=== PATIENT | male | born 1965 | race Caucasian/White ===

== ENCOUNTER 2022-11-05 10:58 | Outpatient (OUT) | payer OTHER, SELFPAY | END 2022-11-05 10:59 | disposition home or self-care (01) | LOC: WC 10:58 | PROVIDERS: PCP Podiatrist Foot & Ankle Surgery; Visit Provider Podiatrist Foot & Ankle Surgery | DX: L89.623 Pressure ulcer of left heel, stage 3 (principal); R60.0 Localized edema; G90.09 Other idiopathic peripheral autonomic neuropathy | CPT/HCPCS: A6213; G0463 ==

== ENCOUNTER 2022-12-03 10:51 | Outpatient (OUT) | payer SELFPAY | END 2022-12-03 10:52 | disposition home or self-care (01) | LOC: WC 10:52 | PROVIDERS: PCP Podiatrist Foot & Ankle Surgery; Visit Provider Podiatrist Foot & Ankle Surgery | DX: L89.623 Pressure ulcer of left heel, stage 3 (principal) | CPT/HCPCS: G0463 ==

== ENCOUNTER 2023-05-28 11:45 | Outpatient (OUT) | payer OTHER, SELFPAY ==
[2023-05-28 12:30] LABS: Basophils Percent Auto 0.5 % (0.2-2.0); Eosinophils Absolute Auto 0.2 10^3/uL (0.0-0.7); Eosinophils Percent Auto 1.9 % (0.9-7.0); Hematocrit 42.1 % (42.0-54.0); Hemoglobin 13.7 g/dL (14.0-18.0); Immature Granulocytes Abs Auto 0.04 10^3/uL (0.00-0.03); Immature Granulocytes Pct Auto 0.5 % (0.0-0.5); Lymphocytes Absolute Auto 1.7 10^3/uL (1.2-3.8); Lymphocytes Percent Auto 19.8 % (20.5-60.0); Mean Corpuscular HGB Conc 32.5 g/dL (29.9-35.2); Mean Corpuscular Hemoglobin 28.7 pg (25.9-34.0); Mean Corpuscular Volume 88.1 fL (80.0-94.0); Mean Platelet Volume 9.2 fL (9.5-13.5); Monocytes Absolute Auto 0.7 10^3/uL (0.3-0.8); Neutrophils Absolute Auto 5.9 10^3/uL (1.4-6.5); Neutrophils Percent Auto 69.3 % (43.0-75.0); Platelet Count 253 10^3/uL (150-450); Red Blood Count 4.78 10^6/uL (4.70-6.10); Red Cell Distribution Width 14.1 % (11.0-15.0); White Blood Count 8.5 10^3/uL (4.0-11.0)
[2023-05-28 12:40] LABS: Estimated Average Glucose 117 mg/dL; Glycohemoglobin A1C 5.7 % (4.5-6.2)
[2023-05-28 13:06] LABS: Alanine Aminotransferase 32 U/L (16-63); Albumin Globulin Ratio 0.9; Albumin Level 3.3 g/dL (3.4-5.0); Alkaline Phosphatase 101 U/L (46-116); Anion Gap 16.7; Aspartate Amino Transferase 17 U/L (15-37); BUN Creatinine Ratio 22.1; Bilirubin Direct 0.1 mg/dL (0.0-0.2); Bilirubin Total 0.5 mg/dL (0.2-1.0); Calcium 8.7 mg/dL (8.5-10.1); Carbon Dioxide 25.9 mmol/L (21.0-32.0); Chloride 115 mmol/L (98-107); Chol HDL Ratio 3.6; Cholesterol 146 mg/dL (<=200); Estimated GFR (African America >60 (>=60); Estimated GFR (Non-African Ame >60 (>=60); Globulin 3.7 g/dL; Glucose 93 mg/dL (74-106); HDL Cholesterol 41 mg/dL (40-60); LDL Cholesterol Calculated 77.4 mg/dL; Potassium 4.6 mmol/L (3.5-5.1); Sodium 153 mmol/L (136-145); TSH W/ REFLEX FT4 2.064 uIU/mL (0.358-3.740); Triglycerides 138 mg/dL (<=150); VLDL CHOLESTEROL 27.6 mg/dL
== END 2023-05-28 11:46 | disposition home or self-care (01) ==
DX: E78.00 Pure hypercholesterolemia, unspecified (principal); I10 Essential (primary) hypertension; Z12.5 Encounter for screening for malignant neoplasm of prostate; I87.2 Venous insufficiency (chronic) (peripheral)
CPT/HCPCS: 36415; 80048; 80061; 80076; 83036; 84153; 84443; 85025

== ENCOUNTER 2023-10-15 14:32 | Outpatient (OUT) | payer OTHER, MEDICARE, SELFPAY | END 2023-10-15 14:33 | disposition home or self-care (01) | LOC: LAB 14:40 | DX: M85.80 Other specified disorders of bone density and structure, unspecified site (principal) | CPT/HCPCS: 36415; 82306 ==

== ENCOUNTER 2023-12-08 16:55 | Outpatient (OUT) | payer OTHER, MEDICARE, SELFPAY ==
--- NOTE | 2023-12-08 17:08 | US_ITS ---
[place] [id number] Patient Name: WENDIE SMITH MRN: [id number] date: 1965 Sex: M Assigned Patient Location: US Current Patient Location: Accession/Order Number: [id number] Exam Date: 12/08/2023 17:36 Report Date: 12/09/2023 07:08 At the request of: NON-STAFF PHYSICIAN Procedure: US venous doppler LE BI EXAM: US venous doppler LE BI HISTORY: Venous insufficiency (chronic) (peropheral) I87.2 COMPARISON: None. TECHNIQUE: Grayscale, color and Doppler FINDINGS: Region: Bilateral legs Thrombus: None Flow: Normal Augmentation: Normal Compressibility: Normal Other: Moderate bilateral subcutaneous edema US/US venous doppler LE BI IMPRESSION: No deep or superficial vein thrombus in the legs Electronically authenticated by: AYANA IRBY Date: 12/09/2023 07:08
--- OUTSIDE RECORDS SUMMARY | 2023-12-08 17:09 | XMS_ITS | CCD ---
Author Organization [facility] Care Team Providers Care Liquid Compounder Name Role Phone MD Rebecca Workman Primary Care Provide r MD Rebecca Workman Attending Provider KRANTHI MCPHERSON Primary Care Physician [phone] MD Rebecca Workman Primary Care Provide r MD Rebecca Workman Attending Provider MD Rebecca Workman Primary Care Provide r MD Rebecca Workman Attending Provider IDA [facility] Emergency Provider SARAH ALANIS Attending Unavailable SARAH ALANIS Attending Unavailable BERTHA TEJADA Admitting Unavailable BERTHA TEJADA Attending Unavailable REQUEST, NONE LISTED Primary Care Unavaila BERTHA Baldwin Admitting Unavailable BERTHA TEJADA Attending Unavailable REQUEST, NONE LISTED Primary Care Unavaila BERTHA Baldwin Admitting Unavailable BERTHA TEJADA Attending Unavailable REQUEST, NONE LISTED Primary Care Unavaila ble MARTINA, DR PIPO Recio Consulting Unavailable BERTHA TEJADA Consulting Unavailable BERTHA TEJADA Admitting Unavailable BERTHA TEJADA Attending Unavailable REQUEST, NONE LISTED Primary Care Unavaila BERTHA Baldwin Attending Unavailable REQUEST, NONE LISTED Primary Care Unavaila BERTHA Baldwin Admitting Unavailable BERTHA TEJADA Admitting Unavailable BERTHA TEJADA Attending Unavailable REQUEST, NONE LISTED Primary Care Unavaila BERTHA Baldwin Admitting Unavailable BERTHA TEJADA Attending Unavailable REQUEST, NONE LISTED Primary Care Unavaila ble HIGHLANDER, BERTHA Elias Admitting Unavailable HIGHLANDER, BERTHA Elias Attending Unavailable REQUEST, NONE LISTED Primary Care Unavaila ble MISC, DR BERNARD Attending Unavailable MISC, DR BERNARD Admitting Unavailable REQUEST, NONE LISTED Primary Care Unavaila ble REQUEST, NONE LISTED Primary Care Unavaila ble MISC, DR BERNARD Attending Unavailable MISC, DR BERNARD Consulting Unavailable MISC, DR BERNARD Admitting Unavailable MAGNO, YVONNE Attending Unavailable MAGNO, YVONNE Admitting Unavailable GRECHHAL ., MARY ELLEN REYNAGA Consulting Unavailabl e REQUEST, NONE LISTED Primary Care Unavaila ble Hause-Wardega, Rebecca Primary Care Unavail able Leyda, Thom Attending Unavailable Leyda, Thom Admitting Unavailable HAUSE-WARDEGA, REBECCA K Referring Unava ilable MUTNAL, AMAR B Attending Unavailable MUTNAL, AMAR B Attending Unavailable HAUSE-WARDEGA, REBECCA K Attending Unava ilable MUTNAL, AMAR B Referring Unavailable MUTNAL, AMAR B Attending Unavailable MUTNAL, AMAR B Attending Unavailable MUTNAL, AMAR Admitting Unavailable MUTNAL, AMAR Attending Unavailable WARDEGA, REBECCA Primary Care Unavailable JOSE YIP Consulting Unavailable MUTNAL, AMAR Referring Unavailable WARDEGA, REBECCA Primary Care Unavailable MUTNAL, AMAR Attending Unavailable MUTNAL, AMAR Referring Unavailable WARDEGA, REBECCA Primary Care Unavailable SCULLIN, MOHAMUD Admitting Unavailable SCULLIN, MOHAMUD Attending Unavailable WARDEGA, REBECCA Primary Care Unavailable AVIVA MCGINNIS Consulting Unavailable BURRELLDINESH Consulting Unavailable MUTNAL, AMAR Consulting Unavailable Allergies Allergy Classification Reported Allergen(s) Allergy Type Date of Onset Reaction(s) Facility Unclassified (1 source) ALLERGIES NOT ON FILE; Translations: [ALLERGIES NOT ON FILE] Propensity to adverse reactions (disorder) [facility] Repository (1 source) No Known Medication Allergies; Translations: [No Known Medication Allergies] Propensity to adverse reactions (disorder) [facility] Medications Current Medications Medication Drug Class(es) Dates Sig (Normalized) Sig (Original) acetaminophen 325 mg / HYDROcodone bitartrate 5 mg oral tablet (4 sources) Opioid Agonist Start: 11-19-2018 take 1 tablet by mouth every six hours Hydrocodone-Acetamin ophen Active 1 - 2 TAB PO Q6H November 18, 2018 11:00pm atorvastatin 40 mg oral tablet (1 source) HMG-CoA Reductase Inhibitor Start: 04-02-2022 atorvastatin 40 mg Tab Refills(s) 0 Start Date: 04/02/22 Status: Ordered cyclobenzaprine hydrochloride 10 mg oral tablet (4 sources) Muscle Relaxant Start: 11-19-2018 take 10 mg by mouth three times daily Cyclobenzaprine Active 10 MG PO Three times daily November 18, 2018 11:00pm doxycycline hyclate 100 mg oral tablet (2 sources) Tetracycline-clas s Drug Start: 05-18-2022 take 100 mg by mouth twice daily Doxycycline Hyclate Active 100 MG PO Twice daily May 18, 2022 12:00am Start upon completion of outpatient IV therapy lisinopril 20 mg oral tablet (1 source) Angiotensin Converting Enzyme Inhibitor Start: 04-02-2022 lisinopril 20 mg Tab Refills(s) 0 Start Date: 04/02/22 Status: Ordered 24 hr metoprolol succinate 50 mg extended release oral tablet (1 source) beta-Adrenergic Radha Start: 04-02-2022 take 1 mg by mouth once daily metoprolol 50 mg ER Tab mg tab(s), Oral, Daily, Refills(s) 0 Start Date: 04/02/22 Status: Ordered Multi Vitamins oral tablet (1 source) Start: 04-14-2019 take 1 tablet by mouth once daily Multi Vitamins oral tablet 1 tab(s), Oral, Daily, Refill(s) 0 Start Date: 04/14/19 Status: Ordered oxybutynin chloride 5 mg oral tablet (1 source) Cholinergic Muscarinic Antagonist Start: 04-02-2022 take 1 tablet by mouth at bedtime oxybutynin 5 mg Tab = 1 tab(s), Oral, Bedtime, # 30 tab(s), Refills(s) 11, called to pharmacy (Rx), 177, cm, 04/02/22 10:20:00 EST, Height/Length Dosing, 113, kg, 04/02/22 10:20:00 EST, Weight Dosing Start Date: 04/02/22 Status: Ordered predniSONE 5 mg oral tablet (8 sources) Start: 11-19-2018 take 60 mg by mouth once daily at mealtime, then take 40 mg by mouth once daily, then take 20 mg by mouth once daily, then take 10 mg by mouth once daily Prednisone Active 0 MG PO As Directed 39 November 18, 2018 11:00pm 60mg daily x 3 days, 40 mg daily x 3 days, 20mg daily x 3 days, 10mg daily x 3 days administer with food or milk Start: 11-19-2018 take 40 mg by mouth once daily Prednisone Active 40 MG PO Daily November 18, 2018 11:00pm Problems Problem Classification Problem Date Documented Da te Episodic/Chronic Administrative/social admission (2 sources) Other reduced mobility; Translations: [Other reduced mobility] Onset: 11-26-2023 Episodic Calculus of urinary tract (1 source) Kidney stone 2019 Episodic Chronic ulcer of skin (14 sources) Pressure ulcer of left heel, stage 3; Translations: [Non-pressure chronic ulcer of left heel and midfoot with fat layer exposed] Onset: 07-26-2022 Chronic Diabetes mellitus with complications (4 sources) Type 2 diabetes mellitus with foot ulcer; Translations: [TYPE 2 DM W/FOOT ULCER] Onset: 08-23-2022 Chronic Disorders of lipid metabolism (2 sources) Pure hypercholesterolemi a, unspecified; Translations: [Pure hypercholesterolemi a, unspecified] Onset: 11-04-2023 Chronic Essential hypertension (2 sources) Essential (primary) hypertension; Translations: [Essential (primary) hypertension] Onset: 11-04-2023 Chronic Genitourinary symptoms and ill-defined conditions (7 sources) Increased frequency of urination; Translations: [Frequency of micturition] Onset: 04-02-2022 Episodic Hyperplasia of prostate (1 source) Benign prostatic hypertrophy with outflow obstruction 04-02-2022 Chronic Osteoarthritis (4 sources) Unilateral primary osteoarthritis, unspecified hip; Translations: [Unilateral primary osteoarthritis, right hip] Onset: 11-04-2023 Chronic Other aftercare (2 sources) Aftercare following joint replacement surgery; Translations: [Aftercare following joint replacement surgery] Onset: 11-25-2023 Chronic Other bone disease and musculoskeletal deformities (2 sources) Other specified disorders of bone density and structure, unspecified site; Translations: [Other specified disorders of bone density and structure, unspecified site] Onset: 11-18-2023 Episodic Other connective tissue disease (2 sources) Presence of right artificial hip joint; Translations: [Presence of right artificial hip joint] Onset: 11-25-2023 Chronic Other connective tissue disease (4 sources) Pain in left foot; Translations: [PAIN IN LEFT FOOT] Onset: 07-23-2022 Episodic Other diseases of bladder and urethra (1 source) Neurogenic bladder 03-15-2019 Chronic Other diseases of veins and lymphatics (4 sources) Lymphedema, not elsewhere classified; Translations: [LYMPHEDEMA NOT ELSEWHERE CLASSIFIED] Onset: 07-08-2022 Chronic Other gastrointestinal disorders (2 sources) Incontinence of feces; Translations: [Full incontinence of feces] Onset: 04-02-2022 Episodic Other male genital disorders (2 sources) Male erectile dysfunction, unspecified; Translations: [Erectile dysfunction] Onset: 04-02-2022 Chronic Other screening for suspected conditions (not mental disorders or infectious disease) (3 sources) Encounter for screening for malignant neoplasm of prostate; Translations: [Screening for malignant neoplasm done] Onset: 04-02-2022 Episodic Residual codes; unclassified (2 sources) Other specified health status; Translations: [Other specified health status] Onset: 11-26-2023 Episodic Residual codes; unclassified (2 sources) Localized edema; Translations: [Localized edema] Onset: 11-18-2023 Episodic Skin and subcutaneous tissue infections (2 sources) Cellulitis; Translations: [Cellulitis, unspecified] 05-18-2022 Episodic Spondylosis; intervertebral disc disorders; other back problems (4 sources) Chronic low back pain; Translations: [Chronic bilateral low back pain] 11-19-2018 Episodic Unclassified (1 source) Patient encounter status 04-02-2022 Unclassified (1 source) Cellulitis of left lower limb; Translations: [Cellulitis of left lower limb] Onset: 05-20-2022 Results Test Name Value Interpretation Reference Range Facility Urinalysis, reflex to cultur olivier 11-27-2023 Bilirubin Ql (U) Negative Normal Negative [facility] Comment on above: Performed By: #### U AR #### [facility] [address] [place] [address] Clarity (U) Clear Normal Clear [facility] Comment on above: Performed By: #### U AR #### [facility] [address] [facility] [address] Color (U) Yellow Normal Straw/Mobile [facility] Comment on above: Performed By: #### U AR #### [facility] [address] [place] [address] Glucose Ql (U) Negative Normal Negative [facility] Comment on above: Performed By: #### U AR #### [facility] [address] [place] [address] Hemoglobin Ql (U) Negative Normal Negative [facility] Comment on above: Performed By: #### U AR #### [facility] [address] [place] [address] Ketones Ql (U) Negative Normal Negative [facility] Comment on above: Performed By: #### U AR #### [facility] [address] [place] [address] Leukocyte esterase Test strip Ql (U) Negative Normal Negative [facility] Comment on above: Performed By: #### U AR #### [facility] [address] [place] [address] Nitrite Ql (U) Negative Normal Negative [facility] Comment on above: Performed By: #### U AR #### [facility] [address] [place] [address] pH (U) 5.5 [pH] Normal 5.0-9.0 [facility] Comment on above: Performed By: #### U AR #### [facility] [address] [place] [address] Protein Ql (U) Negative Normal Negative [facility] Comment on above: Performed By: #### U AR #### [facility] [address] [place] [address] Specific gravity (U) [Rel density] 1.014 Normal 1.005-1.03 [facility] Comment on above: Performed By: #### U AR #### [facility] [address] [place] [address] Urine Reflexed to Culture Not Indicated Normal [facility] Comment on above: Performed By: #### U AR #### [facility] [address] [place] [address] Urobilinogen Qn (U) 1.0 {Denisa'U}/dL Normal < 2.0 [facility] Comment on above: Performed By: #### U AR #### [facility] [address] [place] [address] Basic Metabolic Panel Reflex Mgon 11-26-2023 Anion gap [Moles/Vol] 11 mmol/L Normal 9-15 [facility] Comment on above: Performed By: #### B MPX #### [facility] [address] [place] [address] Calcium [Mass/Vol] 7.9 mg/dL Low 8.5-9.9 [facility] Comment on above: Performed By: #### B MPX #### [facility] [address] [place] [address] Chloride [Moles/Vol] 98 mmol/L Normal 95-107 [facility] Comment on above: Performed By: #### B MPX #### [facility] [address] [place] [address] CO2 [Moles/Vol] 23 mmol/L Normal 20-31 [facility] Comment on above: Performed By: #### B MPX #### [facility] [address] [place] [address] Creatinine [Mass/Vol] 1.16 mg/dL Normal 0.70-1.20 [facility] Comment on above: Performed By: #### B MPX #### [facility] [address] [place] [address] GFR 71.7 Normal >60 [facility] Comment on above: Result Comment: Sonny atric calculator link https://www.kidney.org/professionals/kdoqi/gfr_calculatorped Effective Feb 11, 2022 These results are not intended for use in patients <18 years of age. eGFR results are calculated without a race factor using the 2020 CKD-EPI equation. Careful clinical correlation is recommended, particularly when comparing to results calculated using previous equations. The CKD-EPI equation is less accurate in patients with extremes of muscle mass, extra-renal metabolism of creatinine, excessive creatinine ingestion, or following therapy that affects renal tubular secretion. Performed By: #### B MPX #### [facility] [address] [place] [address] Glucose [Mass/Vol] 128 mg/dL Critically high 70-99 [facility] Comment on above: Performed By: #### B MPX #### [facility] [address] [place] [address] Magnesium [Moles/Vol] 4.7 mmol/L Normal 3.4-4.9 [facility] Comment on above: Performed By: #### B MPX #### [facility] [address] [place] [address] Sodium [Moles/Vol] 132 mmol/L Low 135-144 [facility] Comment on above: Performed By: #### B MPX #### [facility] [address] [place] [address] Urea nitrogen [Mass/Vol] 28 mg/dL Critically high 8-23 [facility] Comment on above: Performed By: #### B MPX #### [facility] [address] [place] [address] CBC With Platelet No Differe ntialon 11-26-2023 Erythrocyte distribution width (RBC) [Ratio] 15.1 % Critically high 11.5-14.5 [facility] Comment on above: Performed By: #### C BCND #### [facility] [address] [place] [address] Hematocrit (Bld) [Volume fraction] 30.8 % Low 42.0-52.0 [facility] Comment on above: Performed By: #### C BCND #### [facility] [address] [place] [address] Hemoglobin (Bld) [Mass/Vol] 10.2 g/dL Low 14.0-18.0 [facility] Comment on above: Performed By: #### C BCND #### [facility] [address] [place] [address] MCH (RBC) [Entitic mass] 29.1 pg Normal 27.0-31.3 [facility] Comment on above: Performed By: #### C BCND #### [facility] [address] [place] [address] MCHC 33.1 % Normal 33.0-37.0 [facility] Comment on above: Performed By: #### C BCND #### [facility] [address] [place] [address] MCV (RBC) [Entitic vol] 88.0 fL Normal 79.0-92.2 [facility] Comment on above: Performed By: #### C BCND #### [facility] [address] [place] [address] Platelets (Bld) [#/Vol] 253 10*3/uL Normal 130-400 [facility] Comment on above: Performed By: #### C BCND #### [facility] [address] [place] [address] RBC (Bld) [#/Vol] 3.50 10*6/uL Low 4.70-6.10 [facility] Comment on above: Performed By: #### C BCND #### [facility] [address] [place] [address] WBC (Bld) [#/Vol] 14.9 10*3/uL Critically high 4.8-10.8 [facility] Comment on above: Performed By: #### C BCND #### [facility] [address] [place] [address] FLUORO FOR SURGICAL PROCEDUR ESon 11-25-2023 FLUORO FOR SURGICAL PROCEDURES EXAMINATION: SPOT FLUOROSCOPIC IMAGES 11/25/2023 6:54 am TECHNIQUE: Fluoroscopy was provided by the radiology department for procedure. Radiologist was not present during examination. FLUOROSCOPY DOSE AND TYPE: Radiation Exposure Index: Kerma mGy, 27.3 COMPARISON: None HISTORY: ORDERING SYSTEM PROVIDED HISTORY: pain TECHNOLOGIST PROVIDED HISTORY: Reason for exam:->pain What reading provider will be dictating this exam?->CRC Intraprocedural imaging. FINDINGS: Spot intraoperative images are obtained demonstrating . IMPRESSION: Intraprocedural fluoroscopic spot images of the right hip. See separate procedure report for more information. Interpreted by: Kranthi Muñoz MD Signed by: Kranthi Muñoz MD 11/25/23 Final result Normal [facility] XR PELVIS (1-2 VIEWS)on 11-09 XR PELVIS (1-2 VIEWS) EXAMINATION: ONE XRAY VIEW OF THE PELVIS 11/25/2023 12:34 pm COMPARISON: None. HISTORY: ORDERING SYSTEM PROVIDED HISTORY: post-op TECHNOLOGIST PROVIDED HISTORY: Reason for exam:->post-op What reading provider will be dictating this exam?->CRC FINDINGS: Two views are submitted. Patient is status post right total hip arthroplasty. Satisfactory alignment. No dislocation. No jose miguel-implant fracture IMPRESSION: Status post right total hip arthroplasty Interpreted by: Kranthi Muñoz MD Signed by: rKanthi Muñoz MD 11/25/23 Final result Normal [facility] Type and Screen Capture 3 sc danyelle stover 11-18-2023 Type and Screen Capture 3 scrn cell PATIENT: LUIS PRESSLEY LOC: [facility] BILL# : [id number] : 1965 SEX: M ORDERED BY: YVETTE Akins ORDERED : 11/18/2023 16:16 COLLECTED: 11/18/2023 16:51 ORDER : [id number] RECEIVED : 11/18/2023 16:51 --- TEST NAME RESULT UNITS RANGES ABN FL ST ABORH Capture A POS F Antibody 3 Cell Scrn Captu NEG F -- Normal [facility] Comment on above: Performed By: #### T S3C #### [facility] [address] [place] [address] XR CHEST (SINGLE VIEW FRONTA L)on 11-18-2023 XR CHEST (SINGLE VIEW FRONTAL) EXAMINATION: ONE XRAY VIEW OF THE CHEST 11/18/2023 4:32 pm COMPARISON: None. HISTORY: ORDERING SYSTEM PROVIDED HISTORY: pre-op TECHNOLOGIST PROVIDED HISTORY: Reason for exam:->pre-op What reading provider will be dictating this exam?->CRC FINDINGS: The lungs are without acute focal process. There is no effusion or pneumothorax. The cardiomediastinal silhouette is without acute process. The osseous structures are without acute process. IMPRESSION: No acute process. Interpreted by: Ayana Espinoaz MD Signed by: Ayana Espinoza MD 11/18/23 Final result Normal [facility] Basic metabolic 2000 panelon 11-04-2023 Anion gap [Moles/Vol] 8 mmol/L Low 10-20 [facility] Comment on above: Performed By: #### 2 4321-2 #### NUPUR KOWALSKI ([id number]) [facility] ([facility]) [address] [place] [address] Calcium [Mass/Vol] 8.9 mg/dL Normal 8.6-10.3 [facility] Comment on above: Performed By: #### 2 4321-2 #### NUPUR KOWALSKI ([id number]) [facility] ([facility]) [address] [place] [address] Chloride [Moles/Vol] 104 mmol/L Normal 98-107 [facility] Comment on above: Performed By: #### 2 4321-2 #### NUPUR KOWALSKI ([id number]) [facility] ([facility]) [address] [place] [address] CO2 [Moles/Vol] 29 mmol/L Normal 21-32 [facility] Comment on above: Performed By: #### 2 4321-2 #### NUPUR KOWALSKI ([id number]) [facility] ([facility]) [address] [place] [address] Creatinine [Mass/Vol] 0.98 mg/dL Normal 0.50-1.30 [facility] Comment on above: Performed By: #### 2 4321-2 #### NUPUR KOWALSKI ([id number]) [facility] ([facility]) [address] [place] [address] Glomerular filtration rate/1.73 sq M.predicted 88 mL/min/1.73m*2 Normal >60 [facility] Comment on above: Result Comment: Calc ulations of estimated GFR are performed using the 2020 CKD-EPI Study Refit equation without the race variable for the IDMS-Traceable creatinine methods. https://jasn.asnjournals.org/content/early//ASN.29541 02736 Performed By: #### 2 432-2 #### NUPUR KOWALSKI ([id number]) [facility] ([facility]) [address] [place] [address] Glucose [Mass/Vol] 95 mg/dL Normal 74-99 [facility] Comment on above: Performed By: #### 2 4321-2 #### NUPUR KOWALSKI ([id number]) [facility] ([facility]) [address] [place] [address] Potassium [Moles/Vol] 4.8 mmol/L Normal 3.5-5.3 [facility] Comment on above: Performed By: #### 2 4321-2 #### NUPUR KOWALSKI ([id number]) [facility] ([facility]) [address] [place] [address] Sodium [Moles/Vol] 136 mmol/L Normal 136-145 [facility] Comment on above: Performed By: #### 2 4321-2 #### NUPUR KOWALSKI ([id number]) [facility] ([facility]) [address] [place] [address] Urea nitrogen [Mass/Vol] 15 mg/dL Normal 6-23 [facility] Comment on above: Performed By: #### 2 4321-2 #### NUPUR KOWALSKI ([id number]) [facility] ([facility]) [address] [place] [address] Blood type and Indirect anti body screen panel (Bld)on 11-04-2023 ABO group Nom (Bld) A Normal [facility] Comment on above: Performed By: #### 3 4532-2 #### ANNE-MARIE Crane ([id number]) [facility] ([facility]) [address] [place] [address] Blood group antibody screen Ql Negative [facility] Comment on above: Performed By: #### 3 4532-2 #### ANNE-MARIE Crane ([id number]) [facility] ([facility]) [address] [place] [address] D Ag Ql (Bld) Positive [facility] Comment on above: Result Comment: 2nd ABO test required. Order and Collect VERAB Performed By: #### 3 4532-2 #### ANNE-MARIE Crane ([id number]) [facility] ([facility]) [address] [place] [address] CBC W Auto Differential pane l (Bld)on 11-04-2023 Basophils (Bld) [#/Vol] 0.03 x10*3/uL Normal 0.00-0.10 [facility] Comment on above: Performed By: #### 5 7021-8 #### NUPUR KOWALSKI ([id number]) [facility] ([facility]) [address] [place] [address] Basophils/100 WBC (Bld) 0.3 % Normal 0.0-2.0 [facility] Comment on above: Performed By: #### 5 7021-8 #### NUPUR KOWALSKI ([id number]) [facility] ([facility]) [address] [place] [address] Eosinophils (Bld) [#/Vol] 0.12 x10*3/uL Normal 0.00-0.70 [facility] Comment on above: Performed By: #### 5 7021-8 #### NUPUR KOWALSKI ([id number]) [facility] ([facility]) [address] [place] [address] Eosinophils/100 WBC (Bld) 1.4 % Normal 0.0-6.0 [facility] Comment on above: Performed By: #### 5 7021-8 #### NUPUR KOWALSKI ([id number]) [facility] ([facility]) [address] [place] [address] Erythrocyte distribution width (RBC) [Ratio] 14.6 % High 11.5-14.5 [facility] Comment on above: Performed By: #### 5 7021-8 #### NUPUR KOWALSKI ([id number]) [facility] ([facility]) [address] [place] [address] Hematocrit (Bld) [Volume fraction] 41.8 % Normal 41.0-52.0 [facility] Comment on above: Performed By: #### 5 7021-8 #### NUPUR KOWALSKI ([id number]) [facility] ([facility]) [address] [place] [address] Hemoglobin (Bld) [Mass/Vol] 13.6 g/dL Normal 13.5-17.5 [facility] Comment on above: Performed By: #### 5 7021-8 #### NUPUR KOWALSKI ([id number]) [facility] ([facility]) [address] [place] [address] Immature granulocytes (Bld) [#/Vol] 0.04 x10*3/uL Normal 0.00-0.70 [facility] Comment on above: Performed By: #### 5 7021-8 #### NUPUR KOWALSKI ([id number]) [facility] ([facility]) [address] [place] [address] Immature granulocytes/100 WBC (Bld) 0.5 % Normal 0.0-0.9 [facility] Comment on above: Result Comment: Juany ture Granulocyte Count (IG) includes promyelocytes, myelocytes and metamyelocytes but does not include bands. Percent differential counts (%) should be interpreted in the context of the absolute cell counts (cells/UL). Performed By: #### 5 7021-8 #### NUPUR KOWALSKI ([id number]) [facility] ([facility]) [address] [place] [address] Lymphocytes (Bld) [#/Vol] 1.96 x10*3/uL Normal 1.20-4.80 [facility] Comment on above: Performed By: #### 5 7021-8 #### NUPUR KOWALSKI ([id number]) [facility] ([facility]) [address] [place] [address] Lymphocytes/100 WBC (Bld) 22.1 % Normal 13.0-44.0 [facility] Comment on above: Performed By: #### 5 7021-8 #### NUPUR KOWALSKI ([id number]) [facility] ([facility]) [address] [place] [address] MCH (RBC) [Entitic mass] 29.1 pg Normal 26.0-34.0 [facility] Comment on above: Performed By: #### 5 7021-8 #### NUPUR KOWALSKI ([id number]) [facility] ([facility]) [address] [place] [address] MCHC (RBC) [Mass/Vol] 32.5 g/dL Normal 32.0-36.0 [facility] Comment on above: Performed By: #### 5 7021-8 #### NUPUR KOWALSKI ([id number]) [facility] ([facility]) [address] [place] [address] MCV (RBC) [Entitic vol] 90 fL Normal 80-100 [facility] Comment on above: Performed By: #### 5 7021-8 #### NUPUR KOWALSKI ([id number]) [facility] ([facility]) [address] [place] [address] Monocytes (Bld) [#/Vol] 0.68 x10*3/uL Normal 0.10-1.00 [facility] Comment on above: Performed By: #### 5 7021-8 #### NUPUR KOWALSKI ([id number]) [facility] ([facility]) [address] [place] [address] Monocytes/100 WBC (Bld) 7.7 % Normal 2.0-10.0 [facility] Comment on above: Performed By: #### 5 7021-8 #### NUPUR KOWALSKI ([id number]) [facility] ([facility]) [address] [place] [address] Neutrophils (Bld) [#/Vol] 6.05 x10*3/uL Normal 1.20-7.70 [facility] Comment on above: Result Comment: Perc ent differential counts (%) should be interpreted in the context of the absolute cell counts (cells/uL). Performed By: #### 5 7021-8 #### NUPUR KOWALSKI ([id number]) [facility] ([facility]) [address] [place] [address] Neutrophils/100 WBC (Bld) 68.0 % Normal 40.0-80.0 [facility] Comment on above: Performed By: #### 5 7021-8 #### NUPUR KOWALSKI ([id number]) [facility] ([facility]) [address] [place] [address] Nucleated RBC/100 WBC (Bld) [Ratio] 0.0 /100 WBCs Normal 0.0-0.0 [facility] Comment on above: Performed By: #### 5 7021-8 #### NUPUR KOWALSKI ([id number]) [facility] ([facility]) [address] [place] [address] Platelets (Bld) [#/Vol] 296 x10*3/uL Normal 150-450 [facility] Comment on above: Performed By: #### 5 7021-8 #### NUPUR KOWALSKI ([id number]) [facility] ([facility]) [address] [place] [address] RBC (Bld) [#/Vol] 4.67 x10*6/uL Normal 4.50-5.90 [facility] Comment on above: Performed By: #### 5 7021-8 #### NUPUR KOWALSKI ([id number]) [facility] ([facility]) [address] [place] [address] WBC (Bld) [#/Vol] 8.9 x10*3/uL Normal 4.4-11.3 [facility] Comment on above: Performed By: #### 5 7021-8 #### NUPUR KOWALSKI ([id number]) [facility] ([facility]) [address] [place] [address] Coagulation tissue factor in ducedon 11-04-2023 PT Coag (PPP) [Time] 11.5 s Normal 9.8-12.8 [facility] Comment on above: Performed By: #### 5 902-2 #### NUPUR KOWALSKI ([id number]) [facility] ([facility]) [address] [place] [address] Hepatic function 2000 panelo n 11-04-2023 Albumin BCP dye [Mass/Vol] 4.0 g/dL Normal 3.4-5.0 [facility] Comment on above: Performed By: #### 2 4325-3 #### NUPUR KOWALSKI ([id number]) [facility] ([facility]) [address] [place] [address] ALP [Catalytic activity/Vol] 91 U/L Normal 33-136 [facility] Comment on above: Performed By: #### 2 4325-3 #### NUPUR KOWALSKI ([id number]) [facility] ([facility]) [address] [place] [address] ALT With P-5'-P [Catalytic activity/Vol] 17 U/L Normal 10-52 [facility] Comment on above: Result Comment: Bettye ents treated with Sulfasalazine may generate falsely decreased results for ALT. Performed By: #### 2 4325-3 #### NUPUR KOWALSKI ([id number]) [facility] ([facility]) [address] [place] [address] AST With P-5'-P [Catalytic activity/Vol] 16 U/L Normal 9-39 [facility] Comment on above: Performed By: #### 2 4325-3 #### NUPUR KOWALSKI ([id number]) [facility] ([facility]) [address] [place] [address] Bilirubin [Mass/Vol] 0.6 mg/dL Normal 0.0-1.2 [facility] Comment on above: Performed By: #### 2 4325-3 #### NUPUR KOWALSKI ([id number]) [facility] ([facility]) [address] [place] [address] Bilirubin.direct [Mass/Vol] 0.1 mg/dL Normal 0.0-0.3 [facility] Comment on above: Performed By: #### 2 4325-3 #### NUPUR KOWALSKI ([id number]) [facility] ([facility]) [address] [place] [address] Protein [Mass/Vol] 6.7 g/dL Normal 6.4-8.2 [facility] Comment on above: Performed By: #### 2 4325-3 #### NUPUR KOWALSKI ([id number]) [facility] ([facility]) [address] [place] [address] Iron and Iron binding capaci ty panelon 11-04-2023 Iron [Mass/Vol] 47 ug/dL Normal 35-150 [facility] Comment on above: Performed By: #### 5 0190-8 #### NUPUR KOWALSKI ([id number]) [facility] ([facility]) [address] [place] [address] Iron binding capacity [Mass/Vol] 302 ug/dL Normal 240-445 [facility] Comment on above: Performed By: #### 5 0190-8 #### NUPUR KOWALSKI ([id number]) [facility] ([facility]) [address] [place] [address] Iron binding capacity.unsaturated [Mass/Vol] 255 ug/dL Normal 110-370 [facility] Comment on above: Performed By: #### 5 0190-8 #### NUPUR KOWALSKI ([id number]) [facility] ([facility]) [address] [place] [address] Iron saturation [Mass fraction] 16 % Low 25-45 [facility] Comment on above: Performed By: #### 5 0190-8 #### NUPUR KOWALSKI ([id number]) [facility] ([facility]) [address] [place] [address] Lipid 1996 panelon 4 Cholesterol [Mass/Vol] 135 mg/dL Normal 0-199 [facility] Comment on above: Result Comment: Age Desirable Borderline High High 0-19 Y 0 - 169 170 - 199 >/= 200 20-24 Y 0 - 189 190 - 224 >/= 225 >24 Y 0 - 199 200 - 239 >/= 240 All ranges are based on fasting samples. Specific therapeutic targets will vary based on patient-specific cardiac risk. Pediatric guidelines reference:Pediatrics 2011, 128(S5).Adult guidelines reference: NCEP ATPIII Guidelines,TONYA 2001, 258:2486-97 Venipuncture immediately after or during the administration of Metamizole may lead to falsely low results. Testing should be performed immediately prior to Metamizole dosing. Performed By: #### 2 4331-1 #### NUPUR KOWALSKI ([id number]) [facility] ([facility]) [address] [place] [address] Cholesterol in HDL [Mass/Vol] 34.6 mg/dL Normal [facility] Comment on above: Result Comment: Age Very Low Low Normal High 0-19 Y < 35 < 40 40-45 ---- 20-24 Y ---- < 40 >45 ---- >24 Y ---- < 40 40-60 >60 Performed By: #### 2 4331-1 #### NUPUR KOWALSKI ([id number]) [facility] ([facility]) [address] [place] [address] Cholesterol in LDL [Mass/Vol] 65 mg/dL Normal <=99 [facility] Comment on above: Result Comment: Near Borderline AGE Desirable Optimal High High Very High 0-19 Y 0 - 109 --- 110-129 >/= 130 ---- 20-24 Y 0 - 119 --- 120-159 >/= 160 ---- >24 Y 0 - 99 100-129 130-159 160-189 >/=190 Performed By: #### 2 4331-1 #### NUPUR KOWALSKI ([id number]) [facility] ([facility]) [address] [place] [address] Cholesterol in VLDL [Mass/Vol] 35 mg/dL Normal 0-40 [facility] Comment on above: Performed By: #### 2 4331-1 #### NUPUR KOWALSKI ([id number]) [facility] ([facility]) [address] [place] [address] CHOLESTEROL/HDL RATIO 3.9 Normal [facility] Comment on above: Result Comment: Ref Values Desirable < 3.4 High Risk > 5.0 Performed By: #### 2 4331-1 #### NUPUR KOWALSKI ([id number]) [facility] ([facility]) [address] [place] [address] NON HDL CHOLESTEROL 100 mg/dL Normal 0-149 [facility] Comment on above: Result Comment: Age Desirable Borderline High High Very High 0-19 Y 0 - 119 120 - 144 >/= 145 >/= 160 20-24 Y 0 - 149 150 - 189 >/= 190 ---- >24 Y 30 mg/dL above LDL Cholesterol goal Performed By: #### 2 4331-1 #### NUPUR KOWALSKI ([id number]) [facility] ([facility]) [address] [place] [address] Triglyceride [Mass/Vol] 176 mg/dL High 0-149 [facility] Comment on above: Result Comment: Age Desirable Borderline High High Very High 0 D-90 D 19 - 174 ---- ---- ---- 91 D- 9 Y 0 - 74 75 - 99 >/= 100 ---- 10-19 Y 0 - 89 90 - 129 >/= 130 ---- 20-24 Y 0 - 114 115 - 149 >/= 150 ---- >24 Y 0 - 149 150 - 199 200- 499 >/= 500 Venipuncture immediately after or during the administration of Metamizole may lead to falsely low results. Testing should be performed immediately prior to Metamizole dosing. Performed By: #### 2 4331-1 #### NUPUR DEX ([id number]) [facility] ([facility]) [address] [place] [address] PSA, TOTAL AND FREEon 2023 Free PSA [Mass/Vol] 0.2 ng/mL Normal [facility] Comment on above: Performed By: #### P SAFT #### [facility] ([facility]) ([id number]) [address] [place] [address] Free PSA/Total PSA [Mass fraction] 22 % Normal [facility] Comment on above: Result Comment: INTE RPRETIVE INFORMATION: Prostate Specific Antigen, Free Percentage [employer] uses the Nataliia Free PSA electrochemiluminescent immunoassay method in conjunction with the Popdust PSA electrochemiluminescent immunoassay method to determine the free PSA percentage. Values obtained with different assay methods should not be used interchangeably. The free PSA percentage is an aid in distinguishing prostate cancer from benign prostatic conditions in individuals with a prostate age 50 years and older with a total PSA between 3 and 10 ng/mL and negative digital rectal examination findings. Prostatic biopsy is required for the diagnosis of cancer. In patients with total PSA concentrations of 4-10 ng/mL, the probability of finding prostate cancer on needle biopsy by age in years is: %fPSA 50-59 60-69 70 or older 0 - 10% 49% 58% 65% 11 - 18% 27% 34% 41% 19 - 25% 18% 24% 30% Greater than 25% 9% 12% 16% Other factors may help determine the actual risk of prostate cancer in individual patients. Performed By: [facility] [address] [place] [address]: Smooth Hallman MD, PhD CLIA Number: [id number] Performed By: #### P SAFT #### [facility] ([facility]) ([id number]) [address] [place] [address] Prostate specific Ag IA [Mass/Vol] 0.9 ng/mL Normal 0.0-4.0 [facility] Comment on above: Result Comment: INTE RPRETIVE INFORMATION: Prostate Specific Antigen The Nataliia PSA electrochemiluminescent immunoassay is used. Results obtained with different test methods or kits cannot be used interchangeably. The Nataliia PSA method is approved for use as an aid in the detection of prostate cancer when used in conjunction with a digital rectal exam in individuals with a prostate age 50 years and older. The Nataliia PSA is also indicated for the serial measurement of PSA to aid in the prognosis and management of prostate cancer patients. Elevated PSA concentrations can only suggest the presence of prostate cancer until biopsy is performed. PSA concentrations can also be elevated in benign prostatic hyperplasia or inflammatory conditions of the prostate. PSA is generally not elevated in healthy individuals or individuals with nonprostatic carcinoma. Performed By: #### P SAFT #### [facility] ([facility]) ([id number]) [address] [place] [address] PT Coag (PPP) [Time]on 11-03 INR Coag (PPP) [Relative time] 1.0 Normal 0.9-1.1 [facility] Comment on above: Performed By: #### 5 902-2 #### NUPUR KOWALSKI ([id number]) [facility] ([facility]) [address] [place] [address] Thyrotropinon 11-04-2023 TSH Qn 2.05 m[IU]/L Normal 0.44-3.98 [facility] Comment on above: Order Comment: TSH t esting is performed using different testing methodology at [facility] than [facility]. Direct result comparisons should only be made within the same method. Performed By: #### 3 016-3 #### NUPUR KOWALSIK ([id number]) [facility] ([facility]) [address] [place] [address] Urinalysis complete panel (U )on 11-04-2023 Appearance (U) Clear Normal Clear [facility] Comment on above: Performed By: #### 2 4356-8 #### NUPUR KOWALSKI ([id number]) [facility] ([facility]) [address] [place] [address] Bilirubin (U) [Mass/Vol] Negative Normal NEGATIVE [facility] Comment on above: Performed By: #### 2 4356-8 #### NUPUR KOWALSKI ([id number]) [facility] ([facility]) [address] [place] [address] Color (U) Light-Yellow Normal Light-Yello w, Yellow, Dark-Yellow [facility] Comment on above: Performed By: #### 2 4356-8 #### NUPUR KOWALSKI ([id number]) [facility] ([facility]) [address] [place] [address] Glucose Auto test strip (U) [Mass/Vol] Normal Normal Normal [facility] Comment on above: Performed By: #### 2 4356-8 #### NUPUR KOWALSKI ([id number]) [facility] ([facility]) [address] [place] [address] Ketones (U) [Mass/Vol] Negative Normal NEGATIVE [facility] Comment on above: Performed By: #### 2 4356-8 #### NUPUR KOWALSKI ([id number]) [facility] ([facility]) [address] [place] [address] Leukocyte esterase Auto test strip Ql (U) Negative Normal NEGATIVE [facility] Comment on above: Performed By: #### 2 4356-8 #### NUPUR KOWALSKI ([id number]) [facility] ([facility]) [address] [place] [address] Nitrite Auto test strip Ql (U) Negative Normal NEGATIVE [facility] Comment on above: Performed By: #### 2 4356-8 #### NUPUR KOWALSKI ([id number]) [facility] ([facility]) [address] [place] [address] pH (U) 6.5 [pH] Normal 5.0, 5.5, 6.0, 6.5, 7.0, 7.5, 8.0 [facility] Comment on above: Performed By: #### 2 4356-8 #### NUPUR KOWALSKI ([id number]) [facility] ([facility]) [address] [place] [address] Protein (U) [Mass/Vol] Negative Normal NEGAT EDDIE, 10 (TRACE), 20 (TRACE) [facility] Comment on above: Performed By: #### 2 4356-8 #### NUPUR KOWALSKI ([id number]) [facility] ([facility]) [address] [place] [address] RBC (U) [#/Vol] Negative Normal NEGATIVE [facility] Comment on above: Performed By: #### 2 4356-8 #### NUPUR KOWALSKI ([id number]) [facility]) [address] [place] [address] Specific gravity (U) [Rel density] 1.012 Normal 1.005-1.035 [facility] Comment on above: Performed By: #### 2 4356-8 #### NUPUR KOWALSKI ([id number]) [facility] ([facility]) [address] [place] [address] Urobilinogen (U) [Mass/Vol] Normal Normal Normal [facility] Comment on above: Performed By: #### 2 4356-8 #### NUPUR KOWALSKI ([id number]) [facility]) [address] [place] [address] XR HIP 4+ VW RIGHTon 024 XR HIP 4+ VW RIGHT FINDINGS: Mild left, severe right superior hip joint space reduction is seen. No pincer deformities. Bilateral several mm os acetabuli, non-acute appearance. Moderate sized right CAM deformity. No cortical or stress fracture is identified. Pelvic ring and sacral struts are intact. Soft tissues are relatively unremarkable. IMPRESSION: Mild left, severe right hip osteoarthritis TRANSCRIBED BY: ELECTRONICALLY SIGNED BY: Jose Arias MD Normal Not Available XR ANKLE RT MIN 3 VIEWSon XR ANKLE RT MIN 3 VIEWS EXAM: XR ANKLE RT MIN 3 VIEWS HISTORY: Right ankle pain after fall COMPARISON: None. TECHNIQUE: 3 views FINDINGS: Diffuse subcutaneous soft tissue edema. Questionable nondisplaced horizontal fracture of the distal fibula that communicates with the talocrural articulation. The remainder of the osseous structures are unremarkable. Moderate degenerative changes of the midfoot. The talocrural articulation is maintained. IMPRESSION: Questionable nondisplaced horizontal fracture of the distal fibula Electronically authenticated by: AYANA ZUÑIGA Date: 2022-10-09 20:00 Normal [facility] CBC AUTO DIFFon 07-26-2022 BASO # 0.1 103/ul Normal 0.0-0.1 [facility] Comment on above: Performed By: #### C BC #### [facility] [address] [address] [address] Darien Mason Basophils/100 WBC (Bld) 0.5 % Normal 0.2-2.0 [facility] Comment on above: Performed By: #### C BC #### [facility] [address] [address] [address] Darien Mason EO # 0.2 103/ul Normal 0.0-0.7 [facility] Comment on above: Performed By: #### C BC #### [facility] [address] [address] [address] Darien Mason Eosinophils/100 WBC (Bld) 2.2 % Normal 0.9-7.0 [facility] Comment on above: Performed By: #### C BC #### [facility] [address] [address] [address] Darien Mason Erythrocyte distribution width (RBC) [Ratio] 15.9 % Critically high 11.0-15.0 [facility] Comment on above: Performed By: #### C BC #### [facility] [address] [place] [address] Dr. Darien Mason Hematocrit (Bld) [Volume fraction] 37.7 % Critically low 42.0-54.0 [facility] Comment on above: Performed By: #### C BC #### [facility] [address] [address] [address] Darien Mason Hemoglobin (Bld) [Mass/Vol] 11.3 g/dL Critically low 14.0-18.0 [facility] Comment on above: Performed By: #### C BC #### [facility] [address] [place] [address] Dr. Darien Mason IG # 0.10 10e3/ul Critically high 0.00-0.03 [facility] Comment on above: Performed By: #### C BC #### [facility] [address] [place] [address] Dr. Darien Mason IG % 0.9 % Critically high 0.0-0.5 [facility] Comment on above: Performed By: #### C BC #### [facility] [address] [place] [address] Dr. Darien Mason LYMPH # 2.7 103/ul Normal 1.2-3.8 [facility] Comment on above: Performed By: #### C BC #### [facility] [address] [place] [address] Dr. Darien Mason Lymphocytes/100 WBC (Bld) 24.0 % Normal 20.5-60.0 [facility] Comment on above: Performed By: #### C BC #### [facility] [facility] [address] [place] [address] Dr. Darien Mason MANUAL DIFF REQ NO Normal [facility] Comment on above: Performed By: #### C BC #### [facility] [address] [place] [address] Dr. Darien Mason MCH (RBC) [Entitic mass] 25.3 pg Critically low 25.9-34.0 [facility] Comment on above: Performed By: #### C BC #### [facility] [address] [place] [address] Dr. Darien Mason MCHC (RBC) [Mass/Vol] 30.0 g/dL Normal 29.9-35.2 [facility] Comment on above: Performed By: #### C BC #### [facility] [address] [place] [address] Dr. Darien Mason MCV (RBC) [Entitic vol] 84.5 fL Normal 80.0-94.0 [facility] Comment on above: Performed By: #### C BC #### [facility] [address] [place] [address] Dr. Darien Mason MONO # 0.7 103/ul Normal 0.3-0.8 [facility] Comment on above: Performed By: #### C BC #### [facility] [address] [place] [address] Dr. Darien Mason Monocytes/100 WBC (Bld) 6.0 % Normal 1.7-12.0 [facility] Comment on above: Performed By: #### C BC #### [facility] [address] [place] [address] Dr. Darien Mason NEUT # 7.4 103/ul Critically high 1.4-6.5 [facility] Comment on above: Performed By: #### C BC #### [facility] [address] [place] [address] Dr. Darien Mason Neutrophils/100 WBC (Bld) 66.4 % Normal 43.0-75.0 [facility] Comment on above: Performed By: #### C BC #### [facility] [address] [place] [address] Dr. Darien Mason Platelet mean volume (Bld) [Entitic vol] 8.8 fL Critically low 9.5-13.5 [facility] Comment on above: Performed By: #### C BC #### [facility] [address] [place] [address] Dr. Darien Mason PLT 499 103/ul Critically high 150-450 [facility] Comment on above: Performed By: #### C BC #### [facility] [address] [place] [address] Dr. Darien Mason RBC 4.46 106/ul Critically low 4.70-6.10 [facility] Comment on above: Performed By: #### C BC #### [facility] [address] [place] [address] Dr. Darien Mason WBC 11.1 103/ul Critically high 4.0-11.0 [facility] Comment on above: Performed By: #### C BC #### [facility] [address] [place] [address] Dr. Darien Mason CRPon 07-26-2022 CRP 5.6 mg/dL Critically high <=1.0 [facility] Comment on above: Performed By: #### B MP, CRP #### [facility] [address] [place] [address] Dr. Darien Mason PROF CHEM 8 (BAS METB)on Anion gap [Moles/Vol] 12.1 mmol/L Normal [facility] Comment on above: Performed By: #### B MP, CRP #### [facility] [address] [address] [address] Darien Mason Calcium [Mass/Vol] 8.9 mg/dL Normal 8.5-10.1 [facility] Comment on above: Performed By: #### B MP, CRP #### [facility] [address] [place] [address] Dr. Darien Mason Chloride [Moles/Vol] 102 mmol/L Normal 98-107 [facility] Comment on above: Performed By: #### B MP, CRP #### [facility] [address] [place] [address] Dr. Darien Mason CO2 [Moles/Vol] 28.0 mmol/L Normal 21.0-32.0 [facility] Comment on above: Performed By: #### B MP, CRP #### [facility] [address] [place] [address] Dr. Darien Mason Creatinine [Mass/Vol] 0.85 mg/dL Normal 0.70-1.30 [facility] Comment on above: Performed By: #### B MP, CRP #### [facility] [address] [place] [address] Dr. Darien Mason EGFR-AF SLOVENIAN >60 Normal >=60 [facility] Comment on above: Performed By: #### B MP, CRP #### [facility] [address] [place] [address] Dr. Darien Mason EGFR-NON AF SLOVENIAN >60 Normal >=60 [facility] Comment on above: Performed By: #### B MP, CRP #### [facility] [address] [place] [address] Dr. Darien Mason Glucose [Mass/Vol] 83 mg/dL Normal 74-106 [facility] Comment on above: Performed By: #### B MP, CRP #### [facility] [address] [place] [address] Dr. Darien Mason Potassium [Moles/Vol] 4.1 mmol/L Normal 3.5-5.1 [facility] Comment on above: Performed By: #### B MP, CRP #### [facility] [address] [address] [address] Darien Mason Sodium [Moles/Vol] 138 mmol/L Normal 136-145 [facility] Comment on above: Performed By: #### B MP, CRP #### [facility] [address] [address] [address] Darien Mason Urea nitrogen [Mass/Vol] 9.0 mg/dL Normal 7.0-18.0 [facility] Comment on above: Performed By: #### B MP, CRP #### [facility] [address] [address] [address] Darien Mason Urea nitrogen/Creatinine [Mass ratio] 10.6 mg/mg Normal [facility] Comment on above: Performed By: #### B MP, CRP #### [facility] [address] [address] [address] Darien Mason SED RATE [facility] 2022 SED RATE 86 mm/hr Critically high <=20 [facility] Comment on above: Performed By: #### S EDR #### [facility] [address] [address] [address] Darien Mason Patient Educationon 05-30-19 23 Patient Education Normal [facility] Provider Letteron 05-30-2022 Provider Letter (Inserted Image. Kay ble to display) May 30, 2022 WENDIE SORENSEN JR [address] [place] [address] WENDIE SORENSEN JR 1965 Dear Wendie, You missed your scheduled appointment on 05/30/2022 and the purpose of this letter is to inform you of our *No Show Policy*. Our appointment slots fill rapidly and when we have a no show appointment that time is lost. We could have used that time slot to care for a patient who needed to see one of our providers. Therefore, we ask that you call 24 hours in advance to cancel your appointment. After the fifth no show within that twelve (12) month period, you are subject to dismissal from the practice. This policy is in place so that we can meet the needs of all of our patients and we do appreciate your understanding. Sincerely, [facility] [address] [place] [address] [facility] Basophils Auto (Bld) [#/Vol] Ordered By: Thom Crabtree on 05-18-2022 Basophils (Bld) [#/Vol] 0.1 10*3/uL 0.0-0.2 [facility] Basophils/100 WBC Auto (Bld) Ordered By: Thom Crabtree on 05-18-2022 Basophils/100 WBC (Bld) 0.6 % . [facility] Bilirubin Test strip Ql (U)O rdered By: Thom Crabtree on 05-18-2022 Bilirubin Ql (U) Negative Negative [facility] Body fluid albumin measureme nt (mass/volume)Ordered By: Thom Crabtree on 05-18-2022 Albumin (Body fld) [Mass/Vol] 3.9 g/dL 3.2-5.5 [facility] Color Auto (U)Ordered By: Shiva Crabtree on 05-18-2022 Color (U) Yellow Yellow [facility] Creatinine and Glomerular fi ltration rate.predicted panel (S/P/Bld)Ordered By: Thom Crabtree on 05-18-2022 Creatinine [Mass/Vol] 0.93 mg/dL 0.64-1.27 [facility] Eosinophils Auto (Bld) [#/Vo l]Ordered By: Thom Crabtree on 05-18-2022 Eosinophils (Bld) [#/Vol] 0.1 10*3/uL 0.0-0.45 [facility] Eosinophils/100 WBC Auto (Bl d)Ordered By: Thom Crabtree on 05-18-2022 Eosinophils/100 WBC (Bld) 1.1 % . [facility] Erythrocyte distribution wid th Auto (RBC) [Ratio]Ordered By: Thom Crabtree on 05-18-2022 Erythrocyte distribution width (RBC) [Ratio] 15.8 % 12.0-14.8 [facility] Estimated glomerular filtrat ion rate (GFR) non- AmericanOrdered By: Thom Crabtree on 05-18-2022 GFR/1.73 sq M.predicted among non-blacks MDRD (S/P/Bld) [Vol rate/Area] > 60 mL/Min [facility] Globulin Calc (S) [Mass/Vol] Ordered By: Thom Crabtree on 05-18-2022 Globulin (S) [Mass/Vol] 3.8 g/dL [facility] Hematocrit Auto (Bld) [Volum e fraction]Ordered By: Thom Crabtree on 05-18-2022 Hematocrit (Bld) [Volume fraction] 40.5 % 38.8-50.0 [facility] Hemoglobin [Mass/volume] in BloodOrdered By: Thom Crabtree on 05-18-2022 Hemoglobin (Bld) [Mass/Vol] 13.4 g/dL 13.0-17.0 [facility] Ketones Auto test strip (U) [Mass/Vol]Ordered By: Thom Crabtree on 05-18-2022 Ketones (U) [Mass/Vol] Negative Negative Fi [facility] Leukocytes [#/volume] correc susan for nucleated erythrocytes in Blood by Automated counOrdered By: Thom Crabtree on 05-18-2022 WBC corrected for nucl RBC Auto (Bld) [#/Vol] 13.7 10*3/uL 4.1-10.5 [facility] Lymphocytes Auto (Bld) [#/Vo l]Ordered By: Thom Crabtree on 05-18-2022 Lymphocytes (Bld) [#/Vol] 2.0 10*3/uL 1.00-4.8 [facility] Lymphocytes/100 WBC Auto (Bl d)Ordered By: Thom Crabtree on 05-18-2022 Lymphocytes/100 WBC (Bld) 14.4 % . [facility] MCH Auto (RBC) [Entitic mass ]Ordered By: Thom Crabtree on 05-18-2022 MCH (RBC) [Entitic mass] 28.2 pg 27.5-35.2 [facility] MCHC Auto (RBC) [Mass/Vol]Or dered By: Thom Crabtree on 05-18-2022 MCHC (RBC) [Mass/Vol] 33.0 g/dL 32.5-35.6 [facility] MCV Auto (RBC) [Entitic vol] Ordered By: Thom Crabtree on 05-18-2022 MCV (RBC) [Entitic vol] 85.4 fL 83.5-101 [facility] Monocyte distribution width [Entitic volume] in Blood by AutomatedOrdered By: Thom Crabtree on 05-18-2022 Monocyte distribution width Auto (Bld) [Entitic vol] 18.29 % 0.00-20.00 [facility] Monocytes Auto (Bld) [#/Vol] Ordered By: Thom Crabtree on 05-18-2022 Monocytes (Bld) [#/Vol] 1.0 10*3/uL 0.0-0.8 [facility] Monocytes/100 WBC Auto (Bld) Ordered By: Thom Crabtree on 05-18-2022 Monocytes/100 WBC (Bld) 7.3 % . [facility] Neutrophils Auto (Bld) [#/Vo l]Ordered By: Thom Crabtree on 05-18-2022 Neutrophils (Bld) [#/Vol] 10.5 10*3/uL 1.8-7.7 [facility] Neutrophils/100 WBC Auto (Bl d)Ordered By: Thom Crabtree on 05-18-2022 Neutrophils/100 WBC (Bld) 76.6 % . [facility] Nitrite Test strip Ql (U)Ord ered By: Thom Crabtree on 05-18-2022 Nitrite Ql (U) Negative Negative [facility] No Panel InformationOrdered By: Thom Crabtree on 05-18-2022 Estimated GFR () > 60 mL/Min [facility] Comment on above: GFR estimated refere nce range: According to KDOQI guidelines, <60 ml/min/1.73m2 is sufficient to diagnose a patient with chronic kidney disease. Pharmacy Creatinine Clearance (Chem 116.23 [facility] Nucleated erythrocytes [Pres ence] in Blood by Automated countOrdered By: Thom Crabtree on 05-18-2022 Nucleated RBC Auto Ql (Bld) 0.1 /100{WBC} 0-0.5 [facility] Platelet mean volume Auto (B ld) [Entitic vol]Ordered By: Thom Crabtree on 05-18-2022 Platelet mean volume (Bld) [Entitic vol] 7.4 fL 6.6-10.1 [facility] Platelets Auto (Bld) [#/Vol] Ordered By: Thom Crabtree on 05-18-2022 Platelets (Bld) [#/Vol] 370 10*3/uL 150-450 [facility] Protein Auto test strip (U) [Mass/Vol]Ordered By: Thom Crabtree on 05-18-2022 Protein (U) [Mass/Vol] Negative Negative Fi [facility] Protein [Mass/volume] in Ser um or PlasmaOrdered By: Thom Crabtree on 05-18-2022 Protein [Mass/Vol] 7.7 g/dL 6.1-7.9 [facility] RBC Auto (Bld) [#/Vol]Ordere d By: Thom Crabtree on 05-18-2022 RBC (Bld) [#/Vol] 4.74 10*6/uL 3.90-5.60 [facility] Serum or plasma alanine shah otransferase measurement without P-5'-P (enzymatic activiOrdered By: Thom Crabtree on 05-18-2022 ALT No additional P-5'-P [Catalytic activity/Vol] 19 U/L 10-60 [facility] Serum or plasma albumin/glob ulin mass ratioOrdered By: Thom Crabtree on 05-18-2022 Albumin/Globulin [Mass ratio] 1.0 {ratio} [facility] Serum or plasma alkaline ric sphatase measurement (enzymatic activity/volume)Ordered By: Thom Crabtree on 05-18-2022 ALP [Catalytic activity/Vol] 95 U/L 32-92 [facility] Serum or plasma anion gap de terminationOrdered By: Thom Crabtree on 05-18-2022 Anion gap [Moles/Vol] 14.7 mmol/L 6.0-15.0 [facility] Serum or plasma aspartate am inotransferase measurement (enzymatic activity/volume)Ordered By: Thom Crabtree on 05-18-2022 AST [Catalytic activity/Vol] 20 U/L 10-42 [facility] Serum or plasma calcium ashley urement (mass/volume)Ordered By: Thom Crabtree on 05-18-2022 Calcium [Mass/Vol] 9.3 mg/dL 8.2-10.2 [facility] Serum or plasma chloride efraín surement (moles/volume)Ordered By: Thom Crabtree on 05-18-2022 Chloride [Moles/Vol] 100 mmol/L 95-114 [facility] Serum or plasma glucose ashley urement (mass/volume)Ordered By: Thom Crabtree on 05-18-2022 Glucose [Mass/Vol] 93 mg/dL 70-100 [facility] Comment on above: ADA recommended refe rence rangeRandom Glucose Reference Range is dependent on time and content of last meal. Glucose of more than 200 mg/dL in a nonstressed, ambulatory subject supports the diagnosis of Diabetes Mellitus. Serum or plasma potassium me asurement (moles/volume)Ordered By: Thom Crabtree on 05-18-2022 Potassium [Moles/Vol] 4.4 mmol/L 3.5-5.1 [facility] Serum or plasma sodium measu rement (moles/volume)Ordered By: Thom Crabtree on 05-18-2022 Sodium [Moles/Vol] 136 mmol/L 136-146 [facility] Serum or plasma total biliru bin measurement (mass/volume)Ordered By: Thom Crabtree on 05-18-2022 Bilirubin [Mass/Vol] 0.5 mg/dL 0.3-1.2 [facility] Serum or plasma total carbon dioxide measurement (moles/volume)Ordered By: Thom Crabtree on 05-18-2022 CO2 [Moles/Vol] 25.7 mmol/L 22.0-30.0 [facility] Serum or plasma urea nitroge n measurement (mass/volume)Ordered By: Thom Crabtree on 05-18-2022 Urea nitrogen [Mass/Vol] 12 mg/dL - [facility] Specific gravity Auto test s trip (U) [Rel density]Ordered By: Thom Crabtree on 05-18-2022 Specific gravity (U) [Rel density] 1.016 1.001-1.030 [facility] Urine clarity by refractomet ry automatedOrdered By: Thom Crabtree on 05-18-2022 Clarity Refractometry automated (U) Clear Clear [facility] Urine glucose measurement by automated test strip (mass/volume)Ordered By: Thom Crabtree on 05-18-2022 Glucose Auto test strip (U) [Mass/Vol] Normal mg/dL Normal [facility] Urine hemoglobin detection b y automated test stripOrdered By: Thom Crabtree on 05-18-2022 Hemoglobin Auto test strip Ql (U) Negative Negative [facility] Urine leukocyte esterase det ection by automated test stripOrdered By: Thom Crabtree on 05-18-2022 Leukocyte esterase Auto test strip Ql (U) Negative Negative [facility] Urobilinogen Auto test strip (U) [Mass/Vol]Ordered By: Thom Crabtree on 05-18-2022 Urobilinogen (U) [Mass/Vol] Normal mg/dL Normal [facility] WBC Auto (Bld) [#/Vol]Ordere d By: Thom Crabtree on 05-18-2022 WBC (Bld) [#/Vol] 13.7 10*3/uL 4.1-10.5 [facility] pH Auto test strip (U)Ordere d By: Thom Crabtree on 05-18-2022 pH (U) 5.5 [pH] 5.0-9.0 [facility] Ambulatory Visit Summaryon 1 06-02-2021 Ambulatory Visit Summary WENDIE SORENSEN JR :1965 Visit Date:04/02/2022 Ambulatory Visit Instructions Your Diagnosis Urinary frequency Erectile dysfunction Incomplete bladder emptying Prostate cancer screening Tests Performed Urnls Dip Stick Auto w/o Microscopy POC 211[address] Your Care Team Attending Physician - ANNABELLE SIMON, SARAH Ford Primary Care Physician - KRANTHI MCPHERSON MD This Is Your Medications List Contact prescribing physician if questions or concerns atorvastatin (atorvastatin 40 mg Tab) lisinopril (lisinopril 20 mg Tab) metoprolol (metoprolol 50 mg ER Tab) multivitamin (Multi Vitamins oral tablet) Procedures Performed Back (12/22/2018). Discharge Vitals Heart Rate (Peripheral) 68 Blood Pressure 122/80 Height 177 cm Height 70 in Weight 113 kg Weight 248.6 lb BMI 36.07 What to do next Scheduled Follow-Up Appointments 2022 11:15 AM EST With: SARAH ALANIS PA-C Where: [facility] Patient Educationon 04-02-20 Patient Education Urology Erectile Dysfunction Erectile dysfunction (ED) is the inability to get or keep an erection in order to have sexual intercourse. Erectile dysfunction may include: ? Inability to get an erection. ? Lack of enough hardness of the erection to allow penetration. ? Loss of the erection before sex is finished. What are the causes? This condition may be caused by: ? Certain medicines, such as: ? Pain relievers. ? Antihistamines. ? Antidepressants. ? Blood pressure medicines. ? Water pills (diuretics). ? Ulcer medicines. ? Muscle relaxants. ? Drugs. ? Excessive drinking. ? Psychological causes, such as: ? Anxiety. ? Depression. ? Sadness. ? Exhaustion. ? Performance fear. ? Stress. ? Physical causes, such as: ? Artery problems. This may include diabetes, smoking, liver disease, or atherosclerosis. ? High blood pressure. ? Hormonal problems, such as low testosterone. ? Obesity. ? Nerve problems. This may include back or pelvic injuries, diabetes mellitus, multiple sclerosis, or Parkinson disease. What are the signs or symptoms? Symptoms of this condition include: ? Inability to get an erection. ? Lack of enough hardness of the erection to allow penetration. ? Loss of the erection before sex is finished. ? Normal erections at some times, but with frequent unsatisfactory episodes. ? Low sexual satisfaction in either partner due to erection problems. ? A curved penis occurring with erection. The curve may cause pain or the penis may be too curved to allow for intercourse. ? Never having nighttime erections. How is this diagnosed? This condition is often diagnosed by: ? Performing a physical exam to find other diseases or specific problems with the penis. ? Asking you detailed questions about the problem. ? Performing blood tests to check for diabetes mellitus or to measure hormone levels. ? Performing other tests to check for underlying health conditions. ? Performing an ultrasound exam to check for scarring. ? Performing a test to check blood flow to the penis. ? Doing a sleep study at home to measure nighttime erections. How is this treated? This condition may be treated by: ? Medicine taken by mouth to help you achieve an erection (oral medicine). ? Hormone replacement therapy to replace low testosterone levels. ? Medicine that is injected into the penis. Your health care provider may instruct you how to give yourself these injections at home. ? Vacuum pump. This is a pump with a ring on it. The pump and ring are placed on the penis and used to create pressure that helps the penis become erect. ? Penile implant surgery. In this procedure, you may receive: ? An inflatable implant. This consists of cylinders, a pump, and a reservoir. The cylinders can be inflated with a fluid that helps to create an erection, and they can be deflated after intercourse. ? A semi-rigid implant. This consists of two silicone rubber rods. The rods provide some rigidity. They are also flexible, so the penis can both curve downward in its normal position and become straight for sexual intercourse. ? Blood vessel surgery, to improve blood flow to the penis. During this procedure, a blood vessel from a different part of the body is placed into the penis to allow blood to flow around (bypass) damaged or blocked blood vessels. ? Lifestyle changes, such as exercising more, losing weight, and quitting smoking. Follow these instructions at home: Medicines ? Take [id number] and prescription medicines only as told by your health care provider. Do not increase the dosage without first discussing it with your health care provider. ? If you are using self-injections, perform injections as directed by your health care provider. Make sure to avoid any veins that are on the surface of the penis. After giving an injection, apply pressure to the injection site for 5 minutes. General instructions ? Exercise regularly, as directed by your health care provider. Work with your health care provider to lose weight, if needed. ? Do not use any products that contain nicotine or tobacco, such as cigarettes and e-cigarettes. If you need help quitting, ask your health care provider. ? Before using a vacuum pump, read the instructions that come with the pump and discuss any questions with your health care provider. ? Keep all follow-up visits as told by your health care provider. This is important. Contact a health care provider if: ? You feel nauseous. ? You vomit. Get help right away if: ? You are taking oral or injectable medicines and you have an erection that lasts longer than 4 hours. If your health care provider is unavailable, go to the nearest emergency room for evaluation. An erection that lasts much longer than 4 hours can result in permanent damage to your penis. ? You have severe pain in your groin or abdomen. ? You develop redness or severe swelling of your (more content not included)... Normal [facility] Urology Office/Clinic Noteon 04-02-2022 Urology Office/Clinic Note Chief Complaint Pt is here for worsening urinary symptoms HPI Staff Wendie is a 57 y.o. male former [facility] pt here for worsening urinary symptoms and ED. Previous Dx: BPH w/ urinary obstruction, hesitancy, kidney stone, neurogenic bladder, nocturia, weak urine stream. S/P cystoscopy done on 05/26/19. Current PSA 0.600 done on 01/24/22. Dysuria: denies Incomplete bladder emptying: denies Hematuria: denies Frequency: yes Urgency: denies Nocturia: 5-6x a night Stream: steady stream Leaking: pt states he feels like he is leaking but checks and there is nothing Post void dripping: mild Wearing pads/ Depends: denies Urge incontinence: denies Stress incontinence: denies Incontinence without Sensory Awareness: denies Abdominal pain: denies Flank pain: denies Sexual complaints: non existent penis, no erections History of Present Illness staff HPI reviewed and agree. Review of Systems PHQ Score Initial Depression Screen Score: 0 no fever, chills, malaise, myalgia. no rash/lesions. no chest pain, palpitations, or SOB. no abdominal pain, nausea, vomiting. no unilateral calf swelling, redness, pain Physical Exam Vitals & Measurements HR: 68(Peripheral) BP: 122/80 HT: 70 in HT: 177 cm WT: 113 kg WT: 248.6 lb BMI: 36.07 General: nontoxic, NAD Mouth: moist mucosa Lungs: normal respiratory effort Cardio: regular rate, good distal perfusion Abdomen: nondistended, no suprapubic distention or tenderness, no CVA tenderness Skin: No rashes or suspicious lesions Assessment/Plan pt had major spine issues in 2019. was unable to walk. had debilitating pain. underwent surgery with good results - pain is markedly improved. however he has neuropathy which continues today. difficulty walking - uses cane. decreased sensation from the waist down. is working with neuro and PT. urinary issues started when the spine issues started. worsened after surgery. have been improving slowly over the past few years. UA completed in office today shows no microhematuria or signs of infection. 1. Urinary frequency (R35.0: Frequency of micturition) denies straining, hesitancy, intermittency. has good flow. cysto May 2019 - The Prostatic Urethra is: Unobstructed, wide open bladder neck. lax external sphincter. uros May 2019 - multiple episodes of incontinence without sensory awareness. elevated PVR. pt's biggest complaint is nocturia x5-10. sometimes large volume, other times just a dribble. daytime frequency varies, can go 2-3 hrs holding it, other times goes q30 mins. but daytime sx aren't bothersome. denies urgency. denies urinary incontinence (this is markedly improved from when he was last seen here and was wearing multiple pads per day). pt given bladder irritant list to avoid in evening. will start oxybutynin qhs. will need to keep close eye on his PVR. side effects discussed. Ordered: E&M of Est. Patient Moderate 30-39 Min 02693 2. Erectile dysfunction (N52.9: Male erectile dysfunction, unspecified) reports penile shrinkage it's nearly non-existent. admits to 50-70# weight gain over the past few years since all the issues started w his back. recommended aggressive weight loss program w PCP. penile length should return with weight loss. also reports no erections. not even at night. however says with current lack of length, even if erect he wouldn't be able to have intercourse. pt will focus on weight loss first, then we can address ED more specifically. Ordered: E&M of Est. Patient Moderate 30-39 Min 33676 3. Incomplete bladder emptying (R33.9: Retention of urine, unspecified) PVR >350ml in office 2018. PVR 178ml uros May 2019. PVR today 146ml. discussed risks of retention. will need to monitor closely as we are starting anticholinergic for nocturia. PVR next visit. Ordered: E&M of Est. Patient Moderate 30-39 Min 45119 4. Prostate cancer screening (Z12.5: Encounter for screening for malignant neoplasm of prostate) Current PSA 0.600 done on 01/24/22. Ordered: E&M of Est. Patient Moderate 30-39 Min 72869 5. Fecal incontinence (R15.9: Full incontinence of feces) recommended he discuss w PCP. may need increased fiber or bulking agents. may need GI referral. Orders: oxybutynin, = 1 tab(s), Oral, Bedtime, # 30 tab(s), Refills(s) 11, called to pharmacy (Rx), 177, cm, 04/02/22 10:20:00 EST, Height/Length Dosing, 113, kg, 04/02/22 10:20:00 EST, Weight Dosing Urnls Dip Stick Auto w/o Microscopy POC 45572 f/u 6 weeks Follow-up With When Contact Information SARAH ALANIS PA-C, URL Within 6 weeks [address] [facility] [place] [address] [facility] (1) Additional Instructions: Patient Education Erectile Dysfunction Problem List/Past Medical History Ongoing Erectile dysfunction Fecal incontinence Hesitancy Incomplete bladder emptying Kidney stone Neurogenic bladder Nocturia Prostate cancer screening Urinary frequency Weak urine stream Historical BPH with urinar (more content not included)... Normal [facility] Comment on above: Result Comment: Elec tronically Signed By: SARAH ALANIS PA-C\.br\Date and Time Signed: 04/02/22 11:27 EST Albumin [Mass/volume] in Ser um or PlasmaOrdered By: Rebecca Workman on 2022 Albumin [Mass/Vol] 3.7 g/dL 3.2-5.5 [facility] Basophils Auto (Bld) [#/Vol] Ordered By: Rebecca Workman on 2022 Basophils (Bld) [#/Vol] 0.0 10*3/uL 0.0-0.2 [facility] Basophils/100 WBC Auto (Bld) Ordered By: Rebecca Workman on 2022 Basophils/100 WBC (Bld) 0.5 % . [facility] Blood hemoglobin measurement (mass/volume)Ordered By: Rebecca Workman on 2022 Hemoglobin (Bld) [Mass/Vol] 13.4 g/dL 13.0-17.0 [facility] Blood leukocytes automated c ount (number/volume)Ordered By: Rebecca Rosales on 2022 WBC (Bld) [#/Vol] 8.5 10*3/uL 4.5-11.0 [facility] Cholesterol [Mass/volume] in Serum or PlasmaOrdered By: Rebecca Workman on 2022 Cholesterol [Mass/Vol] 151 mg/dL 140-200 [facility] Comment on above: Chol less than 200 m g/dl low risk Chol 201-239 mg/dl borderline risk Chol 240 mg/dl and greater high risk Chol less than 200 m g/dl low riskChol 201-239 mg/dl borderline riskChol 240 mg/dl and greater high risk Cholesterol in LDL Calc [Mas s/Vol]Ordered By: Rebecca Workman on 2022 Cholesterol in LDL [Mass/Vol] 89 mg/dL 0-100 [facility] Comment on above: LDL ATP III CLASSIFI CATION LDL less than 100 mg/dL Optimal LDL 100-129 mg/dL Near or above optimal LDL 130-159 mg/dL Borderline high LDL 160-189 mg/dL High LDL greater than 189 mg/dL Very high LDL ATP III CLASSIFI CATIONLDL less than 100 mg/dL OptimalLDL 100-129 mg/dL Near or above optimalLDL 130-159 mg/dL Borderline highLDL 160-189 mg/dL HighLDL greater than 189 mg/dL Very high Cholesterol in VLDL Calc [Ma ss/Vol]Ordered By: Rebecca Workman on 2022 Cholesterol in VLDL [Mass/Vol] 27 mg/dL [facility] Creatinine and Glomerular fi ltration rate.predicted panel (S/P/Bld)Ordered By: Rebecca Workman on 2022 Creatinine [Mass/Vol] 0.94 mg/dL 0.64-1.27 [facility] Eosinophils Auto (Bld) [#/Vo l]Ordered By: Rebecca Workman on 2022 Eosinophils (Bld) [#/Vol] 0.2 10*3/uL 0.0-0.45 [facility] Eosinophils/100 WBC Auto (Bl d)Ordered By: Rebecca Workman on 2022 Eosinophils/100 WBC (Bld) 2.9 % . [facility] Erythrocyte distribution wid th Auto (RBC) [Ratio]Ordered By: Rebecca Rosales on 2022 Erythrocyte distribution width (RBC) [Ratio] 15.5 % 12.0-14.8 [facility] Estimated glomerular filtrat ion rate (GFR) non- AmericanOrdered By: Rebecca Workman on 2022 GFR/1.73 sq M.predicted among non-blacks MDRD (S/P/Bld) [Vol rate/Area] > 60 mL/Min [facility] Globulin Calc (S) [Mass/Vol] Ordered By: Rebecca Workman on 2022 Globulin (S) [Mass/Vol] 3.0 g/dL [facility] Glucose mean value [Mass/vol ume] in Blood Estimated from glycated hemoglobinOrdered By: Rebecca Workman on 2022 Average glucose Estimated from glycated hemoglobin (Bld) [Mass/Vol] 114 mg/dL [facility] Hematocrit Auto (Bld) [Volum e fraction]Ordered By: Rebecca Workman on 2022 Hematocrit (Bld) [Volume fraction] 40.6 % 38.8-50.0 [facility] Hemoglobin A1c percentageOrd ered By: Rebecca Workman on 2022 HbA1c (Bld) [Mass fraction] 5.6 % 4.3-5.6 [facility] Comment on above: Increased risk for d iabetes: 5.7 - 6.4 diabetes: >6.4 glycemic control for adults with diabetes: <7.0 Increased risk for d iabetes: 5.7 - 6.4diabetes: >6.4glycemic control for adults with diabetes: <7.0 Laboratory - Hematology and Cell countsOrdered By: Rebecca Workman on 2022 Nucleated RBC/100 WBC (Bld) [Ratio] 0.0 % 0-0.5 [facility] Lymphocytes Auto (Bld) [#/Vo l]Ordered By: Rebecca Workman on 2022 Lymphocytes (Bld) [#/Vol] 2.0 10*3/uL 1.00-4.8 [facility] Lymphocytes/100 WBC Auto (Bl d)Ordered By: Rebecca Workman on 2022 Lymphocytes/100 WBC (Bld) 24.2 % . [facility] MCH Auto (RBC) [Entitic mass ]Ordered By: Rebecca Workman on 2022 MCH (RBC) [Entitic mass] 28.5 pg 27.5-35.2 [facility] MCHC Auto (RBC) [Mass/Vol]Or dered By: Rebecca Workman on 2022 MCHC (RBC) [Mass/Vol] 32.9 g/dL 32.5-35.6 [facility] MCV Auto (RBC) [Entitic vol] Ordered By: Rebecca Workman on 2022 MCV (RBC) [Entitic vol] 86.8 fL 83.5-101 [facility] Monocytes Auto (Bld) [#/Vol] Ordered By: Rebecca Workman on 2022 Monocytes (Bld) [#/Vol] 0.7 10*3/uL 0.0-0.8 [facility] Monocytes/100 WBC Auto (Bld) Ordered By: Rebecca Workman on 2022 Monocytes/100 WBC (Bld) 8.2 % . [facility] Neutrophils Auto (Bld) [#/Vo l]Ordered By: Rebecca Workman on 2022 Neutrophils (Bld) [#/Vol] 5.4 10*3/uL 1.8-7.7 [facility] Neutrophils/100 WBC Auto (Bl d)Ordered By: Rebecca Workman on 2022 Neutrophils/100 WBC (Bld) 64.2 % . [facility] No Panel InformationOrdered By: Rebecca Workman on 2022 Estimated GFR () > 60 mL/Min [facility] Comment on above: GFR estimated refere nce range: According to KDOQI guidelines, <60 ml/min/1.73m2 is sufficient to diagnose a patient with chronic kidney disease. Pharmacy Creatinine Clearance (Chem N/A [facility] Prostate Specific Antigen Screen 0.600 ng/mL 0.000-4.000 [facility] Platelet mean volume Auto (B ld) [Entitic vol]Ordered By: Rebecca Workman on 2022 Platelet mean volume (Bld) [Entitic vol] 7.6 fL 6.6-10.1 [facility] Platelets Auto (Bld) [#/Vol] Ordered By: Rebecca Workman on 2022 Platelets (Bld) [#/Vol] 296 10*3/uL 150-450 [facility] Protein [Mass/volume] in Ser um or PlasmaOrdered By: Rebecca Workman on 2022 Protein [Mass/Vol] 6.7 g/dL 6.1-7.9 [facility] RBC Auto (Bld) [#/Vol]Ordere d By: Rebecca Workman on 2022 RBC (Bld) [#/Vol] 4.68 10*6/uL 3.90-5.60 [facility] Serum or plasma alanine shah otransferase measurement without P-5'-P (enzymatic activiOrdered By: Rebecca Workman on 2022 ALT No additional P-5'-P [Catalytic activity/Vol] 22 U/L 10-60 [facility] Serum or plasma albumin/glob ulin mass ratioOrdered By: Rebecca Workman on 2022 Albumin/Globulin [Mass ratio] 1.2 {ratio} [facility] Serum or plasma alkaline ric sphatase measurement (enzymatic activity/volume)Ordered By: Rebecca Workman on 2022 ALP [Catalytic activity/Vol] 103 U/L 32-92 [facility] Serum or plasma anion gap de terminationOrdered By: Rebecca Workman on 2022 Anion gap [Moles/Vol] 12.1 mmol/L 6.0-15.0 [facility] Serum or plasma aspartate am inotransferase measurement (enzymatic activity/volume)Ordered By: Rebecca Workman on 2022 AST [Catalytic activity/Vol] 18 U/L 10-42 [facility] Serum or plasma calcium ashley urement (mass/volume)Ordered By: Rebecca Rosales on 2022 Calcium [Mass/Vol] 9.5 mg/dL 8.2-10.2 [facility] Serum or plasma chloride efraín surement (moles/volume)Ordered By: Rebecca Workman on 2022 Chloride [Moles/Vol] 102 mmol/L 95-114 [facility] Serum or plasma glucose ashley urement (mass/volume)Ordered By: Rebecca Rosales on 2022 Glucose [Mass/Vol] 90 mg/dL 70-100 [facility] Comment on above: ADA recommended refe rence range Random Glucose Reference Range is dependent on time and content of last meal. Glucose of more than 200 mg/dL in a nonstressed, ambulatory subject supports the diagnosis of Diabetes Mellitus. ADA recommended refe rence rangeRandom Glucose Reference Range is dependent on time and content of last meal. Glucose of more than 200 mg/dL in a nonstressed, ambulatory subject supports the diagnosis of Diabetes Mellitus. Serum or plasma high density lipoprotein (HDL) cholesterol measurementOrdered By: Rebecca Workman on 2022 Cholesterol in HDL [Mass/Vol] 34 mg/dL 29-71 [facility] Comment on above: HDL CHOL ATP-III CLA SSIFICATION Cardiovascular Risk HDL > or equal to 60 mg/dL LOW HDL < 40 mg/dL HIGH HDL CHOL ATP-III CLA SSIFICATION Cardiovascular RiskHDL > or equal to 60 mg/dL LOWHDL < 40 mg/dL HIGH Serum or plasma potassium me asurement (moles/volume)Ordered By: Rebecca Workman on 2022 Potassium [Moles/Vol] 4.5 mmol/L 3.5-5.1 [facility] Serum or plasma sodium measu rement (moles/volume)Ordered By: Rebecca Rosales on 2022 Sodium [Moles/Vol] 134 mmol/L 136-146 [facility] Serum or plasma total biliru bin measurement (mass/volume)Ordered By: Rebecca Workman on 2022 Bilirubin [Mass/Vol] 0.7 mg/dL 0.3-1.2 [facility] Serum or plasma total carbon dioxide measurement (moles/volume)Ordered By: Rebecca Workman on 2022 CO2 [Moles/Vol] 24.4 mmol/L 22.0-30.0 [facility] Serum or plasma total choles terol/high density lipoprotein (HDL) cholesterol mass ratOrdered By: Rebecca Workman on 2022 Cholesterol.total/Chol esterol in HDL [Mass ratio] 4.4 {ratio} <5.0 [facility] Serum or plasma urea nitroge n measurement (mass/volume)Ordered By: Rebecca Workman on 2022 Urea nitrogen [Mass/Vol] 11 mg/dL 9- [facility] TSH DL <= 0.005 mIU/L QnOrde red By: Rebecca Workman on 2022 TSH Qn 2.95 m[IU]/L 0.45-5.33 [facility] Triglyceride [Mass/volume] i n Serum or PlasmaOrdered By: Rebecca Workman on 2022 Triglyceride [Mass/Vol] 139 mg/dL 35-149 [facility] Comment on above: TRIG ATP III CLASSIF ICATION TRIG less than 150 mg/dL Normal TRIG 150-199 mg/dL Borderline high TRIG 200-500 mg/dL High TRIG greater than 500 mg/dL Very high Standard traceable to the Center for Disease Conrtrol and Prevention (CDC) test method. TRIG ATP III CLASSIF ICATIONTRIG less than 150 mg/dL NormalTRIG 150-199 mg/dL Borderline highTRIG 200-500 mg/dL High TRIG greater than 500 mg/dL Very highStandard traceable to the Center for Disease Conrtrol and Prevention (CDC) test method. GLYCO HEMOon 01-26-2021 HbA1c (Bld) [Mass fraction] 5.4 % Normal [facility] Comment on above: Result Comment: Gaby mandujano Diagnosis HbA1c (%) --------- Diabetic > 6.4 Prediabetes 5.7-6.4 Normal < 5.7 Performed By: #### L 500.88203 #### Test performed at: [place] [id number] B12on 2021 Cobalamin (Vitamin B12) [Mass/Vol] 649 pg/mL Normal 193-986 [facility] Comment on above: Order Comment: Is mary ellen hay fasting? NO Performed By: #### L 500.04692, L500.85797, L500.51109, L500.59404, L500.32050, L500.81187 #### Test performed at: [address] [address] CBCon 2021 Erythrocyte distribution width (RBC) [Ratio] 14.1 % Normal 11.5-14.5 [facility] Comment on above: Performed By: #### L 200.48338 #### Test performed at: [address], [place] [address] Hematocrit (Bld) [Volume fraction] 43.9 % Normal 39.0-55.0 [facility] Comment on above: Performed By: #### L 200.36537 #### Test performed at: [address] [address] Hemoglobin (Bld) [Mass/Vol] 14.4 g/dL Normal 14.0-16.5 [facility] Comment on above: Performed By: #### L 200.85074 #### Test performed at: [address] [address] MCH (RBC) [Entitic mass] 28.7 pg Normal 25.4-34.6 [facility] Comment on above: Performed By: #### L 200.72003 #### Test performed at: [address] [address] MCHC (RBC) [Mass/Vol] 32.8 g/dL Normal 31.5-36.5 [facility] Comment on above: Performed By: #### L 200.43416 #### Test performed at: [address] [address] MCV (RBC) [Entitic vol] 87.6 fL Normal 80.0-100.0 [facility] Comment on above: Performed By: #### L 200.98542 #### Test performed at: [address] [address] NRBC # 0.000 K/uL Normal 0-0.012 [facility] Comment on above: Performed By: #### L 200.32446 #### Test performed at: [address] [address] NRBC % 0.0 /100 WBC Normal 0-0.2 [facility] Comment on above: Performed By: #### L 200.00123 #### Test performed at: [address] [address] Platelet mean volume (Bld) [Entitic vol] 9.9 fL Normal 8.7-12.4 [facility] Comment on above: Performed By: #### L 200.65231 #### Test performed at: [address] [address] Platelets (Bld) [#/Vol] 303 10*3/uL Normal 140-440 [facility] Comment on above: Performed By: #### L 200.08165 #### Test performed at: [address] [address] RBC (Bld) [#/Vol] 5.01 10*6/uL Normal 3.5-5.5 [facility] Comment on above: Performed By: #### L 200.45143 #### Test performed at: [address] [address] WBC (Bld) [#/Vol] 9.6 10*3/uL Normal 3.9-11.0 [facility] Comment on above: Performed By: #### L 200.65802 #### Test performed at: [address] [address] COMP META PANELon 2021 Albumin [Mass/Vol] 4.0 g/dL Normal 3.4-5.0 [facility] Comment on above: Order Comment: Is pa tient fasting? NO Performed By: #### L 500.72683, L500.59535, L500.20258, L500.10359, L500.14836, L500.96153 #### Test performed at: [address] [address] ALK PHOS TOTAL 116 U/L Normal 45-117 [facility] Comment on above: Order Comment: Is pa tient fasting? NO Performed By: #### L 500.80336, L500.87703, L500.97522, L500.21152, L500.27005, L500.99275 #### Test performed at: [address] [address] ALT [Catalytic activity/Vol] 28 U/L Normal 13-61 [facility] Comment on above: Order Comment: Is pa tient fasting? NO Performed By: #### L 500.31357, L500.58699, L500.64342, L500.90282, L500.41071, L500.38538 #### Test performed at: [address] [address] AST [Catalytic activity/Vol] 23 U/L Normal 15-37 [facility] Comment on above: Order Comment: Is pa tient fasting? NO Performed By: #### L 500.62257, L500.22940, L500.17601, L500.40566, L500.95922, L500.47311 #### Test performed at: [address] [address] BILI TOTAL 0.6 mg/dL Normal 0.2-1.0 [facility] Comment on above: Order Comment: Is pa tient fasting? NO Performed By: #### L 500.04856, L500.48962, L500.78537, L500.63078, L500.19783, L500.43605 #### Test performed at: [address] [address] Calcium [Mass/Vol] 8.7 mg/dL Normal 8.5-10.1 [facility] Comment on above: Order Comment: Is pa tient fasting? NO Performed By: #### L 500.10334, L500.99069, L500.55060, L500.32553, L500.08416, L500.37191 #### Test performed at: [address] [address] Chloride [Moles/Vol] 106 mmol/L Normal 98-107 [facility] Comment on above: Order Comment: Is pa tient fasting? NO Performed By: #### L 500.51753, L500.54986, L500.54711, L500.33634, L500.15747, L500.89172 #### Test performed at: [address] [address] CO2 [Moles/Vol] 24 mmol/L Normal 21-32 [facility] Comment on above: Order Comment: Is pa tient fasting? NO Performed By: #### L 500.65886, L500.01258, L500.53313, L500.67956, L500.79381, L500.54836 #### Test performed at: [address] [address] Creatinine [Mass/Vol] 0.894 mg/dL Normal 0.700-1.300 [facility] Comment on above: Order Comment: Is pa tient fasting? NO Performed By: #### L 500.36249, L500.44118, L500.22066, L500.77622, L500.27602, L500.04891 #### Test performed at: [address] [address] Glucose [Mass/Vol] 85 mg/dL Normal 70-99 [facility] Comment on above: Order Comment: Is pa tient fasting? NO Result Comment: Fast ing GLUCOSE reference range has been updated per (ADA) [employer]'s recommendation. 08/04/2018 Performed By: #### L 500.05114, L500.68056, L500.80947, L500.25033, L500.57409, L500.44205 #### Test performed at: [address] [address] Potassium [Moles/Vol] 4.4 mmol/L Normal 3.5-5.1 [facility] Comment on above: Order Comment: Is pa tient fasting? NO Performed By: #### L 500.06747, L500.85356, L500.89912, L500.16686, L500.44366, L500.46750 #### Test performed at: [address] [address] Protein [Mass/Vol] 7.8 g/dL Normal 6.4-8.2 [facility] Comment on above: Order Comment: Is pa tient fasting? NO Performed By: #### L 500.27513, L500.93421, L500.00022, L500.21951, L500.00213, L500.83677 #### Test performed at: [address] [address] Sodium [Moles/Vol] 136 mmol/L Normal 136-145 [facility] Comment on above: Order Comment: Is pa tient fasting? NO Performed By: #### L 500.15732, L500.00942, L500.96542, L500.78379, L500.30811, L500.82656 #### Test performed at: [address] [address] Urea nitrogen [Mass/Vol] 10 mg/dL Normal 7-18 [facility] Comment on above: Order Comment: Is pa tient fasting? NO Performed By: #### L 500.99283, L500.76381, L500.84996, L500.33076, L500.96585, L500.77716 #### Test performed at: [address] [address] GFR ESTIMATEon 2021 IF AMER > 60 Normal > 60 [facility] Comment on above: Order Comment: Is pa tient fasting? NO Result Comment: eGFR (Estimated GFR) Units of measure:mL/min/1.73 meters sq. *CALCULATION REVISED 02/28/2015;IDMS-traceable MDRD equation eGFR is derived from the reexpressed MDRD Study equation using the following parameters: serum creatinine, age, gender and race. An eGFR<60 mL/min/1.73m2 for >3 months is consistent with chronic kidney disease. Refer to KDOQI guidelines for clinical interpretation. Performed By: #### L 500.70994, L500.64556, L500.09835, L500.68466, L500.33089, L500.90416 #### Test performed at: [address] [address] IF non-AFR AMER > 60 Normal > 60 [facility] Comment on above: Order Comment: Is pa tient fasting? NO Performed By: #### L 500.49113, L500.04810, L500.89170, L500.58664, L500.05967, L500.98911 #### Test performed at: [address] [address] LIPID PROFILEon 2021 Cholesterol [Mass/Vol] 186 mg/dL Normal <200 [facility] Comment on above: Order Comment: Is pa tient fasting? NO Result Comment: <200 mg/dL (Desirable) 200-240 mg/dL (Borderline) >240 mg/dL (High Risk) Performed By: #### L 500.94650, L500.17809, L500.10988, L500.89917, L500.72101, L500.60654 #### Test performed at: [address] [address] Cholesterol in HDL [Mass/Vol] 39 mg/dL Low 40-60 [facility] Comment on above: Order Comment: Is pa tient fasting? NO Performed By: #### L 500.24160, L500.39057, L500.94369, L500.81473, L500.53654, L500.83183 #### Test performed at: [address] [address] Cholesterol in LDL [Mass/Vol] 108 mg/dL Normal 60-130 [facility] Comment on above: Order Comment: Is pa tient fasting? NO Performed By: #### L 500.31350, L500.27978, L500.58847, L500.59007, L500.25459, L500.65365 #### Test performed at: [address] [address] Triglyceride [Mass/Vol] 241 mg/dL High <150 [facility] Comment on above: Order Comment: Is pa tient fasting? NO Result Comment: <150 mg/dL (Normal) 150-199 mg/dL (Borderline) 200-499 mg/dL (High) >500 mg/dL (Very High) Performed By: #### L 500.50149, L500.93906, L500.01319, L500.03677, L500.92563, L500.72917 #### Test performed at: [address] [address] PROS SPEC AGon 2021 PROS SPEC AG 0.712 ng/mL Normal 0-4.0 [facility] Comment on above: Order Comment: Is pa tient fasting? NO Performed By: #### L 500.78417, L500.80321, L500.61997, L500.92517, L500.60434, L500.15055 #### Test performed at: [address] [address] TSH ULTRA SENSon 2021 TSH ULTRA SENS 2.770 uIU/mL Normal 0.358-3.74 [facility] Comment on above: Order Comment: Is pa tient fasting? NO Performed By: #### L 500.11106, L500.93705, L500.51015, L500.45395, L500.00730, L500.43720 #### Test performed at: [place] [address] LUMB SP COMP W FLEX/EXT 6 VW Son 02-22-2020 LUMB SP COMP W FLEX/EXT 6 VWS STUDY: LUMB SP COMP W FLEX/EXT 6 VWS ; 02/22/2020 9:06 am INDICATION: PAIN. COMPARISON: None. ACCESSION NUMBER(S): [id number] ORDERING CLINICIAN: Kranthi Mcpherson FINDINGS: No fracture or subluxation of the lumbar spine. Mild disc height loss at L4-5. Scattered small endplate osteophytes. Multilevel facet arthropathy. 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 No spondylolisthesis. No spondylolysis. No instability on flexion or extension. IMPRESSION: Degenerative changes of the lumbar spine without instability. Normal [facility] CNOVon 12-07-2018 CNOV Office Visit (PAINCR ) ----- WENDIE SORENSEN ([id number]) 1965 M Date Time Provider Department 12/07/18 11:00 AM VALENTIN MART During your visit today, we recorded the following information about you: Pulse Respiration Blood pressure Weight 77/minute 16/minute 159/90 115.7 kg Height 1.778 m Valentin Mart MD 12/07/2018 11:28 AM Signed Follow up Visit Patient Name: Wendie Sorensen MR #: [id number] Age: [age] year old Date: December 07, 2018 Referred by: Dr. Wright Patient was last seen on November 24, 2018 for the diagnosis of Low back pain with bilateral sciatica Bilateral lower extremity weakness and sensory changes Bowel and bladder changes need to rule out cauda equina syndrome The following plan of care was recommended Patient's records are not available to review he would be signing a release form so that his previous records. I would order an x-ray of the lumbar spine today for an evaluation Order an MRI of the lumbar spine to evaluate for possible pressure on the Cauda Equina that may require urgent surgical intervention Sending him for some PT to help strengthening his back and his lower extremity I'll put on on Prednisone 40 mg to be decreased gradually over the next 2 weeks Once he finishes the Prednisone will start on Motrin 800 mg 3 times a day I'll put him on Percocet 09/11/24 one by mouth 3 times a day when necessary for the acute episode he will get 21 tablet for 7 days with no refills Start him on Zanaflex 4 mg one by mouth 3 times a day He would be using heat and ice as needed With see the results of the MRI and if he is not a surgical candidate discuss if any intervention would be appropriate Was there relief from this treatment? Yes. Did not start Gabapentin or Zanaflex. However, patient has improved. Has been taking a bath in Epsom salt. Has some urinary incontinence and some constipation How long did the patient get relief from this treatment? Current improvement What percentage of pain did the patient feel was relieved with this treatment? some MRI done See result Xray Counting reference: Lumbosacral junction. For the purposes of this report, L4-5 is considered the level of the iliac crest and there are 5 lumbar-type vertebrae. Anatomic Variants: None. Alignment is normal. Moderate degenerative disc disease at L3-4 and L4-5. Degenerative facet changes in the lower lumbar spine. No fractures. Incidental note of moderate right hip osteoarthritis. No other significant abnormality Treatment agreement on file: No Last toxicology screen done:N/A This Episode: Pattern: Constant. Character: Dull, Aching and burning,numbness. Severity: VAS Pain: 10/10 Current Location: low back Radiation: radiating to bilateral legs and feet. Associated Signs/Symptoms: Decreased social activity and Sleep disturbance; awakens during night due to pain and difficulty falling asleep. Sensory/Motor Changes: Numbness or Weakness. Changes in Bowel/Bladder Control?: No. Number of hours of sleep per night: poor Is sleep interrupted by pain? Yes. Patient feels safe at home: Yes Allergies: ALLERGIES No Known Allergies Current Outpatient Medications: HYDROcodone-acetaminophen (NORCO) 5-325 mg per tablet Take 5-325 tablets by mouth. predniSONE (DELTASONE) 5 mg tablet Take 5 mg by mouth. ibuprofen (MOTRIN) 800 mg tablet Take 1 tablet by mouth every 8 hours as needed. gabapentin (NEURONTIN) 600 mg tablet Take 1 tablet by mouth three times daily for 90 days. Take one at HS for 5 days, THEN bid FOR 5 DAYS , THEN three times a day tiZANidine (ZANAFLEX) 4 mg tablet Take 1 tablet by mouth at bedtime as needed. predniSONE (DELTASONE) 10 mg tablet Take 40 mg a day for 3 daysthen Take 30mg Qam for 3 days, then 20mg Qam for 3 days, then 10mg Qam for 3 days, then 5mg ( 1/2 tablet) Q am FOR 4 DAYS. 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 Has been experiencing low back pain with radiation to the lower extremity and weakness in the lower extremity. Patient also been experiencing some bladder disturbance. Patient was put on prednisone for 2 weeks and was referred to get an MRI to evaluate for possible cauda equina compression. He was also referred for some physical therapy Present today stating that there is definitely some improvement of the pain with the Medrol Dosepak although the pain is not totally gone. He still experiencing pain that sometimes up to 10 over 10 in intensity. Pain is across the lower back and it radiate to both lower extremities especially in the outer aspect and posterior aspect of the calf bilaterally. The pain is associated with weakness in the lower extremity pins and needles and tingling and numbness. Patient stated that he feels that the lower part of the leg was like ice and he sometimes feels that he cannot feel the floor. He has been using a walker for ambulation for the last few weeks because he cannot support his weight. He still experiencing some leakage of urine when he is going from sitting to standing position or with any straining. On exam is alert oriented ?3 in no acute distress vital signs stable . Head normocephalic with no evidence of trauma pupils are round equal reactive to light and accommodation neck was supple with no JVD. Upper extremity exam within normal limits and motor sensory and reflexes He had difficulty going from sitting to standing position. He walk with a flexed forward gait using a walker for ambulation. Resumed of the lumbar spine is limited motor function the lower extremities or weakness in both legs more on the right than the left. Sensory function for light touch grossly intact deep tendon reflexes minimal.the straight leg raising test was questionable bilateral . Most recent MRI of the lumbar spine reveals a markedly central canal narrowing at the L4 5 level secondary to a large right paracentral disc extrusion feeling the Central canal and extending 7 mm below the L5 superior endplate. There is mild disc height reduction. 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 He got partial improvement with prednisone taper. Discussed with him treatment option including consideration of any nerve blocks. I also explained to him that at this stage it is recommended to see a surgeon to discuss if surgical intervention would be indicated Patient is not interested in any nerve blocks for now and he is willing to consider surgical intervention if needed I'll put him on prednisone for the next 2 weeks to help with the residual pain. We'll put a recommendation for evaluation by neurosurgeon He was instructed in the need of physical therapy for the lower extremity and he can do it on his own. Patient has no primary care physician and he was instructed to make sure that he will have a primary care physician before considering going for the surgery for general evaluation before the surgery and to take care of things if needed after the surgery Understand the plan and agree of proceeding He will return on when necessary basis after his surgical consultation Referring Provider: SELF [[id number]] Allergies As of Date: 12/07/2018 (No Known Allergies) Date Reviewed: 11/23/2018 Reviewed by: Holli Mendoza) DANYELLE Garcia - Fully Assessed Reason for Visit: Pain [78] Cmt: back,legs Reason For Visit History Recorded Primary Visit Diagnosis:Acute bilateral low back pain with sciatica, sciatica laterality unspecified [M54.40] Other Visit Diagnoses:Weakness of both lower extremities [R29.898] Herniated lumbar intervertebral disc [M51.26] Foraminal stenosis of lumbar region [M99.83] Facet arthropathy, lumbar [M47.816] Order(s):CONSULT TO NEUROSURGERY [19990518] Order #: [id number]: 1 predniSONE (DELTASONE) 10 mg tabletTake 40 mg for 3 days, then Take 30mg Qam for 3 days, then 20mg Qam for 3 days, then 10mg Qam for 3 days, then 5mg ( 1/2 tablet) Q am FOR 6 DAYS.Disp: 33 tabletRfl: 0 Prescriptions as of 12/07/2018 Sig: HYDROCODONE 5 MG-ACETAMINOPHE* Take 5-325 tablets by mouth. IBUPROFEN 800 MG TABLET Take 1 tablet by mouth every * GABAPENTIN 600 MG TABLET Take 1 tablet by mouth three * TERBINAFINE HCL 250 MG TABLET 1 po daily OXYCODONE 10 MG TABLET CARMOL 40 40 % TOPICAL CREAM bid to heels prn roughness ECONAZOLE 1 % TOPICAL CREAM bid between toes until rash r* PREDNISONE 10 MG TABLET Take 40 mg for 3 days, then T* PREDNISONE 5 MG TABLET Take 5 mg by mouth. TIZANIDINE 4 MG TABLET Take 1 tablet by mouth at bed* Patient not taking: Reported on 12/07/2018 PREDNISONE 10 MG TABLET Take 40 mg a day for 3 daysth* Patient not taking: Reported on 12/07/2018 Problem List As Of Date 12/07/2018 Noted Resolved Acute bilateral low back pain with sciatica [M5*INVALID FOR* Weakness of both lower extremities [R29.898] INVALID FOR* Herniated lumbar intervertebral disc [M51.26] INVALID FOR* Foraminal stenosis of lumbar region [M99.83] INVALID FOR* Facet arthropathy, lumbar [M47.816] INVALID FOR* Prescriptions ordered this encounter Disp Refills Start End PREDNISONE 10 MG TABLET 33 t* 0 12/07/2018 Class: Print RX Sig: Take 40 mg for 3 days, then Take 30mg Qam for 3 days, then 20mg Qam for 3 days, then 10mg Qam for 3 days, then 5mg ( 1/2 tablet) Q am FOR 6 DAYS. Encounter Status:Closed by VALENTIN MART MD on 12/07/18 Normal [facility] PROGRESSon 12-07-2018 PROGRESS HNO ID: [id number] Author: Valentin Mart Service: ? Author Type: Physician Type: Progress Notes Filed: 12/07/2018 11:28 AM Note Text: Follow up Visit Patient Name: Wendie Sorensen MR #: [id number] Age: [age] year old Date: December 07, 2018 Referred by: Dr. Wright Patient was last seen on November 24, 2018 for the diagnosis of Low back pain with bilateral sciatica Bilateral lower extremity weakness and sensory changes Bowel and bladder changes need to rule out cauda equina syndrome The following plan of care was recommended Patient's records are not available to review he would be signing a release form so that his previous records. I would order an x-ray of the lumbar spine today for an evaluation Order an MRI of the lumbar spine to evaluate for possible pressure on the Cauda Equina that may require urgent surgical intervention Sending him for some PT to help strengthening his back and his lower extremity I'll put on on Prednisone 40 mg to be decreased gradually over the next 2 weeks Once he finishes the Prednisone will start on Motrin 800 mg 3 times a day I'll put him on Percocet 09/11/24 one by mouth 3 times a day when necessary for the acute episode he will get 21 tablet for 7 days with no refills Start him on Zanaflex 4 mg one by mouth 3 times a day He would be using heat and ice as needed With see the results of the MRI and if he is not a surgical candidate discuss if any intervention would be appropriate Was there relief from this treatment? Yes. Did not start Gabapentin or Zanaflex. However, patient has improved. Has been taking a bath in Epsom salt. Has some urinary incontinence and some constipation How long did the patient get relief from this treatment? Current improvement What percentage of pain did the patient feel was relieved with this treatment? some MRI done See result Xray Counting reference: Lumbosacral junction. For the purposes of this report, L4-5 is considered the level of the iliac crest and there are 5 lumbar-type vertebrae. Anatomic Variants: None. Alignment is normal. Moderate degenerative disc disease at L3-4 and L4-5. Degenerative facet changes in the lower lumbar spine. No fractures. Incidental note of moderate right hip osteoarthritis. No other significant abnormality Treatment agreement on file: No Last toxicology screen done:N/A This Episode: Pattern: Constant. Character: Dull, Aching and burning,numbness. Severity: VAS Pain: 10/10 Current Location: low back Radiation: radiating to bilateral legs and feet. Associated Signs/Symptoms: Decreased social activity and Sleep disturbance; awakens during night due to pain and difficulty falling asleep. Sensory/Motor Changes: Numbness or Weakness. Changes in Bowel/Bladder Control?: No. Number of hours of sleep per night: poor Is sleep interrupted by pain? Yes. Patient feels safe at home: Yes Allergies: ALLERGIES No Known Allergies Current Outpatient Medications: HYDROcodone-acetaminophen (NORCO) 5-325 mg per tablet Take 5-325 tablets by mouth. predniSONE (DELTASONE) 5 mg tablet Take 5 mg by mouth. ibuprofen (MOTRIN) 800 mg tablet Take 1 tablet by mouth every 8 hours as needed. gabapentin (NEURONTIN) 600 mg tablet Take 1 tablet by mouth three times daily for 90 days. Take one at HS for 5 days, THEN bid FOR 5 DAYS , THEN three times a day tiZANidine (ZANAFLEX) 4 mg tablet Take 1 tablet by mouth at bedtime as needed. predniSONE (DELTASONE) 10 mg tablet Take 40 mg a day for 3 daysthen Take 30mg Qam for 3 days, then 20mg Qam for 3 days, then 10mg Qam for 3 days, then 5mg ( 1/2 tablet) Q am FOR 4 DAYS. 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 Has been experiencing low back pain with radiation to the lower extremity and weakness in the lower extremity. Patient also been experiencing some bladder disturbance. Patient was put on prednisone for 2 weeks and was referred to get an MRI to evaluate for possible cauda equina compression. He was also referred for some physical therapy Present today stating that there is definitely some improvement of the pain with the Medrol Dosepak although the pain is not totally gone. He still experiencing pain that sometimes up to 10 over 10 in intensity. Pain is across the lower back and it radiate to both lower extremities especially in the outer aspect and posterior aspect of the calf bilaterally. The pain is associated with weakness in the lower extremity pins and needles and tingling and numbness. Patient stated that he feels that the lower part of the leg was like ice and he sometimes feels that he cannot feel the floor. He has been using a walker for ambulation for the last few weeks because he cannot support his weight. He still experiencing some leakage of urine when he is going from sitting to standing position or with any straining. On exam is alert oriented ?3 in no acute distress vital signs stable . Head normocephalic with no evidence of trauma pupils are round equal reactive to light and accommodation neck was supple with no JVD. Upper extremity exam within normal limits and motor sensory and reflexes He had difficulty going from sitting to standing position. He walk with a flexed forward gait using a walker for ambulation. Resumed of the lumbar spine is limited motor function the lower extremities or weakness in both legs more on the right than the left. Sensory function for light touch grossly intact deep tendon reflexes minimal.the straight leg raising test was questionable bilateral . Most recent MRI of the lumbar spine reveals a markedly central canal narrowing at the L4 5 level secondary to a large right paracentral disc extrusion feeling the Central canal and extending 7 mm below the L5 superior endplate. There is mild disc height reduction. 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 He got partial improvement with prednisone taper. Discussed with him treatment option including consideration of any nerve blocks. I also explained to him that at this stage it is recommended to see a surgeon to discuss if surgical intervention would be indicated Patient is not interested in any nerve blocks for now and he is willing to consider surgical intervention if needed I'll put him on prednisone for the next 2 weeks to help with the residual pain. We'll put a recommendation for evaluation by neurosurgeon He was instructed in the need of physical therapy for the lower extremity and he can do it on his own. Patient has no primary care physician and he was instructed to make sure that he will have a primary care physician before considering going for the surgery for general evaluation before the surgery and to take care of things if needed after the surgery Understand the plan and agree of proceeding He will return on when necessary basis after his surgical consultation Normal [facility] MS-MRI L-SPINE WO CON IMPORT on 12-03-2018 MS-MRI L-SPINE WO CON IMPORT Images were obtained outside of [facility] [id number] Normal [facility] CNOVon 11-23-2018 CNOV Office Visit (PAINCR ) ----- WENDIE SORENSEN ([id number]) 1965 M Date Time Provider Department 11/23/18 8:30 AM VALENTIN MART During your visit today, we recorded the following information about you: Pulse Respiration Blood pressure Weight 73/minute 16/minute 150/90 115.7 kg Height 1.778 m Valentin Mart MD 11/23/2018 9:35 AM Signed History and Physical Assessment of Neck and Back Pain Patient Name: Wendie Sorensen MR #: [id number] Age: [age] year old Date: November 24, 2018 Referred by: Dr. Wright Chief Complaint: This patient is a 53 year old male who presents today with complaints of LBP. Past History of Pain in similar or same area: Yes Started Following: Accident at work. Started originally 05/27/2008 , and was treated with no surgery, injections--did not help, PT,Prednisone,Vicodin, ER visits Previous Treatments: OTC Meds: Tylenol, Advil and Aleve Effect: takes the edge off Prescription Meds: NSAIDS, steroids and narcotics Effect: takes the edge off General: Rest and Change activities. Effect: temporary Assistive Devices: walker. Physical Therapy: Yes. Effect: aggravated the pain Injection(s): no relief. Effect: no relief Previous Surgery: No Imaging Results: needs to sign a release---Paula--Meron saxena MD This Episode: Date of Onset: 05/2008 Pattern: Constant. Character: Burning, Dull, Aching and numbness,tingling. Severity: VAS Pain: 10/10 Current; 10/10 Worst; 10/10 Best. Location: low back Radiation: radiating to buttocks,legs,feet. Exacerbating Factors: Movement. Alleviating Factors: Nothing makes my pain better . Associated Signs/Symptoms: Decreased social activity and Sleep disturbance; awakens during night due to pain and difficulty falling asleep. Sensory/Motor Changes: Tingling, Numbness, Weakness or Difficulty using stairs. Progressive Weakness?: Yes. AM Stiffness?: Yes. Duration: constant. Changes in Bowel/Bladder Control?: Yes. . Location of Joint Swelling: Low Back. Location of Joint Pain: Low Back. Effects of Pain: Personal Care: Needs assistance. Household Tasks: Unable. Job Functions: Unable secondary to pain Review of Systems: General Appearance: depressed and frustrated. General: fatigue and weakness. Skin: Normal/Negative. Heart/Lungs: Normal/Negative. GI: constipation. /WHITE WASHER: frequency. Heme: Normal/Negative. Endo: Normal/Negative. Neuro: sleep disturbance, decreased ROM and depression. HEENT: neuropathy and feels like his balance is off Skeletal: muscle weakness and muscle pains. No past medical history on file. No past surgical history on file. Social History Socioeconomic History Marital status: Spouse name: Not on file Number of children: Not on file Years of education: Not on file Highest education level: Not on file Social Needs Financial resource strain: Not on file Food insecurity - worry: Not on file Food insecurity - inability: Not on file Transportation needs - medical: Not on file Transportation needs - non-medical: Not on file Occupational History Not on file Tobacco Use Smoking status: Never Smoker Substance and Sexual Activity Alcohol use: Not on file Drug use: Not on file Sexual activity: Not on file Other Topics Concerns: Not on file Social History Narrative Not on file No family history on file. Allergies: ALLERGIES No Known Allergies Current Outpatient Medications: TERBINAFINE 250 MG TAB 1 po daily OXYCODONE 10 MG TAB urea(CARMOL 40 40 % TOPICAL CREAM) bid to heels prn roughness ECONAZOLE 1 % TOPICAL CREAM bid between toes until rash resolved, then for 1 more week Is patient on blood thinners? No Patient feels safe at home: Yes Rn Gynecology: Holli Garcia RN Patient is a 53-year-old white male self-referred for evaluation of low back pain radiating to both lower extremity patient had a work-related injury more than 10 years ago. Has been treated conservatively in outside facilities and had physical therapy as well as injection was partial and temporary improvement of his pain. Patient has been experiencing pain in the back and in the legs with waxing and weaning of the symptoms. Has been experiencing sudden remarkable increase pain for the last week requiring him multiple emergency room visits. He was scheduled today to be seen for an urgent appointment because of the pain He rates his pain as 10 over 10 in intensity and he stated that he is unable to walk stand or sit. He cannot find any comfortable position. The pain is across the lower back and radiates to both lower extremities in the back of the thigh to the back of the calf all the way to the ankle associated with pins and needles and tingling and numbness, patient stated that despite of the tingling and numbness in the lower extremity he has been feeling hypersensitivity to any touch of the lower extremitym patient also noticed that he has been losing control over bowel and but bladder. He stated that if he will try to push himself to stand up he can urinate involuntarily. He had been experiencing severe constipation not even responding to stool softeners. He feels some degree of weakness in the lower extremity and he has been using a walker for ambulation. He denies any specific precipitating or relieving factor for his pain Past medical history, past surgical history, family history, social history, allergies, medication, review of systems were all reviewed as above On exam alert oriented pleasant male who appears in no acute distress. Vital signs stable. Most of the interview was done: The patient is standing and bending forward and holding on walker because he had difficulty sitting. Head is normocephalic with no evidence of trauma. Pupils are round equal reactive to light and accommodation with extraocular muscles intact. Neck was supple with no JVD. Range of movement of the cervical spine within normal limits. Motor sensory and reflexes in the upper extremity within normal limits Patient had difficulty with walking. He walk with a very antalgic gait using a walker for ambulation. He had remarkable difficulty walking on heels and on tiptoes. Range of movement of the lumbar spine is very limited. Motor function the lower extremity could not be tested accurately because of the patient's very low effort secondary to pain however there is no major weakness could be detected except for the thigh flexors when the patient couldn't even raise his knees. At the time he stated that if he tried to push himself he will not be able to hold his urine. Deep tendon reflexes were present. Sensory function she'll hypersensitivity everywhere however no hyperalgesia or allodynia. The straight leg raising test was positive bilaterally No records from previous office visits or procedure and no radiological studies for review Impression Low back pain with bilateral sciatica Bilateral lower extremity weakness and sensory changes Bowel and bladder changes need to rule out cauda equina syndrome Plan Patient's records are not available to review he would be signing a release form so that his previous records. I would order an x-ray of the lumbar spine today for an evaluation Order an MRI of the lumbar spine to evaluate for possible pressure on the cauda equina that may require urgent surgical intervention Sending him for some physical therapy to help strengthening his back and his lower extremity I'll put on on prednisone 40 mg to be decreased gradually over the next 2 weeks Once he finishes the prednisone will start on Motrin 800 mg 3 times a day I'll put him on Percocet 09/11/24 one by mouth 3 times a day when necessary for the acute episode he will get 21 tablet for 7 days with no refills Start him on Zanaflex 4 mg one by mouth 3 times a day He would be using heat and ice as needed With see the results of the MRI and if he is not a surgical candidate discuss if any intervention would be appropriate He understand the plan and agree of proceeding.. Referring Provider: SELF [[id number]] Allergies As of Date: 11/23/2018 (No Known Allergies) Date Reviewed: 11/23/2018 Reviewed by: Holli Mendoza) DANYELLE Garcia - Fully Assessed Reason for Visit: Pain [78] Cmt: low back,legs,feet Primary Visit Diagnosis:Acute bilateral low back pain with sciatica, sciatica laterality unspecified [M54.40] Other Visit Diagnosis:Weakness of both lower extremities [R29.898] Order(s):XR LUMBAR GENERAL 3V AP/LAT/L5-S1 [4324020] Order #: [id number] FUTURE CONSULT TO PHYSICAL THERAPY [9083] Order #: [id number]: 1 ibuprofen (MOTRIN) 800 mg tabletTake 1 tablet by mouth every 8 hours as needed.Disp: 90 tabletRfl: 1 gabapentin (NEURONTIN) 600 mg tabletTake 1 tablet by mouth three times daily for 90 days. Take one at HS for 5 days, THEN bid FOR 5 DAYS , THEN three times a dayDisp: 90 tabletRfl: 1 tiZANidine (ZANAFLEX) 4 mg tabletTake 1 tablet by mouth at bedtime as needed.Disp: 30 tabletRfl: 1 predniSONE (DELTASONE) 10 mg tabletTake 40 mg a day for 3 daysthen Take 30mg Qam for 3 days, then 20mg Qam for 3 days, then 10mg Qam for 3 days, then 5mg ( 1/2 tablet) Q am FOR 4 DAYS.Disp: 32 tabletRfl: 0 CONSULT TO NEUROSURGERY [[id number]] Order #: [id number]: 1 oxyCODONE-acetaminophen (PERCOCET) 5-325 mg tabletTake 1 tablet by mouth every 8 hours as needed for up to 7 days. Earliest Fill Date: 11/23/18Disp: 21 tabletRfl: 0 MRI LUMBAR SPINE WO IVCON [[id number]] Order #: [id number] FUTURE Prescriptions as of 11/23/2018 Sig: HYDROCODONE 5 MG-ACETAMINOPHE* Take 5-325 tablets by mouth. PREDNISONE 5 MG TABLET Take 5 mg by mouth. IBUPROFEN 800 MG TABLET Take 1 tablet by mouth every * GABAPENTIN 600 MG TABLET Take 1 tablet by mouth three * TIZANIDINE 4 MG TABLET Take 1 tablet by mouth at bed* PREDNISONE 10 MG TABLET Take 40 mg a day for 3 daysth* OXYCODONE-ACETAMINOPHEN 5 MG-* Take 1 tablet by mouth every * TERBINAFINE HCL 250 MG TABLET 1 po daily OXYCODONE 10 MG TABLET CARMOL 40 40 % TOPICAL CREAM bid to heels prn roughness ECONAZOLE 1 % TOPICAL CREAM bid between toes until rash r* Problem List As Of Date 11/23/2018 Noted Resolved Acute bilateral low back pain with sciatica [M5*INVALID FOR* Weakness of both lower extremities [R29.898] INVALID FOR* Prescriptions ordered this encounter Disp Refills Start End IBUPROFEN 800 MG TABLET 90 t* 1 11/23/2018 Class: Print RX Route: ORAL Sig: Take 1 tablet by mouth every 8 hours as needed. GABAPENTIN 600 MG TABLET 90 t* 1 11/23/2018 02/21/2019 Class: Print RX Route: ORAL Sig: Take 1 tablet by mouth three times daily for 90 days. Take one at HS for 5 days, THEN bid FOR 5 DAYS , THEN three times a day TIZANIDINE 4 MG TABLET 30 t* 1 11/23/2018 Class: Print RX Route: ORAL Sig: Take 1 tablet by mouth at bedtime as needed. PREDNISONE 10 MG TABLET 32 t* 0 11/23/2018 Class: Print RX Sig: Take 40 mg a day for 3 daysthen Take 30mg Qam for 3 days, then 20mg Qam for 3 days, then 10mg Qam for 3 days, then 5mg ( 1/2 tablet) Q am FOR 4 DAYS. OXYCODONE-ACETAMINOPHEN 5 MG-325 MG * 21 t* 0 11/23/2018 11/30/2018 Class: Print RX Route: ORAL Sig: Take 1 tablet by mouth every 8 hours as needed for up to 7 days. Earliest Fill Date: 11/23/18 Encounter Status:Closed by VALENTIN MART MD on 11/23/18 [facility] PROGRESSon 11-23-2018 PROGRESS HNO ID: [id number] Author: Nya Olivas (Tech) Service: ? Author Type: Bottom Worker Type: Progress Notes Filed: 11/23/2018 9:52 AM Note Text: Radiology Service Progress Note PATIENT NAME: Wendie Sorensen DATE OF SERVICE: November 23, 2018 TIME: 9:52 AM PATIENT IDENTITY VERIFICATION COMPLETED USING TWO (2) METHODS: Patient confirmed name verbally and Date of . PATIENT GENDER DATA: Male PATIENT RELEVANT IMPLANT DATA REVIEWED: Not Applicable RADIOLOGY DEPARTMENT: General X-ray: Exam(s) Completed: Spine X-Ray(s): Lumbar AP / LAT / L5-S1 PERIPHERAL IV DATA: Not applicable SIGNED BY: Nya Olivas RRT November 23, 2018 9:52 AM [facility] PROGRESS HNO ID: [id number] Author: Valentin Mart Service: ? Author Type: Physician Type: Progress Notes Filed: 11/23/2018 9:35 AM Note Text: History and Physical Assessment of Neck and Back Pain Patient Name: Wendie Sorensen MR #: [id number] Age: [age] year old Date: November 24, 2018 Referred by: Dr. Wright Chief Complaint: This patient is a 53 year old male who presents today with complaints of LBP. Past History of Pain in similar or same area: Yes Started Following: Accident at work. Started originally 05/27/2008 , and was treated with no surgery, injections--did not help, PT,Prednisone,Vicodin, ER visits Previous Treatments: OTC Meds: Tylenol, Advil and Aleve Effect: takes the edge off Prescription Meds: NSAIDS, steroids and narcotics Effect: takes the edge off General: Rest and Change activities. Effect: temporary Assistive Devices: walker. Physical Therapy: Yes. Effect: aggravated the pain Injection(s): no relief. Effect: no relief Previous Surgery: No Imaging Results: needs to sign a release---Paula--Meron saxena MD This Episode: Date of Onset: 05/2008 Pattern: Constant. Character: Burning, Dull, Aching and numbness,tingling. Severity: VAS Pain: 10/10 Current; 10/10 Worst; 10/10 Best. Location: low back Radiation: radiating to buttocks,legs,feet. Exacerbating Factors: Movement. Alleviating Factors: Nothing makes my pain better . Associated Signs/Symptoms: Decreased social activity and Sleep disturbance; awakens during night due to pain and difficulty falling asleep. Sensory/Motor Changes: Tingling, Numbness, Weakness or Difficulty using stairs. Progressive Weakness?: Yes. AM Stiffness?: Yes. Duration: constant. Changes in Bowel/Bladder Control?: Yes. . Location of Joint Swelling: Low Back. Location of Joint Pain: Low Back. Effects of Pain: Personal Care: Needs assistance. Household Tasks: Unable. Job Functions: Unable secondary to pain Review of Systems: General Appearance: depressed and frustrated. General: fatigue and weakness. Skin: Normal/Negative. Heart/Lungs: Normal/Negative. GI: constipation. /WHITE WASHER: frequency. Heme: Normal/Negative. Endo: Normal/Negative. Neuro: sleep disturbance, decreased ROM and depression. HEENT: neuropathy and feels like his balance is off Skeletal: muscle weakness and muscle pains. No past medical history on file. No past surgical history on file. Social History Socioeconomic History Marital status: Spouse name: Not on file Number of children: Not on file Years of education: Not on file Highest education level: Not on file Social Needs Financial resource strain: Not on file Food insecurity - worry: Not on file Food insecurity - inability: Not on file Transportation needs - medical: Not on file Transportation needs - non-medical: Not on file Occupational History Not on file Tobacco Use Smoking status: Never Smoker Substance and Sexual Activity Alcohol use: Not on file Drug use: Not on file Sexual activity: Not on file Other Topics Concerns: Not on file Social History Narrative Not on file No family history on file. Allergies: ALLERGIES No Known Allergies Current Outpatient Medications: TERBINAFINE 250 MG TAB 1 po daily OXYCODONE 10 MG TAB urea(CARMOL 40 40 % TOPICAL CREAM) bid to heels prn roughness ECONAZOLE 1 % TOPICAL CREAM bid between toes until rash resolved, then for 1 more week Is patient on blood thinners? No Patient feels safe at home: Yes Rn Gynecology: Hloli Garcia RN Patient is a 53-year-old white male self-referred for evaluation of low back pain radiating to both lower extremity patient had a work-related injury more than 10 years ago. Has been treated conservatively in outside facilities and had physical therapy as well as injection was partial and temporary improvement of his pain. Patient has been experiencing pain in the back and in the legs with waxing and weaning of the symptoms. Has been experiencing sudden remarkable increase pain for the last week requiring him multiple emergency room visits. He was scheduled today to be seen for an urgent appointment because of the pain He rates his pain as 10 over 10 in intensity and he stated that he is unable to walk stand or sit. He cannot find any comfortable position. The pain is across the lower back and radiates to both lower extremities in the back of the thigh to the back of the calf all the way to the ankle associated with pins and needles and tingling and numbness, patient stated that despite of the tingling and numbness in the lower extremity he has been feeling hypersensitivity to any touch of the lower extremitym patient also noticed that he has been losing control over bowel and but bladder. He stated that if he will try to push himself to stand up he can urinate involuntarily. He had been experiencing severe constipation not even responding to stool softeners. He feels some degree of weakness in the lower extremity and he has been using a walker for ambulation. He denies any specific precipitating or relieving factor for his pain Past medical history, past surgical history, family history, social history, allergies, medication, review of systems were all reviewed as above On exam alert oriented pleasant male who appears in no acute distress. Vital signs stable. Most of the interview was done: The patient is standing and bending forward and holding on walker because he had difficulty sitting. Head is normocephalic with no evidence of trauma. Pupils are round equal reactive to light and accommodation with extraocular muscles intact. Neck was supple with no JVD. Range of movement of the cervical spine within normal limits. Motor sensory and reflexes in the upper extremity within normal limits Patient had difficulty with walking. He walk with a very antalgic gait using a walker for ambulation. He had remarkable difficulty walking on heels and on tiptoes. Range of movement of the lumbar spine is very limited. Motor function the lower extremity could not be tested accurately because of the patient's very low effort secondary to pain however there is no major weakness could be detected except for the thigh flexors when the patient couldn't even raise his knees. At the time he stated that if he tried to push himself he will not be able to hold his urine. Deep tendon reflexes were present. Sensory function she'll hypersensitivity everywhere however no hyperalgesia or allodynia. The straight leg raising test was positive bilaterally No records from previous office visits or procedure and no radiological studies for review Impression Low back pain with bilateral sciatica Bilateral lower extremity weakness and sensory changes Bowel and bladder changes need to rule out cauda equina syndrome Plan Patient's records are not available to review he would be signing a release form so that his previous records. I would order an x-ray of the lumbar spine today for an evaluation Order an MRI of the lumbar spine to evaluate for possible pressure on the cauda equina that may require urgent surgical intervention Sending him for some physical therapy to help strengthening his back and his lower extremity I'll put on on prednisone 40 mg to be decreased gradually over the next 2 weeks Once he finishes the prednisone will start on Motrin 800 mg 3 times a day I'll put him on Percocet 09/11/24 one by mouth 3 times a day when necessary for the acute episode he will get 21 tablet for 7 days with no refills Start him on Zanaflex 4 mg one by mouth 3 times a day He would be using heat and ice as needed With see the results of the MRI and if he is not a surgical candidate discuss if any intervention would be appropriate He understand the plan and agree of proceeding.. Normal [facility] XR LUMBAR 3V AP/LAT/L5-S1on 11-23-2018 XR LUMBAR 3V AP/LAT/L5-S1 * * *Final Report* * * DATE OF EXAM: Nov 23 2018 9:51AM CRX [id number] - XR LUMBAR 3V AP/LAT/L5-S1 / PROCEDURE REASON: Acute bilateral low back pain with sciatica, sciatica laterality unspecified * * * * Physician Interpretation * * * * EXAMINATION: XR LUMBAR 3V AP/LAT/L5-S1 HISTORY: LOW BACK PAIN RADIATES TO BOTH LEGS Acute bilateral low back pain with sciatica, sciatica laterality unspecified . TECHNIQUE: XR LUMBAR 3V AP/LAT/L5-S1 Laterality: NOT APPLICABLE Number of different views (projections): 3 COMPARISON: None RESULT: Counting reference: Lumbosacral junction. For the purposes of this report, L4-5 is considered the level of the iliac crest and there are 5 lumbar-type vertebrae. Anatomic Variants: None. Alignment is normal. Moderate degenerative disc disease at L3-4 and L4-5. Degenerative facet changes in the lower lumbar spine. No fractures. Incidental note of moderate right hip osteoarthritis. No other significant abnormality. IMPRESSION: DEGENERATIVE CHANGES DESCRIBED Help Desk Consultant: TRIXIE Transcribe Date/Time: Nov 23 2018 10:22A Dictated by : NOLBERTO JETER MD This examination was interpreted and the report reviewed and electronically signed by: NOLBERTO JETER MD on Nov 23 2018 10:22AM EST [id number] Normal [facility] CNCOon 11-20-2018 CNCO Letter Text Normal [facility] CNOVon 04-30-2018 CNOV Office Visit (AMDERM ) ----- WENDIE SORENSEN ([id number]) 1965 M Date Time Provider Department 04/30/18 11:05 AM MARIA ELENA DOTY CNP During your visit today, we recorded the following information about you: Maria Elena Doty APRN.CNP 04/30/2018 11:21 AM Signed SKIN EXAM NEW CC: This patient is a 53 year old male. Patient presents with: New Patient LESION, SKIN HPI: Patient declines Full Body Skin Exam today Location: right chest Appearance (size, shape, color): brown, fuzzy spot Duration: along time Symptoms (growing, itching, bleeding, tender): grown in size, fuzzy Treatments: none Location: left shoulder blade Appearance (size, shape, color): brown spot Duration: along time Symptoms (growing, itching, bleeding, tender): scratched part of this off Treatments: scratched at this lesion Patient is requesting these taken off. -Personal history of skin cancer: No -History of blistering sunburns:No -Family history of skin cancer: No SOC: Social History Marital status: Spouse name: Years of education: Number of children: Social History Main Topics Smoking status: Never Smoker MEDS: Current outpatient prescriptions: Current Outpatient Prescriptions on File Prior to Visit: ECONAZOLE 1 % TOPICAL CREAM bid between toes until rash resolved, then for 1 more week OXYCODONE 10 MG TAB TERBINAFINE 250 MG TAB 1 po daily urea(CARMOL 40 40 % TOPICAL CREAM) bid to heels prn roughness No current facility-administered medications on file prior to visit. ALLERGY: ALLERGIES No Known Allergies PAST MEDICAL HISTORY: No chronic skin disease or skin cancer FAMILY HISTORY: No chronic skin disease or skin cancer REVIEW OF SYSTEMS: Patient feels well and denies any recent fevers, chills, or nightsweats. PHYSICAL EXAM: The patient is a pleasant male in no distress. Patient is healthy, well developed, well nourished and in otherwise good health. he is alert and oriented x 3. A skin exam was done of the face, neck, chest and back. Declines further exam today. Khan Skin Type: III IMPRESSION: Left scapula stuck on brown plaque Right chest stuck on brown plaque Right of midline upper back light brown firm sq nodule + dimple test A/P: (L82.1) Seborrheic keratosis (primary encounter diagnosis) Comment: Discussed etiology and educated. Reassured benign nature. Discussed that removal is generally considered cosmetic in nature and will incur a fee. Patient agrees and would like to proceed. Cryosurgery of non-malignant lesion(s) Risks, benefits, alternatives and personnel required for cryosurgery reviewed with patient. Pt verbalizes understanding and wishes to proceed. Derm Nurse Practitioner : Maria Elena Doty CNP Cryosurgery performed with Liquid Nitrogen via cryostat spray gun to Seborrheic Keratosis . 2 lesion(s) treated. Patient tolerated well. Wound care instructions provided, pt verbalizes understanding. COST CODE: FA (D23.9) Dermatofibroma Comment: Discussed etiology and educated. Reassured benign nature. Follow up in as needed. Maria Elena Doty CNP Attending: Dr. Higginbotham The documentation for this note was completed by Ara Velez acting as scribe for Maria Elena Doty APRN.CNP. April 30, 2018 11:08 AM. I agree with the Chief Complaint, ROS, and Past Histories independently gathered by the clinical media production support manager and the remaining scribed note accurately describes my personal service to the patient. Ara Velez 04/30/2018 11:16 AM Signed [facility] DERMATOLOGY DEPARTMENT Liquid Nitrogen Therapy Care Instructions 1. The area may be red and puffy. Cool compress or a washcloth will help with the discomfort. 2. A blister, even a blood blister, may form. You will feel better if you break it. Use a sterile needle and gently squeeze out the fluid. 3. Clean area with soap and water daily. A band aid is not necessary, but may be used for protection. Change it daily. Do not leave a soiled or wet band aid on the wound. 4. Apply vaseline daily until scab comes off. 5. Aspirin, Tylenol, or Ibuprophen may be used for pain. 6. As soon as scab has formed, you do not need to cleanse area and you may leave the bandage off. The scab will generally fall off in 3-4 weeks on the face, but may take longer on the other areas of the body. 7. Call if you have any problems or questions or if these areas recur or do not go away Referring Provider: SELF [[id number]] Allergies As of Date: 04/30/2018 (No Known Allergies) Date Reviewed: 04/30/2018 Reviewed by: Maria Elena Alejandra) Rico - Fully Assessed Reason for Visit: New Patient [172] LESION, SKIN [936] Primary Visit Diagnosis:Seborrheic keratosis [L82.1] Other Visit Diagnosis:Dermatofibroma [D23.9] Prescriptions as of 04/30/2018 Sig: ECONAZOLE 1 % TOPICAL CREAM bid between toes until rash r* OXYCODONE 10 MG TABLET TERBINAFINE HCL 250 MG TABLET 1 po daily CARMOL 40 40 % TOPICAL CREAM bid to heels prn roughness Problem List As Of Date: 04/30/2018 (None) Other instructions from your clinician: [facility] DERMATOLOGY DEPARTMENT Liquid Nitrogen Therapy Care Instructions 1. The area may be red and puffy. Cool compress or a washcloth will help with the discomfort. 2. A blister, even a blood blister, may form. You will feel better if you break it. Use a sterile needle and gently squeeze out the fluid. 3. Clean area with soap and water daily. A band aid is not necessary, but may be used for protection. Change it daily. Do not leave a soiled or wet band aid on the wound. 4. Apply vaseline daily until scab comes off. 5. Aspirin, Tylenol, or Ibuprophen may be used for pain. 6. As soon as scab has formed, you do not need to cleanse area and you may leave the bandage off. The scab will generally fall off in 3-4 weeks on the face, but may take longer on the other areas of the body. 7. Call if you have any problems or questions or if these areas recur or do not go away Disposition: Return if symptoms worsen or fail to improve. Follow-up and Disposition History Recorded Encounter Status:Closed by MARIA ELENA DOTY CNP on 04/30/18 Normal [facility] PROGRESSon 04-30-2018 PROGRESS HNO ID: [id number] Author: Maria Elena Alejandra) Rico Service: (none) Author Type: Nurse Practitioner Type: Progress Notes Filed: 04/30/2018 11:21 AM Note Text: SKIN EXAM NEW CC: This patient is a 53 year old male. Patient presents with: New Patient LESION, SKIN HPI: Patient declines Full Body Skin Exam today Location: right chest Appearance (size, shape, color): brown, fuzzy spot Duration: along time Symptoms (growing, itching, bleeding, tender): grown in size, fuzzy Treatments: none Location: left shoulder blade Appearance (size, shape, color): brown spot Duration: along time Symptoms (growing, itching, bleeding, tender): scratched part of this off Treatments: scratched at this lesion Patient is requesting these taken off. -Personal history of skin cancer: No -History of blistering sunburns:No -Family history of skin cancer: No SOC: Social History Marital status: Spouse name: Years of education: Number of children: Social History Main Topics Smoking status: Never Smoker MEDS: Current outpatient prescriptions: Current Outpatient Prescriptions on File Prior to Visit: ECONAZOLE 1 % TOPICAL CREAM bid between toes until rash resolved, then for 1 more week OXYCODONE 10 MG TAB TERBINAFINE 250 MG TAB 1 po daily urea(CARMOL 40 40 % TOPICAL CREAM) bid to heels prn roughness No current facility-administered medications on file prior to visit. ALLERGY: ALLERGIES No Known Allergies PAST MEDICAL HISTORY: No chronic skin disease or skin cancer FAMILY HISTORY: No chronic skin disease or skin cancer REVIEW OF SYSTEMS: Patient feels well and denies any recent fevers, chills, or nightsweats. PHYSICAL EXAM: The patient is a pleasant male in no distress. Patient is healthy, well developed, well nourished and in otherwise good health. he is alert and oriented x 3. A skin exam was done of the face, neck, chest and back. Declines further exam today. Khan Skin Type: III IMPRESSION: Left scapula stuck on brown plaque Right chest stuck on brown plaque Right of midline upper back light brown firm sq nodule + dimple test A/P: (L82.1) Seborrheic keratosis (primary encounter diagnosis) Comment: Discussed etiology and educated. Reassured benign nature. Discussed that removal is generally considered cosmetic in nature and will incur a fee. Patient agrees and would like to proceed. Cryosurgery of non-malignant lesion(s) Risks, benefits, alternatives and personnel required for cryosurgery reviewed with patient. Pt verbalizes understanding and wishes to proceed. Derm Nurse Practitioner : Maria Elena Doty CNP Cryosurgery performed with Liquid Nitrogen via cryostat spray gun to Seborrheic Keratosis . 2 lesion(s) treated. Patient tolerated well. Wound care instructions provided, pt verbalizes understanding. COST CODE: FA (D23.9) Dermatofibroma Comment: Discussed etiology and educated. Reassured benign nature. Follow up in as needed. Maria Elena Doty CNP Attending: Dr. Higginbotham The documentation for this note was completed by Ara Velez acting as scribe for Maria Elena Doty APRN.CNP. April 30, 2018 11:08 AM. I agree with the Chief Complaint, ROS, and Past Histories independently gathered by the clinical media production support manager and the remaining scribed note accurately describes my personal service to the patient. Normal [facility] Vital Signs Date Time Vital Sign Value Performing Clinician Amanda delgado 05-18-2022 18:00-0500 Diastolic blood pressure 80 mm[Hg] MD Rebecca Workman Work Phone: [facility] 05-18-2022 18:00-0500 Heart rate 77 /min MD Rebecca Workman Work Phone: [facility] 05-18-2022 18:00-0500 Respiratory rate 18 /min MD Rebecca Workman Work Phone: [facility] 05-18-2022 18:00-0500 SaO2% (BldA) [Mass fraction] 99 % MD Rebecca Workman Work Phone: [facility] 05-18-2022 18:00-0500 Systolic blood pressure 133 mm[Hg] MD Rebecca Workman Work Phone: [facility] 05-18-2022 14:01-0500 Body height 177.8 cm MD Rebecca Workman Work Phone: [facility] 05-18-2022 14:01-0500 Body temperature 98.6 [degF] MD Rebecca Workman Work Phone: [facility] 05-18-2022 14:01-0500 Body weight 130.7 kg MD Rebecca Workman Work Phone: [facility] 04-02-2022 10:15-0500 Blood Pressure Location SARAH ALANIS [facility] 04-02-2022 10:15-0500 Diastolic blood pressure 80 mm[Hg] SARAH ALANIS [facility] 04-02-2022 10:15-0500 Heart rate 68 /min SARAH ALANIS [facility] 04-02-2022 10:15-0500 Systolic blood pressure 122 mm[Hg] SARAH ALANIS [facility] Encounters Encounter Date Encounter Type Care Provider Facility Start: 11-26-2023 End: 11-30-2023 Evaluation and management of inpatient MOHAMUD [facility] Start: 11-25-2023 End: 11-25-2023 ambulatory AMAR B MUTNAL Not Available Start: 11-25-2023 End: 11-26-2023 ambulatory AMAR MUTNAL [facility] Start: 11-18-2023 End: 11-22-2023 [facility] Start: 11-12-2023 End: 11-12-2023 ambulatory AMAR B MUTNAL Not Available Start: 11-04-2023 End: 11-04-2023 ambulatory REBECCA WORKMAN [facility] Start: 10-15-2023 End: 10-15-2023 ambulatory AMAR B MUTNAL Not Available Start: 09-17-2023 End: 09-17-2023 ambulatory REBECCA WORKMAN Not Available Start: 10-09-2022 ambulatory YVONNEHILTON KIRAN Facility:[facility] Start: 10-08-2022 ambulatory BERTHA Patel lity:[facility] Start: 09-17-2022 End: 09-18-2022 [facility] Start: 08-30-2022 End: 08-31-2022 ambulatory BERTHA Elias [facility] Facility:H1 Start: 08-23-2022 End: 08-24-2022 ambulatory BERTHA Elias [facility] Facility:H1 Start: 08-09-2022 End: 08-10-2022 ambulatory BERTHA Elias [facility] Facility:H1 Start: 07-30-2022 End: 07-31-2022 ambulatory BERTHA Elias [facility] Facility:H1 Start: 07-26-2022 End: 07-26-[address] ASHU SUN Facility:H1 Start: 07-23-2022 End: 07-24-2022 ambulatory BERTHA Elias [facility] Facility:H1 Start: 07-08-2022 End: 07-23-[address] DOCTOR PEREZ Facility:H1 Start: 05-30-2022 End: 05-31-2022 ambulatory SARAH ALANIS Facility:[facility] [place] Start: 05-20-2022 End: 05-21-2022 ambulatory Rebecca Workman Facility:[facility] Start: 05-18-2022 End: 05-18-2022 Emergency department patient visit MD Rebecca Workman Work Phone: [facility]-Emergency Room Work Phone: Start: 04-24-2022 End: 04-24-2022 ambulatory MD Rebecca Workman Work Phone: [facility] Work Phone: Start: 04-24-2022 End: 04-24-2022 Patient encounter procedure MD Rebecca Workman Work Phone: [facility]-Ultrasound [facility] [place] Start: 04-02-2022 End: 04-03-2022 ambulatory SARAH ALANIS Facility:[facility] [place] Start: 04-02-2022 End: 04-02-2022 Patient encounter procedure SARAH ALANIS [facility] Start: 2022 End: 2022 Patient encounter procedure MD Rebecca Workman Work Phone: [facility]-Electrodiagnostics Procedures Date Procedure Procedure Detail Performing Clinician Start: 05-18-2022 X-ray of left foot MD Maggy Workman Work Phone: Start: 04-24-2022 Duplex scan of lower limb veins MD Rebecca Workman Work Phone: Start: 12-22-2018 Back structure, excl uding neck (body structure) SARAH ALANIS Plan of Treatment Date Care Activity Detail Author Start: 05-18-2022 Duplex scan of lower limb veins US venous duplex LE LT [facility] Start: 05-18-2022 US Lower extremity v ein - left [facility] Start: 05-18-2022 Bacteria identified in Blood by Culture Blood Culture [facility] Start: 04-24-2022 Duplex scan of lower limb veins US venous duplex LE BI [facility] Start: 04-24-2022 US Lower extremity v ein - bilateral [facility] Patient Education Cellulitis (Sk in Infection), Adult (DC) [facility] Work Phone: Patient referral [facility] Work Phone: Payers Date Payer Category Payer Medicare [id number] 2022 Self-pay [id number] 1965 Unknown [id number] 2.16.840.1.247122.3.579.2.727 1963 Unknown [id number] 2.16.840.1.751871.3.579.2.727 1963 Unknown [id number] 2.16.840.1.413861.3.579.2.593 1963 Unknown [id number] 2.16.840.1.477116.3.579.2.593 1963 Unknown [id number] 2.16.840.1.846685.3.579.2.593 1963 Unknown [id number] 2.16.840.1.106634.3.579.2.593 1963 Unknown [id number] 2.16.840.1.246671.3.579.2.593 1963 Unknown [id number] 2.16.840.1.848565.3.579.2.593 1963 Unknown [id number] 2.16.840.1.208733.3.579.2.59 1963 Unknown [id number] 2.16.840.1.824249.3.579.2.593 1963 Unknown [id number] 2.16.840.1.398988.3.579.2.593 1963 Unknown [id number] 2.16.840.1.758789.3.579.2.593 1963 Unknown [id number] 2.16.840.1.251084.3.579.2.593 1963 Unknown [id number] 2.16.840.1.660148.3.579.2.1245 1963 Unknown [id number] 2.16.840.1.990397.3.579.2.1259 1963 Unknown [id number] 2.16.840.1.535232.3.579.2.1259 1963 Unknown [id number] 2.16.840.1.527129.3.579.2.1259 1963 Unknown [id number] 2.16.840.1.495089.3.579.2.1259 1963 Unknown [id number] 2.16.840.1.450818.3.579.2.1259 1963 Unknown [id number] 2.16.840.1.427765.3.579.2.1259 1963 Unknown [id number] 2.16.840.1.389928.3.579.2.1259 1963 Unknown [id number] 2.16.840.1.428605.3.579.2.182 1963 Unknown [id number] 2.16.840.1.311385.3.579.2.182 1963 Unknown [id number] 2.16.840.1.084701.3.579.2.182 1963 Unknown [id number] 2.16.840.1.096598.3.579.2.182 1959 Unknown [id number] 2.16.840.1.993141.3.579.2.531 Worker's Compensation [facility] [id number] Social History Date Type Detail Facility Start: 11-19-2018 End: 05-18-2022 Tobacco smoking status NHIS Never smoked tobacco (finding) [facility] Start: 1965 Sex Assigned At Male F [facility] Tobacco smoking status Never [facility] Sex Assigned At Male [facility] Functional Status Date Assessment Result Facility 04-02-2022 Functional Status N/A [facility] [place] Clinical Note 11-12-2023 Note Date & Type Note Facility 11-12-2023 Note FINDINGS: Severe right hip arthritis, minimal progression from September 17, 2023 for presurgical planning. IMPRESSION: Presurgical planning severe right hip arthritis. TRANSCRIBED BY: ELECTRONICALLY SIGNED BY: Jose Arias MD Not Available Clinical Note 07-23-2022 Note Date & Type Note Facility 07-23-2022 Note PROCEDURE: XR FOOT L T MIN 3 VIEWS HISTORY: Pain in left foot ; chronic left heel ulcer COMPARISON: None. FINDINGS: BONES:No fracture, acute abnormality, or significant arthropathy. SOFT TISSUES:Skin surface irregularity along posterior margin of heel likely corresponding to patient's ulcer. Edema within soft tissues. EFFUSION:None visible. OTHER: Negative. IMPRESSION: 1. Posterior heel wound/ulcer with prominent subcutaneous edema. No appreciable bone involvement. Electronically authenticated by: PIPO MACK Date: 2022-07-23 12:08 [facility] Discharge instructions 04-02-2022 Note Date & Type Note Facility 04-02-2022 Hospital Discharg e instructions Patient Education 04/02/2022 11:26:32 Erectile Dysfunction Erectile Dysfunction Erectile dysfunction (ED) is the inability to get or keep an erection in order to have sexual intercourse. Erectile dysfunction may include: Inability to get an erection. Lack of enough hardness of the erection to allow penetration. Loss of the erection before sex is finished. What are the causes? This condition may be caused by: Certain medicines, such as: ?Pain relievers. ?Antihistamines. ?Antidepressants. ?Blood pressure medicines. ?Water pills (diuretics). ?Ulcer medicines. ?Muscle relaxants. ?Drugs. Excessive drinking. Psychological causes, such as: ?Anxiety. ?Depression. ?Sadness. ?Exhaustion. ?Performance fear. ?Stress. Physical causes, such as: ?Artery problems. This may include diabetes, smoking, liver disease, or atherosclerosis. ?High blood pressure. ?Hormonal problems, such as low testosterone. ?Obesity. ?Nerve problems. This may include back or pelvic injuries, diabetes mellitus, multiple sclerosis, or Parkinson disease. What are the signs or symptoms? Symptoms of this condition include: Inability to get an erection. Lack of enough hardness of the erection to allow penetration. Loss of the erection before sex is finished. Normal erections at some times, but with frequent unsatisfactory episodes. Low sexual satisfaction in either partner due to erection problems. A curved penis occurring with erection. The curve may cause pain or the penis may be too curved to allow for intercourse. Never having nighttime erections. How is this diagnosed? This condition is often diagnosed by: Performing a physical exam to find other diseases or specific problems with the penis. Asking you detailed questions about the problem. Performing blood tests to check for diabetes mellitus or to measure hormone levels. Performing other tests to check for underlying health conditions. Performing an ultrasound exam to check for scarring. Performing a test to check blood flow to the penis. Doing a sleep study at home to measure nighttime erections. How is this treated? This condition may be treated by: Medicine taken by mouth to help you achieve an erection (oral medicine). Hormone replacement therapy to replace low testosterone levels. Medicine that is injected into the penis. Your health care provider may instruct you how to give yourself these injections at home. Vacuum pump. This is a pump with a ring on it. The pump and ring are placed on the penis and used to create pressure that helps the penis become erect. Penile implant surgery. In this procedure, you may receive: ?An inflatable implant. This consists of cylinders, a pump, and a reservoir. The cylinders can be inflated with a fluid that helps to create an erection, and they can be deflated after intercourse. ?A semi-rigid implant. This consists of two silicone rubber rods. The rods provide some rigidity. They are also flexible, so the penis can both curve downward in its normal position and become straight for sexual intercourse. Blood vessel surgery, to improve blood flow to the penis. During this procedure, a blood vessel from a different part of the body is placed into the penis to allow blood to flow around (bypass) damaged or blocked blood vessels. Lifestyle changes, such as exercising more, losing weight, and quitting smoking. Follow these instructions at home: Medicines Take [id number] and prescription medicines only as told by your health care provider. Do not increase the dosage without first discussing it with your health care provider. If you are using self-injections, perform injections as directed by your health care provider. Make sure to avoid any veins that are on the surface of the penis. After giving an injection, apply pressure to the injection site for 5 minutes. General instructions Exercise regularly, as directed by your health care provider. Work with your health care provider to lose weight, if needed. Do not use any products that contain nicotine or tobacco, such as cigarettes and e-cigarettes. If you need help quitting, ask your health care provider. Before using a vacuum pump, read the instructions that come with the pump and discuss any questions with your health care provider. Keep all follow-up visits as told by your health care provider. This is important. Contact a health care provider if: You feel nauseous. You vomit. Get help right away if: You are taking oral or injectable medicines and you have an erection that lasts longer than 4 hours. If your health care provider is unavailable, go to the nearest emergency room for evaluation. An erection that lasts much longer than 4 hours can result in permanent damage to your penis. You have severe pain in your groin or abdomen. You develop redness or severe swelling of your penis. You have redness spreading up into your groin or lower abdomen. You are unable to urinate. You experience chest pain or a rapid heart beat (palpitations) after taking oral medicines. Summary Erectile dysfunction (ED) is the inability to get or keep an erection during sexual intercourse. This problem can usually be treated successfully. This condition is diagnosed based on a physical exam, your symptoms, and tests to determine the cause. Treatment varies depending on the cause, and may include medicines, hormone therapy, surgery, or vacuum pump. You may need follow-up visits to make sure that you are using your medicines or devices correctly. Get help right away if you are taking or injecting medicines and you have an erection that lasts longer than 4 hours. This information is not intended to replace advice given to you by your health care provider. Make sure you discuss any questions you have with your health care provider. Document Released: 04/25/2001 Document Revised: 04/10/2018 Document Reviewed: 05/14/2017 [employer] Patient Education 2020 [employer]. Follow Up Care 03/25/2022 13:35:31 With:SARAH ALANIS PA-C, URL Address: [address] [place], [place] [address]rios Garcia [facility] [place] [address] Business (1) When:6 weeks [facility] Evaluation + Plan note Note Date & Type Note Facility Evaluation + Plan note Future Appointments Appointment Date:05/30/2022 11:15:00 AM Scheduled Provider:SARAH ALANIS PA-C Location:[facility] [place] Appointment Type:URO Office Visit [facility] Evaluation note Note Date & Type Note Facility Evaluation note No assessment information availa [facility] Work Phone: Hospital course Narrative Note Date & Type Note Facility Hospital course Narrative No data available for this section [facility] Hospital Discharge instructions Note Date & Type Note Facility Hospital Discharge instructions Additional Instructions Come back to the infusion center twice on Friday and twice on Friday. Call [facility] on Friday morning. Keep the wound clean dry and covered at all times. [facility] Work Phone: Progress note Note Date & Type Note Facility Progress note No data available for this section [facility] Summary Purpose Family History No Family History Records FoundNo Family History Records FoundNo Family History Records FoundNo Family History Records FoundNo Family History Records FoundNo Family History Records FoundNo Family History Records FoundNo Family History Records Found Advance Directives No Advanced Directives Records Found Advance Directive Response Recorded Date/ Time Advance Directives No November 19 10:36am Advance Directive Response Recorded Date/ Time Advance Directives No November 19 9:36am Chief Complaint and Reason for Visit Chief Complaint R32;I10;G95.9;E78.00 ;E66.01 Chief Complaint R32;I10;G95.9;E78.00 ;E66.01 m79.89 m79.605 Chief Complaint m79.89 m79.605 lt foot swollen, inj @ home Additional Source Comments (unrecognized sect ion and content) No Status Records FoundNo Status Records FoundNo Status Records FoundNo Status Records FoundNo Status Records FoundNo Status Records FoundNo Status Records FoundNo Status Records Found INFORMATION SOURCE (unrecogn ized section and content) DATE CREATED AUTHOR 12/08/2018 [facility] DATE CREATED AUTHOR AUTHOR'S ORGANIZ ATION 02/14/2021 [facility] DATE CREATED AUTHOR AUTHOR'S ORGANIZ ATION 06/05/2022 [facility] DATE CREATED AUTHOR AUTHOR'S ORGANIZ ATION 10/21/2022 [facility] DATE CREATED AUTHOR AUTHOR'S ORGANIZ ATION 05/26/2023 [facility] DATE CREATED AUTHOR AUTHOR'S ORGANIZ ATION 11/09/2023 [facility] DATE CREATED AUTHOR AUTHOR'S ORGANIZ ATION 11/29/2023 [facility] DATE CREATED AUTHOR AUTHOR'S ORGANIZ ATION 12/02/2023 [facility] Care Teams (unrecognized sec tion and content) Team Status: Inactive Member Role Status Dates Rebecca Workman MD Primary Care Provider, At tending Provider Active Team Status: Active Member Role Status Dates Rebecca Workman MD Primary Care Provider Act eddie Team Status: Inactive Member Role Status Dates Rebecca Workman MD Primary Care Provider Act eddie Thom Crabtree APRN Emergency Provider Active Goals (unrecognized section and content) Goals may be documented in a n alternate section No data available for this sectionGoals may be documented in an alternate sectionGoals may be documented in an alternate sectionGoals may be documented in an alternate section FOR RECORDS PERTAINING TO PATIENTS WHO ARE OR HAVE BEEN ENROLLED IN A CHEMICAL DEPENDENCY/SUBSTANCEABUSE PROGRAM, SOME INFORMATION MAY BE OMITTED. This clinical summary was aggregated from multiple sources. Caution should be exercised in using it in the provision of clinical care. This summary normalizes information from multiple sources, and as a consequence, information in this document may materially change the coding, format and clinical context of patient data. In addition, data may be omitted in some cases. CLINICAL DECISIONS SHOULD BE BASED ON THE PRIMARY CLINICAL RECORDS. [facility] [employer] [facility]. provides no warranty or guarantee of the accuracy or completeness of information in this document.
== END 2023-12-08 16:56 | disposition home or self-care (01) ==
LOC: US 16:56
DX: I87.2 Venous insufficiency (chronic) (peripheral) (principal); R60.0 Localized edema
CPT/HCPCS: 93970

== ENCOUNTER 2023-12-25 13:01 | Outpatient (RCR) | payer OTHER, MEDICARE, SELFPAY | END 2024-01-03 16:49 | disposition home or self-care (01) | LOC: PT 13:01 | DX: Z47.1 Aftercare following joint replacement surgery (principal); Z96.641 Presence of right artificial hip joint | CPT/HCPCS: 97110; 97112; 97162 ==

== ENCOUNTER 2024-01-02 09:43 | Outpatient (OUT) | payer OTHER, MEDICARE, SELFPAY ==
--- OUTSIDE RECORDS SUMMARY | 2024-01-02 10:03 | XMS_ITS | CCD ---
Author Organization [facility] Care Team Providers Care Activities Counselor Name Role Phone MD Rebecca Workman Primary Care Provide r MD Rebecca Workman Attending Provider KRANTHI MCPHERSON Primary Care Physician [phone] MD Rebecca Workman Primary Care Provide r MD Rebecca Workman Attending Provider MD Rebecca Workman Primary Care Provide r MD Rebecca Workman Attending Provider IDA [facility] Provider [phone] SARAH ALANIS Attending Unavailable SARAH ALANIS Attending [...] NONE LISTED Primary Care Unavaila ble MISC, DOCTOR Attending Unavailable MISC, DR BERNARD Admitting Unavailable REQUEST, NONE LISTED Primary Care Unavaila ble REQUEST, NONE LISTED Primary Care Unavaila ble MISC, DR BERNARD Attending Unavailable MISC, DR BERNARD Consulting Unavailable MISC, DR BERNARD Admitting Unavailable MAGNO, YVONNE Attending Unavailable MAGNO, YVONNE Admitting Unavailable GRECHNY ., MARY ELLEN REYNAGA Consulting Unavailabl e REQUEST, NONE LISTED Primary Care Unavaila ble Hause-Wardega, Rebecca Primary Care Unavail able Leyda, Thom Attending Unavailable Leyda, Thom Admitting Unavailable MUTNAL, AMAR Admitting Unavailable MUTNAL, AMAR Attending Unavailable WARDEGA, REBECCA Primary Care Unavailable JOSE YIP Consulting Unavailable MUTNAL, AMAR Referring Unavailable WARDEGA, REBECCA Primary Care Unavailable MUTNAL, AMAR Attending Unavailable MUTNAL, AMAR Referring Unavailable WARDEGA, REBECCA Primary Care Unavailable SCULLIN, MOHAMUD Admitting Unavailable SCULLIN, MOHAMUD Attending Unavailable WARDEGA, REBECCA Primary Care Unavailable AVIVA MCGINNIS Consulting Unavailable DINESH BURRELL Consulting Unavailable MUTNAL, AMAR Consulting Unavailable HAUSE-WARDEGA, REBECCA K Referring Unava ilable MUTNAL, AMAR B Attending Unavailable MUTNAL, AMAR B Attending Unavailable HAUSE-WARDEGA, REBECCA K Attending Unava ilable MUTNAL, AMAR B Referring Unavailable MUTNAL, AMAR B Attending Unavailable MUTNAL, AMAR B Attending Unavailable HAUSE-WARDEGA, REBECCA K Attending Unava ilable MUTNAL, AMAR B Attending Unavailable MUTNAL, AMAR B Attending Unavailable Allergies Allergy Classification Reported Allergen(s) Allergy Type Date of Onset Reaction(s) Facility Unclassified (1 source) ALLERGIES NOT ON FILE; Translations: [ALLERGIES NOT ON FILE] Propensity to adverse reactions (disorder) [facility] Repository (1 source) No Known Medication Allergies; Translations: [No Known Medication Allergies] Propensity to adverse reactions (disorder) [facility] Repository Medications Current Medications Medication Drug Class(es) [...] 11-27-2023 Bilirubin Ql (U) Negative Normal Negative [facility] Comment on above: Performed By: #### U AR #### [facility] [address] [place] [address] Clarity (U) Clear Normal Clear [facility] Comment on above: Performed By: #### U AR #### [facility] [address] [place] [address] Color (U) Yellow Normal Straw/[place] [facility] Comment on above: Performed By: #### U AR #### [facility] [address] [place] [address] Glucose Ql (U) Negative Normal Negative [facility] Comment on above: Performed By: #### U AR #### [facility] [address] [place] [address] Hemoglobin Ql (U) Negative Normal Negative [facility] Comment on above: Performed By: #### U AR #### [facility] [address] [place] [address] Ketones Ql (U) Negative Normal Negative [facility] Comment on above: Performed By: #### U AR #### [facility] [address] [place] [address] Leukocyte esterase Test strip Ql (U) Negative Normal Negative [facility] Comment on above: Performed By: #### U AR #### [facility] [address] [place] [address] Nitrite Ql (U) Negative Normal Negative [facility] Comment on above: Performed By: #### U AR #### [facility] [address] [place] [address] pH (U) 5.5 [pH] Normal 5.0-9.0 [facility] Comment on above: Performed By: #### U AR #### [facility] [address] [place] [address] Protein Ql (U) Negative Normal Negative [facility] Comment on above: Performed By: #### U AR #### [facility] [address] [place] [address] Specific gravity (U) [Rel density] 1.014 Normal 1.005-1.03 [facility] Comment on above: Performed By: #### U AR #### [facility] [address] [place] [address] Urine Reflexed to Culture Not Indicated Normal [facility] Comment on above: Performed By: #### U AR #### [facility] [address] [place] [address] Urobilinogen Qn (U) 1.0 {Denisa'U}/dL Normal < 2.0 [facility] Comment on above: Performed By: #### U AR #### [facility] [address] [place] [address] Basic Metabolic Panel Reflex Mgon 11-26-2023 Anion gap [Moles/Vol] 11 mmol/L Normal 9-15 [facility] Comment on above: Performed By: #### B MPX #### [facility] [address] [place] [address] Calcium [Mass/Vol] 7.9 mg/dL Low 8.5-9.9 [facility] Comment on above: Performed By: #### B MPX #### [facility] [address] [place] [address] Chloride [Moles/Vol] 98 mmol/L Normal 95-107 [facility] Comment on above: Performed By: #### B MPX #### [facility] [address] [place] [address] CO2 [Moles/Vol] 23 mmol/L Normal 20-31 [facility] Comment on above: Performed By: #### B MPX #### [facility] [address] [place] [address] Creatinine [Mass/Vol] 1.16 mg/dL Normal 0.70-1.20 [facility] Comment on above: Performed By: #### B MPX #### [facility] [address] [place] [address] GFR 71.7 Normal >60 [facility] Comment on above: Result Comment: Sarahi atric calculator link https://www.kidney.org/professionals/kdoqi/gfr_calculatorped Effective Feb 11, [...] secretion. Performed By: #### B MPX #### [facility] [address] [place] [address] Glucose [Mass/Vol] 128 mg/dL Critically high 70-99 [facility] Comment on above: Performed By: #### B MPX #### [facility] [address] [place] [address] Magnesium [Moles/Vol] 4.7 mmol/L Normal 3.4-4.9 [facility] Comment on above: Performed By: #### B MPX #### [facility] [address] [place] [address] Sodium [Moles/Vol] 132 mmol/L Low 135-144 [facility] Comment on above: Performed By: #### B MPX #### [facility] [address] [place] [address] Urea nitrogen [Mass/Vol] 28 mg/dL Critically high 8-23 [facility] Comment on above: Performed By: #### B MPX #### [facility] [address] [place] [address] CBC With Platelet No Differe ntialon 11-26-2023 Erythrocyte distribution width (RBC) [Ratio] 15.1 % Critically high 11.5-14.5 [facility] Comment on above: Performed By: #### C BCND #### [facility] [address] [place] [address] Hematocrit (Bld) [Volume fraction] 30.8 % Low 42.0-52.0 [facility] Comment on above: Performed By: #### C BCND #### [facility] [address] [place] [address] Hemoglobin (Bld) [Mass/Vol] 10.2 g/dL Low 14.0-18.0 [facility] Comment on above: Performed By: #### C BCND #### [facility] [address] [place] [address] MCH (RBC) [Entitic mass] 29.1 pg Normal 27.0-31.3 [facility] Comment on above: Performed By: #### C BCND #### [facility] [address] [place] [address] MCHC 33.1 % Normal 33.0-37.0 [facility] Comment on above: Performed By: #### C BCND #### [facility] [address] [place] [address] MCV (RBC) [Entitic vol] 88.0 fL Normal 79.0-92.2 [facility] Comment on above: Performed By: #### C BCND #### [facility] [address] [place] [address] Platelets (Bld) [#/Vol] 253 10*3/uL Normal 130-400 [facility] Comment on above: Performed By: #### C BCND #### [facility] [address] [place] [address] RBC (Bld) [#/Vol] 3.50 10*6/uL Low 4.70-6.10 [facility] Comment on above: Performed By: #### C BCND #### [facility] [address] [place] [address] WBC (Bld) [#/Vol] 14.9 10*3/uL Critically high 4.8-10.8 [facility] Comment on above: Performed By: #### C BCND #### [facility] [address] [place] [address] FLUORO FOR SURGICAL PROCEDUR ESon 11-25-2023 FLUORO [...] Kranthi Muñoz MD 11/25/23 Final result Normal [facility] XR PELVIS (1-2 VIEWS)on 11-09 XR [...] Kranthi Muñoz MD 11/25/23 Final result Normal [facility] Type and Screen Capture 3 sc rn cellon 11-18-2023 Type and Screen Capture 3 scrn cell PATIENT: LUIS PRESSLEY LOC: [facility] BILL# : [id number] : 1965 SEX: M ORDERED BY: YVETTE Akins ORDERED : 11/18/2023 16:16 COLLECTED: 11/18/2023 16:51 ORDER : [id number] RECEIVED : 11/18/2023 16:51 --- TEST NAME RESULT UNITS RANGES ABN FL ST ABORH Capture A POS F Antibody 3 Cell Scrn Captu NEG F -- Normal [facility] Comment on above: Performed By: #### T S3C #### [facility] [address] [place] [address] XR CHEST (SINGLE VIEW FRONTA L)on 11-18-2023 [...] IMPRESSION: No acute process. Interpreted by: Ayana Espinoza MD Signed by: Ayana Espinoza MD 11/18/23 Final result Normal [facility] Basic metabolic 2000 panelon 11-04-2023 Anion gap [Moles/Vol] 8 mmol/L Low 10-20 [facility] Comment on above: Performed By: #### 2 4321-2 #### NUPUR KOWALSKI ([id number]) [facility] ([facility]) [address] [place] [address] Calcium [Mass/Vol] 8.9 mg/dL Normal 8.6-10.3 [facility] Comment on above: Performed By: #### 2 4321-2 #### NUPUR KOWALSKI ([id number]) [facility] [address] [place] [address] Chloride [Moles/Vol] 104 mmol/L Normal 98-107 [facility] Comment on above: Performed By: #### 2 4321-2 #### NUPUR KOWALSKI ([id number]) [facility] [address] [place] [address] CO2 [Moles/Vol] 29 mmol/L Normal 21-32 [facility] Comment on above: Performed By: #### 2 432-2 #### NUPUR KOWALSKI ([id number]) [facility] [address] [place] [address] Creatinine [Mass/Vol] 0.98 mg/dL Normal 0.50-1.30 [facility] Comment on above: Performed By: #### 2 4320-2 #### NUPUR KOWALSKI ([id number]) [facility] ([facility]) [address] [place] [address] Glomerular filtration rate/1.73 sq M.predicted 88 mL/min/1.73m*2 Normal >60 [facility] Comment on above: Result Comment: Calc ulations of estimated GFR are performed using the 2020 CKD-EPI Study Refit equation without the race variable for the IDMS-Traceable creatinine methods. https://jasn.asnjournals.org/content/early//ASN.48587 21746 Performed By: #### 2 4320-2 #### NUPUR KOWALSKI ([id number]) [facility]) [address] [place] [address] Glucose [Mass/Vol] 95 mg/dL Normal 74-99 [facility] Comment on above: Performed By: #### 2 4320-2 #### NUPUR KOWALSKI ([id number]) [facility] [address] [place] [address] Potassium [Moles/Vol] 4.8 mmol/L Normal 3.5-5.3 [facility] Comment on above: Performed By: #### 2 432-2 #### NUPUR KOWALSKI ([id number]) [facility] [address] [place] [address] Sodium [Moles/Vol] 136 mmol/L Normal 136-145 [facility] Comment on above: Performed By: #### 2 4321-2 #### NUPUR KOWALSKI ([id number]) [facility] [address] [place] [address] Urea nitrogen [Mass/Vol] 15 mg/dL Normal 6-23 [facility] Comment on above: Performed By: #### 2 4321-2 #### NUPUR KOWALSKI ([id number]) [facility]) [address] [place] [address] Blood type and Indirect anti body screen panel (Bld)on 11-04-2023 ABO group Nom (Bld) A Normal [facility] Comment on above: Performed By: #### 3 4532-2 #### ANNE-MARIE Crane ([id number]) [facility] ([facility]) [address] [place] [address] Blood group antibody screen Ql Negative [facility] Comment on above: Performed By: #### 3 4532-2 #### ANNE-MARIE Crane ([id number]) [facility] ([facility] [address] [place] [address] D Ag Ql (Bld) Positive [facility] Comment on above: Result Comment: 2nd ABO test required. Order and Collect VERAB Performed By: #### 3 4532-2 #### ANNE-MARIE Crane ([id number]) [facility] ([facility]) [address] [facility] [facility] [place] [address] CBC W Auto Differential pane l (Bld)on 11-04-2023 Basophils (Bld) [#/Vol] 0.03 x10*3/uL Normal 0.00-0.10 [facility] Comment on above: Performed By: #### 5 7021-8 #### NUPUR KOWALSKI ([id number]) [facility]) [address] [place] [address] Basophils/100 WBC (Bld) 0.3 % Normal 0.0-2.0 [facility] Comment on above: Performed By: #### 5 7021-8 #### NUPUR KOWALSKI ([id number]) [facility] ([facility]) [address] [place] [address] Eosinophils (Bld) [#/Vol] 0.12 x10*3/uL Normal 0.00-0.70 [facility] Comment on above: Performed By: #### 5 7021-8 #### NUPUR KOWALSKI ([id number]) [facility] ([facility]) [address] [place] [address] Eosinophils/100 WBC (Bld) 1.4 % Normal 0.0-6.0 [facility] Comment on above: Performed By: #### 5 7021-8 #### NUPUR KOWALSKI ([id number]) [facility] ([facility]) [address] [place] [address] Erythrocyte distribution width (RBC) [Ratio] 14.6 % High 11.5-14.5 [facility] Comment on above: Performed By: #### 5 7021-8 #### NUPUR KOWALSKI ([id number]) [facility] ([facility]) [address] [place] [address] Hematocrit (Bld) [Volume fraction] 41.8 % Normal 41.0-52.0 [facility] Comment on above: Performed By: #### 5 7021-8 #### NUPUR KOWALSKI ([id number]) [facility] ([facility]) [address] [place] [address] Hemoglobin (Bld) [Mass/Vol] 13.6 g/dL Normal 13.5-17.5 [facility] Comment on above: Performed By: #### 5 7021-8 #### NUPUR KOWALSKI ([id number]) [facility] ([facility]) [address] [place] [address] Immature granulocytes (Bld) [#/Vol] 0.04 x10*3/uL Normal 0.00-0.70 [facility] Comment on above: Performed By: #### 5 7021-8 #### NUPUR KOWALSKI ([id number]) [facility] ([facility]) [address] [place] [address] Immature granulocytes/100 WBC (Bld) 0.5 % Normal 0.0-0.9 [facility] Comment on above: Result Comment: Juany ture Granulocyte Count (IG) includes promyelocytes, myelocytes and metamyelocytes but does not include bands. Percent differential counts (%) should be interpreted in the context of the absolute cell counts (cells/UL). Performed By: #### 5 7021-8 #### NUPUR KOWALSKI ([id number]) [facility] ([facility]) [address] [place] [address] Lymphocytes (Bld) [#/Vol] 1.96 x10*3/uL Normal 1.20-4.80 [facility] Comment on above: Performed By: #### 5 7021-8 #### NUPUR KOWALSKI ([id number]) [facility] ([facility]) [address] [place] [address] Lymphocytes/100 WBC (Bld) 22.1 % Normal 13.0-44.0 [facility] Comment on above: Performed By: #### 5 7021-8 #### NUPUR KOWALSKI ([id number]) [facility] ([facility]) [address] [place] [address] MCH (RBC) [Entitic mass] 29.1 pg Normal 26.0-34.0 [facility] Comment on above: Performed By: #### 5 7021-8 #### NUPUR KOWALSKI ([id number]) [facility] ([facility]) [address] [place] [address] MCHC (RBC) [Mass/Vol] 32.5 g/dL Normal 32.0-36.0 [facility] Comment on above: Performed By: #### 5 7021-8 #### NUPUR KOWALSKI ([id number]) [facility] ([facility]) [address] [place] [address] MCV (RBC) [Entitic vol] 90 fL Normal 80-100 [facility] Comment on above: Performed By: #### 5 7021-8 #### NUPUR KOWALSKI ([id number]) [facility] ([facility]) [address] [place] [address] Monocytes (Bld) [#/Vol] 0.68 x10*3/uL Normal 0.10-1.00 [facility] Comment on above: Performed By: #### 5 7021-8 #### NUPUR KOWALSKI ([id number]) [facility] ([facility]) [address] [place] [address] Monocytes/100 WBC (Bld) 7.7 % Normal 2.0-10.0 [facility] Comment on above: Performed By: #### 5 7021-8 #### NUPUR KOWALSKI ([id number]) [facility] ([facility]) [address] [place] [address] Neutrophils (Bld) [#/Vol] 6.05 x10*3/uL Normal 1.20-7.70 [facility] Comment on above: Result Comment: Perc ent differential counts (%) should be interpreted in the context of the absolute cell counts (cells/uL). Performed By: #### 5 7021-8 #### NUPUR KOWALSKI ([id number]) [facility] ([facility]) [address] [place] [address] Neutrophils/100 WBC (Bld) 68.0 % Normal 40.0-80.0 [facility] Comment on above: Performed By: #### 5 7021-8 #### NUPUR KOWALSKI ([id number]) [facility] ([facility]) [address] [place] [address] Nucleated RBC/100 WBC (Bld) [Ratio] 0.0 /100 WBCs Normal 0.0-0.0 [facility] Comment on above: Performed By: #### 5 7021-8 #### NUPUR KOWALSKI ([id number]) [facility] ([facility]) [address] [place] [address] Platelets (Bld) [#/Vol] 296 x10*3/uL Normal 150-450 [facility] Comment on above: Performed By: #### 5 7021-8 #### NUPUR KOWALSKI ([id number]) [facility] [address] [place] [address] RBC (Bld) [#/Vol] 4.67 x10*6/uL Normal 4.50-5.90 [facility] Comment on above: Performed By: #### 5 7021-8 #### NUPUR KOWALSKI ([id number]) [facility] [address] [place] [address] WBC (Bld) [#/Vol] 8.9 x10*3/uL Normal 4.4-11.3 [facility] Comment on above: Performed By: #### 5 7021-8 #### NUPUR KOWALSKI ([id number]) [facility] ([facility]) [address] [place] [address] Coagulation tissue factor in ducedon 11-04-2023 PT Coag (PPP) [Time] 11.5 s Normal 9.8-12.8 [facility] Comment on above: Performed By: #### 5 902-2 #### NUPUR KOWALSKI ([id number]) [facility] ([facility]) [address] [place] [address] Hepatic function 2000 panelo n 11-04-2023 Albumin BCP dye [Mass/Vol] 4.0 g/dL Normal 3.4-5.0 [facility] Comment on above: Performed By: #### 2 4325-3 #### NUPUR KOWALSKI ([id number]) [facility] [address] [place] [address] ALP [Catalytic activity/Vol] 91 U/L Normal 33-136 [facility] Comment on above: Performed By: #### 2 4325-3 #### NUPUR KOWALSKI ([id number]) [facility] ([facility]) [address] [place] [address] ALT With P-5'-P [Catalytic activity/Vol] 17 U/L Normal 10-52 [facility] Comment on above: Result Comment: Bettye ents treated with Sulfasalazine may generate falsely decreased results for ALT. Performed By: #### 2 4325-3 #### NUPUR KOWALSKI ([id number]) [facility] [address] [place] [address] AST With P-5'-P [Catalytic activity/Vol] 16 U/L Normal 9-39 [facility] Comment on above: Performed By: #### 2 4325-3 #### NUPUR KOWALSKI ([id number]) [facility] [address] [place] [address] Bilirubin [Mass/Vol] 0.6 mg/dL Normal 0.0-1.2 [facility] Comment on above: Performed By: #### 2 4325-3 #### NUPUR KOWALSKI ([id number]) [facility] ([facility]) [address] [place] [address] Bilirubin.direct [Mass/Vol] 0.1 mg/dL Normal 0.0-0.3 [facility] Comment on above: Performed By: #### 2 4325-3 #### NUPUR KOWALSKI ([id number]) [facility] ([facility]) [address] [place] [address] Protein [Mass/Vol] 6.7 g/dL Normal 6.4-8.2 [facility] Comment on above: Performed By: #### 2 4325-3 #### NUPUR KOWALSKI ([id number]) [facility] ([facility]) [address] [place] [address] Iron and Iron binding capaci ty panelon 11-04-2023 Iron [Mass/Vol] 47 ug/dL Normal 35-150 [facility] Comment on above: Performed By: #### 5 0190-8 #### NUPUR KOWALSKI ([id number]) [facility] ([facility]) [address] [place] [address] Iron binding capacity [Mass/Vol] 302 ug/dL Normal 240-445 [facility] Comment on above: Performed By: #### 5 0190-8 #### NUPUR KOWALSKI ([id number]) [facility] [address] [place] [address] Iron binding capacity.unsaturated [Mass/Vol] 255 ug/dL Normal 110-370 [facility] Comment on above: Performed By: #### 5 0190-8 #### NUPUR KOWALSKI ([id number]) [facility] [address] [place] [address] Iron saturation [Mass fraction] 16 % Low 25-45 [facility] Comment on above: Performed By: #### 5 0190-8 #### NUPUR KOWALSKI ([id number]) [facility] [address] [place] [address] Lipid 1996 panelon 4 Cholesterol [Mass/Vol] 135 mg/dL Normal 0-199 [facility] Comment on above: Result Comment: Age [...] By: #### 2 4331-1 #### NUPUR KOWALSKI ([id number]) [facility] [address] [place] [address] Cholesterol in HDL [Mass/Vol] 34.6 mg/dL Normal [facility] Comment on above: Result Comment: Age Very Low Low Normal High 0-19 Y < 35 < 40 40-45 ---- 20-24 Y ---- < 40 >45 ---- >24 Y ---- < 40 40-60 >60 Performed By: #### 2 4331-1 #### NUPUR KOWALSKI ([id number]) [facility] [address] [place] [address] Cholesterol in LDL [Mass/Vol] 65 mg/dL Normal <=99 [facility] Comment on above: Result Comment: Near Borderline AGE Desirable Optimal High High Very High 0-19 Y 0 - 109 --- 110-129 >/= 130 ---- 20-24 Y 0 - 119 --- 120-159 >/= 160 ---- >24 Y 0 - 99 100-129 130-159 160-189 >/=190 Performed By: #### 2 4331-1 #### NUPUR KOWALSKI ([id number]) [facility] [address] [place] [address] Cholesterol in VLDL [Mass/Vol] 35 mg/dL Normal 0-40 [facility] Comment on above: Performed By: #### 2 4331-1 #### NUPUR KOWALSKI ([id number]) [facility]) [address] [place] [address] CHOLESTEROL/HDL RATIO 3.9 Normal [facility] Comment on above: Result Comment: Ref Values Desirable < 3.4 High Risk > 5.0 Performed By: #### 2 4331-1 #### NUPUR KOWALSKI ([id number]) [facility]) [address] [place] [address] NON HDL CHOLESTEROL 100 mg/dL Normal 0-149 [facility] Comment on above: Result Comment: Age Desirable Borderline High High Very High 0-19 Y 0 - 119 120 - 144 >/= 145 >/= 160 20-24 Y 0 - 149 150 - 189 >/= 190 ---- >24 Y 30 mg/dL above LDL Cholesterol goal Performed By: #### 2 4331-1 #### NUPUR KOWALSKI ([id number]) [facility] [address] [place] [address] Triglyceride [Mass/Vol] 176 mg/dL High 0-149 [facility] Comment on above: Result Comment: [...] By: #### 2 4331-1 #### NUPUR KOWALSKI ([id number]) [facility]) [address] [place] [address] PSA, TOTAL AND FREEon 2023 Free PSA [Mass/Vol] 0.2 ng/mL Normal [facility] Comment on above: Performed By: #### P SAFT #### [employer]) ([id number]) [address] [place] [address] Free PSA/Total PSA [Mass fraction] 22 % Normal [facility] Comment on above: Result Comment: INTE RPRETIVE INFORMATION: Prostate Specific Antigen, Free Percentage [employer] uses the Answerology Free PSA electrochemiluminescent immunoassay method in conjunction with the Answerology PSA electrochemiluminescent immunoassay method to determine the [...] prostate cancer in individual patients. Performed By: [employer] 500 [place] [address] Machine Shop Instructor: Smooth Hallman MD, PhD CLIA Number: [id number] Performed By: #### P SAFT #### [facility]) ([id number]) [address] [place] [address] Prostate specific Ag IA [Mass/Vol] 0.9 ng/mL Normal 0.0-4.0 [facility] Comment on above: Result Comment: [...] carcinoma. Performed By: #### P SAFT #### [facility] ([id number]) [address] [place] [address] PT Coag (PPP) [Time]on 11-03 INR Coag (PPP) [Relative time] 1.0 Normal 0.9-1.1 [facility] Comment on above: Performed By: #### 5 902-2 #### NUPUR KOWALSKI ([id number]) [facility] ([facility]) [address] [id number] Thyrotropinon 11-04-2023 TSH Qn 2.05 m[IU]/L Normal 0.44-3.98 [facility] Comment on above: Order Comment: TSH t esting is performed using different testing methodology at [facility] ([facility])[3] than at other legacy [facility]. Direct result comparisons should only be made within the same method. Performed By: #### 3 016-3 #### NUPUR KOWALSKI ([id number]) [facility] ([facility]) [address] [place] [address] Urinalysis complete panel (U )on 11-04-2023 Appearance (U) Clear Normal Clear [facility] Comment on above: Performed By: #### 2 4356-8 #### NUPUR KOWALSKI ([id number]) [facility] ([facility]) [address] [place] [address] Bilirubin (U) [Mass/Vol] Negative Normal NEGATIVE [facility] Comment on above: Performed By: #### 2 4356-8 #### NUPUR KOWALSKI ([id number]) [facility] ([facility]) [address] [place] [address] Color (U) Light-Yellow Normal Light-Yello w, Yellow, Dark-Yellow [facility] Comment on above: Performed By: #### 2 4356-8 #### NUPUR KOWALSKI ([id number]) [facility] ([facility]) [address] [place] [address] Glucose Auto test strip (U) [Mass/Vol] Normal Normal Normal [facility] Comment on above: Performed By: #### 2 435-8 #### NUPUR KOWALSKI ([id number]) [facility] ([facility]) [address] [place] [address] Ketones (U) [Mass/Vol] Negative Normal NEGATIVE [facility] Comment on above: Performed By: #### 2 435-8 #### NUPUR KOWALSKI ([id number]) [facility] ([facility]) [address] [place] [address] Leukocyte esterase Auto test strip Ql (U) Negative Normal NEGATIVE [facility] Comment on above: Performed By: #### 2 435-8 #### NUPUR KOWALSKI ([id number]) [facility] ([facility]) [address] [place] [address] Nitrite Auto test strip Ql (U) Negative Normal NEGATIVE [facility] Comment on above: Performed By: #### 2 435-8 #### NUPUR KOWALSKI ([id number]) [facility] ([facility]) [address] [place] [address] pH (U) 6.5 [pH] Normal 5.0, 5.5, 6.0, 6.5, 7.0, 7.5, 8.0 [facility] Comment on above: Performed By: #### 2 4356-8 #### NUPUR KOWALSKI ([id number]) [facility] ([facility]) [address] [place] [address] Protein (U) [Mass/Vol] Negative Normal NEGAT EDDIE, 10 (TRACE), 20 (TRACE) [facility] Comment on above: Performed By: #### 2 4356-8 #### NUPUR KELLYFRI ([id number]) [facility] ([facility]) [address] [place] [address] RBC (U) [#/Vol] Negative Normal NEGATIVE [facility] Comment on above: Performed By: #### 2 4356-8 #### NUPUR LEWISI ([id number]) [facility] ([facility]) [address] [place] [address] Specific gravity (U) [Rel density] 1.012 Normal 1.005-1.035 [facility] Comment on above: Performed By: #### 2 4356-8 #### NUPUR LEWISI ([id number]) [facility] ([facility]) [address] [place] [address] Urobilinogen (U) [Mass/Vol] Normal Normal Normal [facility] Comment on above: Performed By: #### 2 4356-8 #### NUPUR LEWISI ([id number]) [facility] ([facility]) [address] [place] [address] XR HIP 4+ VW RIGHTon 024 XR [...] AYANA ZUÑIGA Date: 2022-10-09 20:00 Normal [facility] CBC AUTO DIFFon 07-26-2022 BASO # 0.1 103/ul Normal 0.0-0.1 [facility] Comment on above: Performed By: #### C BC #### [facility] [address] [address] [address] Darien Mason Basophils/100 WBC (Bld) 0.5 % Normal 0.2-2.0 [facility] Comment on above: Performed By: #### C BC #### [facility] [address] [place] [address] Dr. Darien Mason EO # 0.2 103/ul Normal 0.0-0.7 [facility] Comment on above: Performed By: #### C BC #### [facility] [address] [address] [address] Darien Mason Eosinophils/100 WBC (Bld) 2.2 % Normal 0.9-7.0 [facility] Comment on above: Performed By: #### C BC #### [facility] [address] [place] [address] Dr. Darien Mason Erythrocyte distribution width (RBC) [Ratio] 15.9 % Critically high 11.0-15.0 [facility] Comment on above: Performed By: #### C BC #### [facility] [address] [place] [address] Dr. Darien Mason Hematocrit (Bld) [Volume fraction] 37.7 % Critically low 42.0-54.0 [facility] Comment on above: Performed By: #### C BC #### [facility] [address] [place] [address] Dr. Darien Mason Hemoglobin (Bld) [Mass/Vol] 11.3 g/dL Critically low 14.0-18.0 [facility] Comment on above: Performed By: #### C BC #### [facility] [address] [place] [address] Dr. Darien Mason IG # 0.10 10e3/ul Critically high 0.00-0.03 [facility] Comment on above: Performed By: #### C BC #### [facility] [address] [place] [address] Dr. Darien Mason IG % 0.9 % Critically high 0.0-0.5 [facility] Comment on above: Performed By: #### C BC #### [facility] [address] [place] [address] Dr. Darien Mason LYMPH # 2.7 103/ul Normal 1.2-3.8 [facility] Comment on above: Performed By: #### C BC #### [facility] [address] [place] [address] Dr. Darien Mason Lymphocytes/100 WBC (Bld) 24.0 % Normal 20.5-60.0 [facility] Comment on above: Performed By: #### C BC #### [facility] [address] [place] [address] Dr. Darien Mason MANUAL DIFF REQ NO Normal [facility] Comment on above: Performed By: #### C BC #### [facility] [address] [place] [address] Dr. Darien Mason MCH (RBC) [Entitic mass] 25.3 pg Critically low 25.9-34.0 [facility] Comment on above: Performed By: #### C BC #### [facility] [address] [place] [address] Dr. Darien Mason MCHC (RBC) [Mass/Vol] 30.0 g/dL Normal 29.9-35.2 [facility] Comment on above: Performed By: #### C BC #### [facility] [address] [place] [address] Dr. Darien Mason MCV (RBC) [Entitic vol] 84.5 fL Normal 80.0-94.0 [facility] Comment on above: Performed By: #### C BC #### [facility] [address] [place] [address] Dr. Darien Mason MONO # 0.7 103/ul Normal 0.3-0.8 [facility] Comment on above: Performed By: #### C BC #### [facility] [address] [place] [address] Dr. Darien Mason Monocytes/100 WBC (Bld) 6.0 % Normal 1.7-12.0 [facility] Comment on above: Performed By: #### C BC #### [facility] [address] [place] [address] Dr. Darien Mason NEUT # 7.4 103/ul Critically high 1.4-6.5 [facility] Comment on above: Performed By: #### C BC #### [facility] [address] [place] [address] Dr. Darien Mason Neutrophils/100 WBC (Bld) 66.4 % Normal 43.0-75.0 [facility] Comment on above: Performed By: #### C BC #### [facility] [address] [place] [address] Dr. Darien Mason Platelet mean volume (Bld) [Entitic vol] 8.8 fL Critically low 9.5-13.5 [facility] Comment on above: Performed By: #### C BC #### [facility] [address] [place] [address] Dr. Darien Mason PLT 499 103/ul Critically high 150-450 [facility] Comment on above: Performed By: #### C BC #### [facility] [address] [place] [address] Dr. Darien Mason RBC 4.46 106/ul Critically low 4.70-6.10 [facility] Comment on above: Performed By: #### C BC #### [facility] [address] [place] [address] Dr. Darien Mason WBC 11.1 103/ul Critically high 4.0-11.0 [facility] Comment on above: Performed By: #### C BC #### [facility] [address] [place] [address] Dr. Darien Mason CRPon 07-26-2022 CRP 5.6 mg/dL Critically high <=1.0 [facility] Comment on above: Performed By: #### B MP, CRP #### [facility] [address] [address] [address] Darien Mason PROF CHEM 8 (BAS METB)on Anion gap [Moles/Vol] 12.1 mmol/L Normal Th [facility] Comment on above: Performed By: #### B MP, CRP #### [facility] [address] [place] [address] Dr. Darien Mason Calcium [Mass/Vol] 8.9 mg/dL Normal 8.5-10.1 [facility] Comment on above: Performed By: #### B MP, CRP #### [facility] [address] [place] [address] Dr. Darien Mason Chloride [Moles/Vol] 102 mmol/L Normal 98-107 [facility] Comment on above: Performed By: #### B MP, CRP #### [facility] [address] [place] [address] Dr. Darien Mason CO2 [Moles/Vol] 28.0 mmol/L Normal 21.0-32.0 [facility] Comment on above: Performed By: #### B MP, CRP #### [facility] [address] [place] [address] Dr. Darien Mason Creatinine [Mass/Vol] 0.85 mg/dL Normal 0.70-1.30 [facility] Comment on above: Performed By: #### B MP, CRP #### [facility] [address] [place] [address] Dr. Darien Mason EGFR-AF MONTENEGRIN >60 Normal >=60 [facility] Comment on above: Performed By: #### B MP, CRP #### [facility] [address] [place] [address] Dr. Darien Mason EGFR-NON AF MONTENEGRIN >60 Normal >=60 [facility] Comment on above: Performed By: #### B MP, CRP #### [facility] [address] [place] [address] Dr. Darien Mason Glucose [Mass/Vol] 83 mg/dL Normal 74-106 [facility] Comment on above: Performed By: #### B MP, CRP #### [facility] [address] [address] [address] Darien Mason Potassium [Moles/Vol] 4.1 mmol/L Normal 3.5-5.1 [facility] Comment on above: Performed By: #### B MP, CRP #### [facility] [address] [address] [address] Darien Mason Sodium [Moles/Vol] 138 mmol/L Normal 136-145 [facility] Comment on above: Performed By: #### B MP, CRP #### [facility] [address] [address] [address] Darien Mason Urea nitrogen [Mass/Vol] 9.0 mg/dL Normal 7.0-18.0 [facility] Comment on above: Performed By: #### B MP, CRP #### [facility] [address] [place] [address] Dr. Darien Mason Urea nitrogen/Creatinine [Mass ratio] 10.6 mg/mg Normal [facility] Comment on above: Performed By: #### B MP, CRP #### [facility] [address] [place] [address] Dr. Darien Mason SED RATE WESTERGRENon 2022 SED RATE 86 mm/hr Critically high <=20 [facility] Comment on above: Performed By: #### S EDR #### [facility] [address] [place] [address] Dr. Darien Mason Patient Educationon 05-30-19 23 Patient Education Normal [facility] Provider Letteron 05-30-2022 Provider Letter (Inserted Image. Kay ble to display) May 30, 2022 WENDIE SORENSEN JR [address] [place] [id number] WENDIE SORENSEN JR 1965 Dear Wendie, You [...] do appreciate your understanding. Sincerely, [facility] [address] [place] [address] Normal [facility] Basophils Auto (Bld) [#/Vol] Ordered By: Thom Crabtree on 05-18-2022 Basophils (Bld) [#/Vol] 0.1 10*3/uL 0.0-0.2 [facility] Basophils/100 WBC Auto (Bld) Ordered By: Thom Crabtree on 05-18-2022 Basophils/100 WBC (Bld) 0.6 % . [facility] Bilirubin Test strip Ql (U)O rdered By: Thom Crabtree on 05-18-2022 Bilirubin Ql (U) Negative Negative [facility] Body fluid albumin measureme nt (mass/volume)Ordered By: Thom Crabtree on 05-18-2022 Albumin (Body fld) [Mass/Vol] 3.9 g/dL 3.2-5.5 [facility] Color Auto (U)Ordered By: Shiva Crabtree on 05-18-2022 Color (U) Yellow Yellow [facility] Creatinine and Glomerular fi ltration rate.predicted panel (S/P/Bld)Ordered By: Thom Crabtree on 05-18-2022 Creatinine [Mass/Vol] 0.93 mg/dL 0.64-1.27 [facility] Eosinophils Auto (Bld) [#/Vo l]Ordered By: Thom Crabtree on 05-18-2022 Eosinophils (Bld) [#/Vol] 0.1 10*3/uL 0.0-0.45 [facility] Eosinophils/100 WBC Auto (Bl d)Ordered By: Thom Crabtree on 05-18-2022 Eosinophils/100 WBC (Bld) 1.1 % . [facility] Erythrocyte distribution wid th Auto (RBC) [Ratio]Ordered By: Thom Crabtree on 05-18-2022 Erythrocyte distribution width (RBC) [Ratio] 15.8 % 12.0-14.8 [facility] Estimated glomerular filtrat ion rate (GFR) non- AmericanOrdered By: Thom Crabtree on 05-18-2022 GFR/1.73 sq M.predicted among non-blacks MDRD (S/P/Bld) [Vol rate/Area] > 60 mL/Min [facility] Globulin Calc (S) [Mass/Vol] Ordered By: Thom Crabtree on 05-18-2022 Globulin (S) [Mass/Vol] 3.8 g/dL [facility] Hematocrit Auto (Bld) [Volum e fraction]Ordered By: Thom Crabtree on 05-18-2022 Hematocrit (Bld) [Volume fraction] 40.5 % 38.8-50.0 [facility] Hemoglobin [Mass/volume] in BloodOrdered By: Thom Crabtree on 05-18-2022 Hemoglobin (Bld) [Mass/Vol] 13.4 g/dL 13.0-17.0 [facility] Ketones Auto test strip (U) [Mass/Vol]Ordered By: Thom Crabtree on 05-18-2022 Ketones (U) [Mass/Vol] Negative Negative [facility] Leukocytes [#/volume] correc susan for nucleated erythrocytes in Blood by Automated counOrdered By: Thom Crabtree on 05-18-2022 WBC corrected for nucl RBC Auto (Bld) [#/Vol] 13.7 10*3/uL 4.1-10.5 [facility] Lymphocytes Auto (Bld) [#/Vo l]Ordered By: Thom Crabtree on 05-18-2022 Lymphocytes (Bld) [#/Vol] 2.0 10*3/uL 1.00-4.8 [facility] Lymphocytes/100 WBC Auto (Bl d)Ordered By: Thom Crabtree on 05-18-2022 Lymphocytes/100 WBC (Bld) 14.4 % . [facility] MCH Auto (RBC) [Entitic mass ]Ordered By: Thom Crabtree on 05-18-2022 MCH (RBC) [Entitic mass] 28.2 pg 27.5-35.2 [facility] MCHC Auto (RBC) [Mass/Vol]Or dered By: Thom Crabtree on 05-18-2022 MCHC (RBC) [Mass/Vol] 33.0 g/dL 32.5-35.6 [facility] MCV Auto (RBC) [Entitic vol] Ordered By: Thom Crabtree on 05-18-2022 MCV (RBC) [Entitic vol] 85.4 fL 83.5-101 [facility] Monocyte distribution width [Entitic volume] in Blood by AutomatedOrdered By: Thom Crabtree on 05-18-2022 Monocyte distribution width Auto (Bld) [Entitic vol] 18.29 % 0.00-20.00 [facility] Monocytes Auto (Bld) [#/Vol] Ordered By: Thom Crabtree on 05-18-2022 Monocytes (Bld) [#/Vol] 1.0 10*3/uL 0.0-0.8 [facility] Monocytes/100 WBC Auto (Bld) Ordered By: Thom Crabtree on 05-18-2022 Monocytes/100 WBC (Bld) 7.3 % . [facility] Neutrophils Auto (Bld) [#/Vo l]Ordered By: Thom Crabtree on 05-18-2022 Neutrophils (Bld) [#/Vol] 10.5 10*3/uL 1.8-7.7 [facility] Neutrophils/100 WBC Auto (Bl d)Ordered By: Thom Crabtree on 05-18-2022 Neutrophils/100 WBC (Bld) 76.6 % . [facility] Nitrite Test strip Ql (U)Ord ered By: Thom Crabtree on 05-18-2022 Nitrite Ql (U) Negative Negative [facility] No Panel InformationOrdered By: Thom Crabtree on 05-18-2022 Estimated GFR () > 60 mL/Min [facility] Comment on above: GFR estimated refere nce range: According to KDOQI guidelines, <60 ml/min/1.73m2 is sufficient to diagnose a patient with chronic kidney disease. Pharmacy Creatinine Clearance (Chem 116.23 [facility] Nucleated erythrocytes [Pres ence] in Blood by Automated countOrdered By: Thom Crabtree on 05-18-2022 Nucleated RBC Auto Ql (Bld) 0.1 /100{WBC} 0-0.5 [facility] Platelet mean volume Auto (B ld) [Entitic vol]Ordered By: Thom Crabtree on 05-18-2022 Platelet mean volume (Bld) [Entitic vol] 7.4 fL 6.6-10.1 [facility] Platelets Auto (Bld) [#/Vol] Ordered By: Thom Crabtree on 05-18-2022 Platelets (Bld) [#/Vol] 370 10*3/uL 150-450 [facility] Protein Auto test strip (U) [Mass/Vol]Ordered By: Thom Crabtree on 05-18-2022 Protein (U) [Mass/Vol] Negative Negative [facility] Protein [Mass/volume] in Ser um or PlasmaOrdered By: Thom Crabtree on 05-18-2022 Protein [Mass/Vol] 7.7 g/dL 6.1-7.9 [facility] RBC Auto (Bld) [#/Vol]Ordere d By: Thom Crabtree on 05-18-2022 RBC (Bld) [#/Vol] 4.74 10*6/uL 3.90-5.60 [facility] Serum or plasma alanine shah otransferase measurement without P-5'-P (enzymatic activiOrdered By: Thom Crabtree on 05-18-2022 ALT No additional P-5'-P [Catalytic activity/Vol] 19 U/L 10-60 [facility] Serum or plasma albumin/glob ulin mass ratioOrdered By: Thom Crabtree on 05-18-2022 Albumin/Globulin [Mass ratio] 1.0 {ratio} [facility] Serum or plasma alkaline ric sphatase measurement (enzymatic activity/volume)Ordered By: Thom Crabtree on 05-18-2022 ALP [Catalytic activity/Vol] 95 U/L 32-92 [facility] Serum or plasma anion gap de terminationOrdered By: Thom Crabtree on 05-18-2022 Anion gap [Moles/Vol] 14.7 mmol/L 6.0-15.0 [facility] Serum or plasma aspartate am inotransferase measurement (enzymatic activity/volume)Ordered By: Thom Crabtree on 05-18-2022 AST [Catalytic activity/Vol] 20 U/L 10-42 [facility] Serum or plasma calcium ashley urement (mass/volume)Ordered By: Thom Crabtree on 05-18-2022 Calcium [Mass/Vol] 9.3 mg/dL 8.2-10.2 [facility] Serum or plasma chloride efraín surement (moles/volume)Ordered By: Thom Crabtree on 05-18-2022 Chloride [Moles/Vol] 100 mmol/L 95-114 [facility] Serum or plasma glucose ashley urement (mass/volume)Ordered By: Thom Crabtree on 05-18-2022 Glucose [Mass/Vol] 93 mg/dL 70-100 [facility] Comment on above: ADA recommended refe rence rangeRandom Glucose Reference Range is dependent on time and content of last meal. Glucose of more than 200 mg/dL in a nonstressed, ambulatory subject supports the diagnosis of Diabetes Mellitus. Serum or plasma potassium me asurement (moles/volume)Ordered By: Thom Crabtree on 05-18-2022 Potassium [Moles/Vol] 4.4 mmol/L 3.5-5.1 [facility] Serum or plasma sodium measu rement (moles/volume)Ordered By: Thom Crabtree on 05-18-2022 Sodium [Moles/Vol] 136 mmol/L 136-146 [facility] Serum or plasma total biliru bin measurement (mass/volume)Ordered By: Thom Crabtree on 05-18-2022 Bilirubin [Mass/Vol] 0.5 mg/dL 0.3-1.2 [facility] Serum or plasma total carbon dioxide measurement (moles/volume)Ordered By: Thom Crabtree on 05-18-2022 CO2 [Moles/Vol] 25.7 mmol/L 22.0-30.0 [facility] Serum or plasma urea nitroge n measurement (mass/volume)Ordered By: Thom Crabtree on 05-18-2022 Urea nitrogen [Mass/Vol] 12 mg/dL 9-23 [facility] Specific gravity Auto test s trip (U) [Rel density]Ordered By: Thom Crabtree on 05-18-2022 Specific gravity (U) [Rel density] 1.016 1.001-1.030 [facility] Urine clarity by refractomet ry automatedOrdered By: Thom Crabtree on 05-18-2022 Clarity Refractometry automated (U) Clear Clear [facility] Urine glucose measurement by automated test strip (mass/volume)Ordered By: hTom Crabtree on 05-18-2022 Glucose Auto test strip (U) [Mass/Vol] Normal mg/dL Normal [facility] Urine hemoglobin detection b y automated test stripOrdered By: Thom Crabtree on 05-18-2022 Hemoglobin Auto test strip Ql (U) Negative Negative [facility] Urine leukocyte esterase det ection by automated test stripOrdered By: Thom Crabtree on 05-18-2022 Leukocyte esterase Auto test strip Ql (U) Negative Negative [facility] Urobilinogen Auto test strip (U) [Mass/Vol]Ordered By: Thom Crabtree on 05-18-2022 Urobilinogen (U) [Mass/Vol] Normal mg/dL Normal [facility] WBC Auto (Bld) [#/Vol]Ordere d By: Thom Crabtree on 05-18-2022 WBC (Bld) [#/Vol] 13.7 10*3/uL 4.1-10.5 [facility] pH Auto test strip (U)Ordere d By: Thom Crabtree on 05-18-2022 pH (U) 5.5 [pH] 5.0-9.0 [facility] Ambulatory Visit Summaryon 1 06-02-2021 Ambulatory Visit Summary LUIS CRAWFORD WENDIE L :1965 Visit Date:04/02/2022 Ambulatory Visit Instructions Your Diagnosis Urinary frequency Erectile dysfunction Incomplete bladder emptying Prostate cancer screening Tests Performed Urnls Dip Stick Auto w/o Microscopy POC 20125 Your Care Team Attending Physician - SARAH ALANIS PA-C Primary Care Physician - KRANTHI MCPHERSON MD [...] SARAH ALANIS PA-C Where: [facility] Patient Educationon 04-02-20 Patient Education Urology Erectile [...] these instructions at home: Medicines ? Take bzpm-clt-mtownzg and prescription medicines only as told by [...] of your (more content not included)... Normal [facility] Urology Office/Clinic Noteon 04-02-2022 Urology Office/Clinic [...] E&M of Est. Patient Moderate 30-39 Min 74211 2. Erectile dysfunction (N52.9: Male erectile dysfunction, [...] E&M of Est. Patient Moderate 30-39 Min 05297 3. Incomplete bladder emptying (R33.9: Retention of urine, unspecified) PVR >350ml in office 2018. PVR 178ml uros May 2019. PVR today 146ml. discussed risks of retention. will need to monitor closely as we are starting anticholinergic for nocturia. PVR next visit. Ordered: E&M of Est. Patient Moderate 30-39 Min 31042 4. Prostate cancer screening (Z12.5: Encounter for screening for malignant neoplasm of prostate) Current PSA 0.600 done on 01/24/22. Ordered: E&M of Est. Patient Moderate 30-39 Min 37589 5. Fecal incontinence (R15.9: Full incontinence of feces) recommended he discuss w PCP. may need increased fiber or bulking agents. may need GI referral. Orders: oxybutynin, = 1 tab(s), Oral, Bedtime, # 30 tab(s), Refills(s) 11, called to pharmacy (Rx), 177, cm, 04/02/22 10:20:00 EST, Height/Length Dosing, 113, kg, 04/02/22 10:20:00 EST, Weight Dosing Urnls Dip Stick Auto w/o Microscopy POC 39251 f/u 6 weeks Follow-up With When Contact Information SARAH ALANIS PA-C, URL Within 6 weeks [address] [address] [facility] (1) Additional Instructions: Patient Education Erectile Dysfunction Problem List/Past Medical History Ongoing Erectile dysfunction Fecal incontinence Hesitancy Incomplete bladder emptying Kidney stone Neurogenic bladder Nocturia Prostate cancer screening Urinary frequency Weak urine stream Historical BPH with urinar (more content not included)... Normal [facility] Comment on above: Result Comment: Elec tronically Signed By: SARAH ALANIS PA-C\.br\Date and Time Signed: 04/02/22 11:27 EST Albumin [Mass/volume] in Ser um or PlasmaOrdered By: Rebecca Workman on 2022 Albumin [Mass/Vol] 3.7 g/dL 3.2-5.5 [facility] Basophils Auto (Bld) [#/Vol] Ordered By: Rebecca Workman on 2022 Basophils (Bld) [#/Vol] 0.0 10*3/uL 0.0-0.2 [facility] Basophils/100 WBC Auto (Bld) Ordered By: Rebecca Workman on 2022 Basophils/100 WBC (Bld) 0.5 % . [facility] Blood hemoglobin measurement (mass/volume)Ordered By: Rebecca Workman on 2022 Hemoglobin (Bld) [Mass/Vol] 13.4 g/dL 13.0-17.0 [facility] Blood leukocytes automated c ount (number/volume)Ordered By: Rebecca Rosales on 2022 WBC (Bld) [#/Vol] 8.5 10*3/uL 4.5-11.0 [facility] Cholesterol [Mass/volume] in Serum or PlasmaOrdered By: Rebecca Workman on 2022 Cholesterol [Mass/Vol] 151 mg/dL 140-200 [facility] Comment on above: Chol less than 200 m g/dl low risk Chol 201-239 mg/dl borderline risk Chol 240 mg/dl and greater high risk Chol less than 200 m g/dl low riskChol 201-239 mg/dl borderline riskChol 240 mg/dl and greater high risk Cholesterol in LDL Calc [Mas s/Vol]Ordered By: Rebecca Workman on 2022 Cholesterol in LDL [Mass/Vol] 89 mg/dL 0-100 [facility] Comment on above: LDL ATP III CLASSIFI [...] 2022 Cholesterol in VLDL [Mass/Vol] 27 mg/dL [facility] Creatinine and Glomerular fi ltration rate.predicted panel (S/P/Bld)Ordered By: eRbecca Workman on 2022 Creatinine [Mass/Vol] 0.94 mg/dL 0.64-1.27 [facility] Eosinophils Auto (Bld) [#/Vo l]Ordered By: Rebecca Workman on 2022 Eosinophils (Bld) [#/Vol] 0.2 10*3/uL 0.0-0.45 [facility] Eosinophils/100 WBC Auto (Bl d)Ordered By: Rebecca Workman on 2022 Eosinophils/100 WBC (Bld) 2.9 % . [facility] Erythrocyte distribution wid th Auto (RBC) [Ratio]Ordered By: Rebecca Rosales on 2022 Erythrocyte distribution width (RBC) [Ratio] 15.5 % 12.0-14.8 [facility] Estimated glomerular filtrat ion rate (GFR) non- AmericanOrdered By: Rebecca Workman on 2022 GFR/1.73 sq M.predicted among non-blacks MDRD (S/P/Bld) [Vol rate/Area] > 60 mL/Min [facility] Globulin Calc (S) [Mass/Vol] Ordered By: Rebecca Workman on 2022 Globulin (S) [Mass/Vol] 3.0 g/dL [facility] Glucose mean value [Mass/vol ume] in Blood Estimated from glycated hemoglobinOrdered By: Rebecca Workman on 2022 Average glucose Estimated from glycated hemoglobin (Bld) [Mass/Vol] 114 mg/dL [facility] Hematocrit Auto (Bld) [Volum e fraction]Ordered By: Rebecca Workman on 2022 Hematocrit (Bld) [Volume fraction] 40.6 % 38.8-50.0 [facility] Hemoglobin A1c percentageOrd ered By: Rebecca Workman on 2022 HbA1c (Bld) [Mass fraction] 5.6 % 4.3-5.6 [facility] Comment on above: Increased risk for d iabetes: 5.7 - 6.4 diabetes: >6.4 glycemic control for adults with diabetes: <7.0 Increased risk for d iabetes: 5.7 - 6.4diabetes: >6.4glycemic control for adults with diabetes: <7.0 Laboratory - Hematology and Cell countsOrdered By: Rebecca Workman on 2022 Nucleated RBC/100 WBC (Bld) [Ratio] 0.0 % 0-0.5 [facility] Lymphocytes Auto (Bld) [#/Vo l]Ordered By: Rebecca Workman on 2022 Lymphocytes (Bld) [#/Vol] 2.0 10*3/uL 1.00-4.8 [facility] Lymphocytes/100 WBC Auto (Bl d)Ordered By: Rebecca Workman on 2022 Lymphocytes/100 WBC (Bld) 24.2 % . [facility] MCH Auto (RBC) [Entitic mass ]Ordered By: Rebecca Workman on 2022 MCH (RBC) [Entitic mass] 28.5 pg 27.5-35.2 [facility] MCHC Auto (RBC) [Mass/Vol]Or dered By: Rebecca Workman on 2022 MCHC (RBC) [Mass/Vol] 32.9 g/dL 32.5-35.6 [facility] MCV Auto (RBC) [Entitic vol] Ordered By: Rebecca Workman on 2022 MCV (RBC) [Entitic vol] 86.8 fL 83.5-101 [facility] Monocytes Auto (Bld) [#/Vol] Ordered By: Rebecca Workman on 2022 Monocytes (Bld) [#/Vol] 0.7 10*3/uL 0.0-0.8 [facility] Monocytes/100 WBC Auto (Bld) Ordered By: Rebecca Workman on 2022 Monocytes/100 WBC (Bld) 8.2 % . [facility] Neutrophils Auto (Bld) [#/Vo l]Ordered By: Rebecca Workman on 2022 Neutrophils (Bld) [#/Vol] 5.4 10*3/uL 1.8-7.7 [facility] Neutrophils/100 WBC Auto (Bl d)Ordered By: Rebecca Workman on 2022 Neutrophils/100 WBC (Bld) 64.2 % . [facility] No Panel InformationOrdered By: Rebecca Workman on 2022 Estimated GFR () > 60 mL/Min [facility] Comment on above: GFR estimated refere nce range: According to KDOQI guidelines, <60 ml/min/1.73m2 is sufficient to diagnose a patient with chronic kidney disease. Pharmacy Creatinine Clearance (Chem N/A [facility] Prostate Specific Antigen Screen 0.600 ng/mL 0.000-4.000 [facility] Platelet mean volume Auto (B ld) [Entitic vol]Ordered By: Rebecca Workman on 2022 Platelet mean volume (Bld) [Entitic vol] 7.6 fL 6.6-10.1 [facility] Platelets Auto (Bld) [#/Vol] Ordered By: Rebecca Workman on 2022 Platelets (Bld) [#/Vol] 296 10*3/uL 150-450 [facility] Protein [Mass/volume] in Ser um or PlasmaOrdered By: Rebecca Workman on 2022 Protein [Mass/Vol] 6.7 g/dL 6.1-7.9 [facility] RBC Auto (Bld) [#/Vol]Ordere d By: Rebecca Workman on 2022 RBC (Bld) [#/Vol] 4.68 10*6/uL 3.90-5.60 [facility] Serum or plasma alanine shah otransferase measurement without P-5'-P (enzymatic activiOrdered By: Rebecca Workman on 2022 ALT No additional P-5'-P [Catalytic activity/Vol] 22 U/L 10-60 [facility] Serum or plasma albumin/glob ulin mass ratioOrdered By: Rebecca Workman on 2022 Albumin/Globulin [Mass ratio] 1.2 {ratio} [facility] Serum or plasma alkaline ric sphatase measurement (enzymatic activity/volume)Ordered By: Rebecca Workman on 2022 ALP [Catalytic activity/Vol] 103 U/L 32-92 [facility] Serum or plasma anion gap de terminationOrdered By: Rebecca Workman on 2022 Anion gap [Moles/Vol] 12.1 mmol/L 6.0-15.0 [facility] Serum or plasma aspartate am inotransferase measurement (enzymatic activity/volume)Ordered By: Rebecca Workman on 2022 AST [Catalytic activity/Vol] 18 U/L 10-42 [facility] Serum or plasma calcium ashley urement (mass/volume)Ordered By: Rebecca Rosales on 2022 Calcium [Mass/Vol] 9.5 mg/dL 8.2-10.2 [facility] Serum or plasma chloride efraín surement (moles/volume)Ordered By: Rebecca Workman on 2022 Chloride [Moles/Vol] 102 mmol/L 95-114 [facility] Serum or plasma glucose ashley urement (mass/volume)Ordered By: Rebecca Rosales on 2022 Glucose [Mass/Vol] 90 mg/dL 70-100 [facility] Comment on above: ADA recommended refe rence [...] Cholesterol in HDL [Mass/Vol] 34 mg/dL 29-71 [facility] Comment on above: HDL CHOL ATP-III CLA SSIFICATION Cardiovascular Risk HDL > or equal to 60 mg/dL LOW HDL < 40 mg/dL HIGH HDL CHOL ATP-III CLA SSIFICATION Cardiovascular RiskHDL > or equal to 60 mg/dL LOWHDL < 40 mg/dL HIGH Serum or plasma potassium me asurement (moles/volume)Ordered By: Rebecca Workman on 2022 Potassium [Moles/Vol] 4.5 mmol/L 3.5-5.1 [facility] Serum or plasma sodium measu rement (moles/volume)Ordered By: Rebecca Rosales on 2022 Sodium [Moles/Vol] 134 mmol/L 136-146 [facility] Serum or plasma total biliru bin measurement (mass/volume)Ordered By: Rebecca Workman on 2022 Bilirubin [Mass/Vol] 0.7 mg/dL 0.3-1.2 [facility] Serum or plasma total carbon dioxide measurement (moles/volume)Ordered By: Rebecca Workman on 2022 CO2 [Moles/Vol] 24.4 mmol/L 22.0-30.0 [facility] Serum or plasma total choles terol/high density lipoprotein (HDL) cholesterol mass ratOrdered By: Rebecca Workman on 2022 Cholesterol.total/Chol esterol in HDL [Mass ratio] 4.4 {ratio} <5.0 [facility] Serum or plasma urea nitroge n measurement (mass/volume)Ordered By: Rebecca Workman on 2022 Urea nitrogen [Mass/Vol] 11 mg/dL 9-23 [facility] TSH DL <= 0.005 mIU/L QnOrde red By: Rebecca Workman on 2022 TSH Qn 2.95 m[IU]/L 0.45-5.33 [facility] Triglyceride [Mass/volume] i n Serum or PlasmaOrdered By: Rebecca Workman on 2022 Triglyceride [Mass/Vol] 139 mg/dL 35-149 [facility] Comment on above: TRIG ATP III CLASSIF [...] HbA1c (Bld) [Mass fraction] 5.4 % Normal [facility] Comment on above: Result Comment: Gaby mandujano Diagnosis HbA1c (%) --------- Diabetic > 6.4 Prediabetes 5.7-6.4 Normal < 5.7 Performed By: #### L 500.00085 #### Test performed at: [address] [address] B12on 2021 Cobalamin (Vitamin B12) [Mass/Vol] 649 pg/mL Normal 193-986 [facility] Comment on above: Order Comment: Is pa tient fasting? NO Performed By: #### L 500.94274, L500.84215, L500.67372, L500.73142, L500.38316, L500.31483 #### Test performed at: [address] [address] CBCon 2021 Erythrocyte distribution width (RBC) [Ratio] 14.1 % Normal 11.5-14.5 [facility] Comment on above: Performed By: #### L 200.71508 #### Test performed at: [address] [address] Hematocrit (Bld) [Volume fraction] 43.9 % Normal 39.0-55.0 [facility] Comment on above: Performed By: #### L 200.80090 #### Test performed at: [address] [address] Hemoglobin (Bld) [Mass/Vol] 14.4 g/dL Normal 14.0-16.5 [facility] Comment on above: Performed By: #### L 200.79377 #### Test performed at: [address] [address] MCH (RBC) [Entitic mass] 28.7 pg Normal 25.4-34.6 [facility] Comment on above: Performed By: #### L 200.28629 #### Test performed at: [address] [address] MCHC (RBC) [Mass/Vol] 32.8 g/dL Normal 31.5-36.5 [facility] Comment on above: Performed By: #### L 200.61705 #### Test performed at: [address] [address] MCV (RBC) [Entitic vol] 87.6 fL Normal 80.0-100.0 [facility] Comment on above: Performed By: #### L 200.21992 #### Test performed at: [place] [address] NRBC # 0.000 K/uL Normal 0-0.012 [facility] Comment on above: Performed By: #### L 200.55184 #### Test performed at: [place] [address] NRBC % 0.0 /100 WBC Normal 0-0.2 [facility] Comment on above: Performed By: #### L 200.39033 #### Test performed at: [address] [address] Platelet mean volume (Bld) [Entitic vol] 9.9 fL Normal 8.7-12.4 [facility] Comment on above: Performed By: #### L 200.52363 #### Test performed at: [address] [address] Platelets (Bld) [#/Vol] 303 10*3/uL Normal 140-440 [facility] Comment on above: Performed By: #### L 200.15600 #### Test performed at: [address] [address] RBC (Bld) [#/Vol] 5.01 10*6/uL Normal 3.5-5.5 [facility] Comment on above: Performed By: #### L 200.37293 #### Test performed at: [address] [address] WBC (Bld) [#/Vol] 9.6 10*3/uL Normal 3.9-11.0 [facility] Comment on above: Performed By: #### L 200.96343 #### Test performed at: [address] [address] COMP META PANELon 2021 Albumin [Mass/Vol] 4.0 g/dL Normal 3.4-5.0 [facility] Comment on above: Order Comment: Is pa tient fasting? NO Performed By: #### L 500.90205, L500.60877, L500.55255, L500.64343, L500.24252, L500.15410 #### Test performed at: [address] [address] ALK PHOS TOTAL 116 U/L Normal 45-117 [facility] Comment on above: Order Comment: Is pa tient fasting? NO Performed By: #### L 500.45180, L500.37074, L500.14110, L500.86006, L500.74458, L500.11504 #### Test performed at: [address] [address] ALT [Catalytic activity/Vol] 28 U/L Normal 13-61 [facility] Comment on above: Order Comment: Is pa tient fasting? NO Performed By: #### L 500.94269, L500.00413, L500.53686, L500.78647, L500.88291, L500.40251 #### Test performed at: [place] [address] AST [Catalytic activity/Vol] 23 U/L Normal 15-37 [facility] Comment on above: Order Comment: Is pa tient fasting? NO Performed By: #### L 500.54590, L500.75797, L500.09436, L500.42777, L500.81572, L500.46176 #### Test performed at: [address] [address] BILI TOTAL 0.6 mg/dL Normal 0.2-1.0 [facility] Comment on above: Order Comment: Is pa tient fasting? NO Performed By: #### L 500.35983, L500.02428, L500.45495, L500.71219, L500.16516, L500.30714 #### Test performed at: [address] [address] Calcium [Mass/Vol] 8.7 mg/dL Normal 8.5-10.1 [facility] Comment on above: Order Comment: Is pa tient fasting? NO Performed By: #### L 500.44945, L500.93180, L500.41902, L500.90924, L500.12330, L500.54627 #### Test performed at: [address] [address] Chloride [Moles/Vol] 106 mmol/L Normal 98-107 [facility] Comment on above: Order Comment: Is pa tient fasting? NO Performed By: #### L 500.60586, L500.12574, L500.27194, L500.82761, L500.86362, L500.40319 #### Test performed at: [address] [address] CO2 [Moles/Vol] 24 mmol/L Normal 21-32 [facility] Comment on above: Order Comment: Is pa tient fasting? NO Performed By: #### L 500.16730, L500.20376, L500.46868, L500.65158, L500.79380, L500.61138 #### Test performed at: [address] [address] Creatinine [Mass/Vol] 0.894 mg/dL Normal 0.700-1.300 [facility] Comment on above: Order Comment: Is pa tient fasting? NO Performed By: #### L 500.67637, L500.38296, L500.64885, L500.77908, L500.88837, L500.83780 #### Test performed at: [address] [address] Glucose [Mass/Vol] 85 mg/dL Normal 70-99 [facility] Comment on above: Order Comment: Is pa tient fasting? NO Result Comment: Fast ing GLUCOSE reference range has been updated per (ADA) [place] [employer]'s recommendation. 08/04/2018 Performed By: #### L 500.27886, L500.60268, L500.05417, L500.41204, L500.28186, L500.78893 #### Test performed at: [address] [address] Potassium [Moles/Vol] 4.4 mmol/L Normal 3.5-5.1 [facility] Comment on above: Order Comment: Is pa tient fasting? NO Performed By: #### L 500.44537, L500.24091, L500.99121, L500.73656, L500.28022, L500.47500 #### Test performed at: [address] [address] Protein [Mass/Vol] 7.8 g/dL Normal 6.4-8.2 [facility] Comment on above: Order Comment: Is pa tient fasting? NO Performed By: #### L 500.23103, L500.28347, L500.05046, L500.84090, L500.68739, L500.16827 #### Test performed at: [address] [address] Sodium [Moles/Vol] 136 mmol/L Normal 136-145 [facility] Comment on above: Order Comment: Is pa tient fasting? NO Performed By: #### L 500.88538, L500.78707, L500.12044, L500.92532, L500.50044, L500.56335 #### Test performed at: [address] [address] Urea nitrogen [Mass/Vol] 10 mg/dL Normal 7-18 [facility] Comment on above: Order Comment: Is pa tient fasting? NO Performed By: #### L 500.44150, L500.39160, L500.28473, L500.74489, L500.34082, L500.86549 #### Test performed at: [address] [address] GFR ESTIMATEon 2021 IF AMER > 60 Normal > 60 [facility] Comment on above: Order [...] for clinical interpretation. Performed By: #### L 500.56096, L500.31910, L500.91984, L500.93744, L500.14413, L500.22337 #### Test performed at: [place] [address] IF non-AFR AMER > 60 Normal > 60 [facility] Comment on above: Order Comment: Is pa tient fasting? NO Performed By: #### L 500.59201, L500.96961, L500.84169, L500.30702, L500.37809, L500.96193 #### Test performed at: [place] [address] LIPID PROFILEon 2021 Cholesterol [Mass/Vol] 186 mg/dL Normal <200 [facility] Comment on above: Order Comment: Is pa tient fasting? NO Result Comment: <200 mg/dL (Desirable) 200-240 mg/dL (Borderline) >240 mg/dL (High Risk) Performed By: #### L 500.54028, L500.08122, L500.07559, L500.09810, L500.36787, L500.89750 #### Test performed at: [place] [address] Cholesterol in HDL [Mass/Vol] 39 mg/dL Low 40-60 [facility] Comment on above: Order Comment: Is pa tient fasting? NO Performed By: #### L 500.22929, L500.07312, L500.15111, L500.01295, L500.55237, L500.58307 #### Test performed at: [address] [address] Cholesterol in LDL [Mass/Vol] 108 mg/dL Normal 60-130 [facility] Comment on above: Order Comment: Is pa tient fasting? NO Performed By: #### L 500.22565, L500.33969, L500.92764, L500.77075, L500.37361, L500.55307 #### Test performed at: [address] [address] Triglyceride [Mass/Vol] 241 mg/dL High <150 [facility] Comment on above: Order Comment: Is pa tient fasting? NO Result Comment: <150 mg/dL (Normal) 150-199 mg/dL (Borderline) 200-499 mg/dL (High) >500 mg/dL (Very High) Performed By: #### L 500.17468, L500.18345, L500.54733, L500.18727, L500.71348, L500.06955 #### Test performed at: [address] [address] PROS SPEC AGon 2021 PROS SPEC AG 0.712 ng/mL Normal 0-4.0 [facility] Comment on above: Order Comment: Is pa tient fasting? NO Performed By: #### L 500.49321, L500.65252, L500.40859, L500.17362, L500.64570, L500.25593 #### Test performed at: [address] [address] TSH ULTRA SENSon 2021 TSH ULTRA SENS 2.770 uIU/mL Normal 0.358-3.74 [facility] Comment on above: Order Comment: Is pa tient fasting? NO Performed By: #### L 500.46680, L500.32440, L500.86373, L500.33934, L500.57907, L500.48936 #### Test performed at: [facility] [address] [place] [id number] LUMB SP COMP W FLEX/EXT 6 VW Son 02-22-2020 LUMB SP COMP W FLEX/EXT 6 VWS STUDY: LUMB SP COMP W FLEX/EXT 6 VWS ; 02/22/2020 9:06 am INDICATION: PAIN. COMPARISON: None. ACCESSION NUMBER(S): [id number] ORDERING CLINICIAN: Kranthi Mcpherson FINDINGS: No fracture or subluxation of the lumbar spine. Mild disc height loss at L4-5. Scattered small endplate osteophytes. Multilevel facet arthropathy. 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 No spondylolisthesis. No spondylolysis. No instability on flexion or extension. IMPRESSION: Degenerative changes of the lumbar spine without instability. 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 Has been experiencing [...] necessary basis after his surgical consultation Normal [facility] [place] L-SPINE WO CON IMPORT on 12-03-2018 [place]INE WO CON IMPORT Images were obtained outside of [facility] [id number] Normal [facility] CNOVon 11-23-2018 CNOV Office Visit (PAINCR ) ----- WENDIE SORNESEN ([id number]) 1965 M Date Time Provider Department 11/23/18 8:30 AM VALENTIN MART During your visit today, we recorded the following information about you: Pulse Respiration Blood pressure Weight 73/minute 16/minute 150/90 115.7 kg Height 1.778 m Valentin Mart MD 11/23/2018 9:35 AM Signed History and Physical Assessment of Neck and Back Pain Patient Name: Wendie Sorensen MR #: [id number] Age: [age] year old Date: November 24, [...] weakness. Skin: Normal/Negative. Heart/Lungs: Normal/Negative. GI: constipation. /EXPEDITER SERVICE ORDER: frequency. Heme: Normal/Negative. Endo: Normal/Negative. Neuro: sleep [...] No Patient feels safe at home: Yes Storekeeper Steward: Holli Garcia RN Patient is a 53-year-old [...] Allergies) Date Reviewed: 11/23/2018 Reviewed by: Holli (Anibal) ANIBAL Garcia - Fully Assessed Reason for Visit: Pain [78] Cmt: low back,legs,feet Primary Visit Diagnosis:Acute bilateral low back pain with sciatica, sciatica laterality unspecified [M54.40] Other Visit Diagnosis:Weakness of both lower extremities [R29.898] Order(s):XR LUMBAR GENERAL 3V AP/LAT/L5-S1 [1926380] Order #: [id number] FUTURE CONSULT TO PHYSICAL THERAPY [9042] Order #: [id number]: 1 ibuprofen (MOTRIN) 800 mg tabletTake 1 [...] 0 CONSULT TO NEUROSURGERY [19990518] Order #: [id number]: 1 oxyCODONE-acetaminophen (PERCOCET) 5-325 mg tabletTake 1 tablet by mouth every 8 hours as needed for up to 7 days. Earliest Fill Date: 11/23/18Disp: 21 tabletRfl: 0 MRI LUMBAR SPINE WO IVCON [8404191] Order #: [id number] FUTURE Prescriptions as of 11/23/2018 Sig: HYDROCODONE [...] Status:Closed by VALENTIN MART MD on 11/23/18 [facility] PROGRESSon 11-23-2018 PROGRESS HNO ID: [id number] Author: Nya Olivas (Tech) Service: ? Author Type: Packaging Manager Type: Progress Notes Filed: 11/23/2018 9:52 AM [...] DATA: Not applicable SIGNED BY: Nya Olivas CIRCUS HAND November 23, 2018 9:52 AM [facility] PROGRESS HNO ID: [id number] Author: Valentin Mart Service: ? Author Type: Physician Type: Progress Notes Filed: 11/23/2018 9:35 AM Note Text: History and Physical Assessment of Neck and Back Pain Patient Name: Wendie Sorensen MR #: [id number] Age: [age] year old Date: November 24, [...] weakness. Skin: Normal/Negative. Heart/Lungs: Normal/Negative. GI: constipation. /EXPEDITER SERVICE ORDER: frequency. Heme: Normal/Negative. Endo: Normal/Negative. Neuro: sleep [...] No Patient feels safe at home: Yes Storekeeper Steward: Holli Garcia RN Patient is a 53-year-old [...] the plan and agree of proceeding.. Normal [facility] XR LUMBAR 3V AP/LAT/L5-S1on 11-23-2018 XR LUMBAR [...] other significant abnormality. IMPRESSION: DEGENERATIVE CHANGES DESCRIBED Education And Development Manager: TRIXIE Transcribe Date/Time: Nov 23 2018 10:22A Dictated by : NOLBERTO JETER MD This examination was interpreted and the report reviewed and electronically signed by: NOLBERTO JETER MD on Nov 23 2018 10:22AM EST [id number] Normal [facility] CNCOon 11-20-2018 CNCO Letter Text Normal [facility] CNOVon 04-30-2018 CNOV Office Visit (AMDERM ) ----- WENDIE SORENSEN ([id number]) 1965 M Date Time Provider Department 04/30/18 [...] Past Histories independently gathered by the clinical program support assistant and the remaining scribed note accurately describes my personal service to the patient. Ara Velez 04/30/2018 11:16 AM Signed [facility] D[facility] Liquid Nitrogen Therapy Care Instructions [...] Date Reviewed: 04/30/2018 Reviewed by: Maria Elena Doty - Fully Assessed Reason for Visit: New [...] (None) Other instructions from your clinician: [facility] D[facility] Liquid Nitrogen Therapy Care Instructions [...] MARIA ELENA DOTY CNP on 04/30/18 Normal [facility] PROGRESSon 04-30-2018 PROGRESS HNO ID: [id number] Author: Maria Elena Doty Service: (none) Author Type: Nurse Practitioner Type: [...] Past Histories independently gathered by the clinical program support assistant and the remaining scribed note accurately describes my personal service to the patient. Normal [facility] Vital Signs Date Time Vital Sign Value Performing Clinician Faci lity 05-18-2022 18:00-0500 Diastolic blood pressure 80 mm[Hg] MD Rebecca Workman Work Phone: [facility] 05-18-2022 18:00-0500 Heart rate 77 /min MD Rebecca Workman Work Phone: [facility] 05-18-2022 18:00-0500 Respiratory rate 18 /min MD Rebecca Workman Work Phone: [facility] 05-18-2022 18:00-0500 SaO2% (BldA) [Mass fraction] 99 % MD Rebecca Workman Work Phone: [facility] 05-18-2022 18:00-0500 Systolic blood pressure 133 mm[Hg] MD Rebecca Workman Work Phone: [facility] 05-18-2022 14:01-0500 Body height 177.8 cm MD Rebecca Workman Work Phone: [facility] 01-07-2023 14:01-0500 Body temperature 98.6 [degF] MD Rebecca Workman Work Phone: [facility] 05-18-2022 14:01-0500 Body weight 130.7 kg MD Rebecca Workman Work Phone: [facility] 04-02-2022 10:15-0500 Blood Pressure Location SARAH ALANIS [facility] 04-02-2022 10:15-0500 Diastolic blood pressure 80 mm[Hg] SARAH ALANIS [facility] 04-02-2022 10:15-0500 Heart rate 68 /min SARAH ALANIS [facility] 04-02-2022 10:15-0500 Systolic blood pressure 122 mm[Hg] SARAH ALANIS [facility] Encounters Encounter Date Encounter Type Care Provider Facility Start: 12-17-2023 End: 12-17-2023 ambulatory AMAR B MUTNAL Not Available Start: 12-10-2023 End: 12-10-2023 ambulatory AMAR B MUTNAL Not Available Start: 12-04-2023 End: 12-04-2023 ambulatory REBECCA WORKMAN Not Available Start: 11-26-2023 End: 11-30-2023 Evaluation and management of inpatient MOHAMUD [facility] Start: 11-25-2023 End: 11-25-2023 ambulatory AMAR B MUTNAL Not Available Start: 11-25-2023 End: 11-26-2023 ambulatory AMAR MUTNAL [facility] Start: 11-18-2023 End: 11-22-2023 ambulatory AMAR MUTNAL [facility] Start: 11-12-2023 End: 11-12-2023 ambulatory AMAR B MUTNAL Not Available Start: 11-04-2023 End: 11-04-2023 ambulatory REBECCA WORKMAN [facility] Start: 10-15-2023 End: 10-15-2023 ambulatory CAROLYNE CRAWFORD Not Available Start: 09-17-2023 End: 09-17-2023 ambulatory REBECCA WORKMAN Not Available Start: 10-09-2022 ambulatory YVONNE KIRAN Facility:H 1 Start: 10-08-2022 ambulatory BERTHA TEJADA Faci lity:H1 Start: 09-17-2022 End: 09-18-2022 ambulatory PETER D HIGHLANDER Facility:H1 Start: 08-30-2022 End: 08-31-2022 [facility] Start: 08-23-2022 End: 08-24-2022 ambulatory [facility] Start: 08-09-2022 End: 08-10-2022 ambulatory [facility] Eli[facility] Start: 07-30-2022 End: 07-31-2022 ambulatory BERTHA Elias [facility] Facility:H1 Start: 07-26-2022 End: 07-26-[address] ASHU SUN Facility:[facility]1 Start: 07-23-2022 End: 07-24-2022 ambulatory [facility]THA Eli[facility] Start: 07-08-2022 End: 07-23-[address] DOCTOR PEREZ Facility:H1 Start: 05-30-2022 End: 05-31-2022 ambulatory SARAH ALANIS Facility:[facility] Start: 05-20-2022 End: 05-21-2022 ambulatory Rebecca Workman Facility:[facility] Start: 05-18-2022 End: 05-18-2022 Emergency department patient visit MD Rebecca Workman Work Phone: [facility] Work Phone: Start: 04-24-2022 End: 04-24-2022 ambulatory MD Rebecca Workman Work Phone: [facility] Work Phone: Start: 04-24-2022 End: 04-24-2022 Patient encounter procedure MD Rebecca Workman Work Phone: [facility]Ul[facility]ound [facility] [place] Start: 04-02-2022 End: 04-03-2022 ambulatory SARAH Liliana ALANIS Facility:[facility] Start: 04-02-2022 End: 04-02-2022 Patient encounter procedure SARAH Liliana ANNABELLE [facility] Start: 2022 End: 2022 Patient encounter procedure MD Rebecca Workman Work Phone: [facility]Electrodiagnostics Procedures Date Procedure Procedure Detail Performing Clinician Start: 05-18-2022 X-ray of left foot MD Maggy Workman Work Phone: Start: 04-24-2022 Duplex scan of lower limb veins MD Rebecca Workman Work Phone: Start: 12-22-2018 Back structure, excl uding neck (body structure) SARAH ALANIS Plan of Treatment Date Care Activity Detail Author Start: 05-18-2022 Duplex scan of lower limb veins US venous duplex LE [facility] Start: 05-18-2022 US Lower extremity v ein - left [facility] Start: 05-18-2022 Bacteria identified in Blood by Culture Blood Culture [facility] Start: 04-24-2022 Duplex scan of lower limb veins US venous duplex LE [facility] Start: 04-24-2022 US Lower extremity v ein - bilateral [facility] Patient Education Cellulitis (Sk in Infection), Adult (DC) [facility] Work Phone: Patient referral [facility] Work Phone: Payers Date Payer Category Payer Medicare [id number] 2022 Self-pay [id number] 1965 Unknown [id number] 2.16.840.1.667427.3.579.2.727 1965 Unknown [id number] 2.16.840.1.451471.3.579.2.727 1963 Unknown [id number] 2.16.840.1.902182.3.579.2.593 1963 Unknown [id number] 2.16.840.1.707406.3.579.2.593 1963 Unknown [id number] 2.16.840.1.209515.3.579.2.593 1963 Unknown [id number] 2.16.840.1.090160.3.579.2.593 1963 Unknown [id number] 2.16.840.1.241414.3.579.2.593 1963 Unknown [id number] 2.16.840.1.542031.3.579.2.593 1963 Unknown [id number] 2.16.840.1.076419.3.579.2.593 1963 Unknown [id number] 2.16.840.1.657630.3.579.2.593 1963 Unknown [id number] 2.16.840.1.288405.3.579.2.593 1963 Unknown [id number] 2.16.840.1.151259.3.579.2.593 1963 Unknown [id number] 2.16.840.1.927715.3.579.2.593 1963 Unknown [id number] 2.16.840.1.794867.3.579.2.1245 1963 Unknown [id number] 2.16.840.1.397417.3.579.2.182 1963 Unknown [id number] 2.16.840.1.657896.3.579.2.182 1963 Unknown [id number] 2.16.840.1.950956.3.579.2.182 1963 Unknown [id number] 2.16.840.1.437768.3.579.2.182 1963 Unknown [id number] 2.16.840.1.701752.3.579.2.9 1963 Unknown [id number] 2.16.840.1.365044.3.579.2.1258 1963 Unknown [id number] 2.16.840.1.778140.3.579.2.1258 1963 Unknown [id number] 2.16.840.1.718046.3.579.2.1258 1963 Unknown [id number] 2.16.840.1.969962.3.579.2.1258 1963 Unknown [id number] 2.16.840.1.365435.3.579.2.1258 1963 Unknown [id number] 2.16.840.1.580897.3.579.2.1258 1963 Unknown [id number] 2.16.840.1.059316.3.579.2.9 1965 Unknown [id number] 2.16.840.1.670779.3.579.2.1258 1965 Unknown [id number] 2.16.840.1.742318.3.579.2.1259 1959 Unknown [id number] Unknown [id number] 2.16.840.1.233679.3.579.2.531 Worker's Compensation [facility] [id number] Social History Date Type Detail Facility Start: 11-19-2018 End: 05-18-2022 Tobacco smoking status NHIS Never smoked tobacco (finding) [facility] Start: 1965 Sex Assigned At Male [facility] Tobacco smoking status Never [facility] Sex Assigned At Male [facility] Functional Status Date Assessment Result Facility 04-02-2022 Functional Status N/A [facility] Clinical Note 11-12-2023 Note Date & Type [...] authenticated by: PIPO MACK Date: 2022-07-23 12:08 [facility] Discharge instructions 04-02-2022 Note Date & [...] Follow these instructions at home: Medicines Take aewn-aqs-wggrihu and prescription medicines only as told by [...] 04/25/2001 Document Revised: 04/10/2018 Document Reviewed: 05/14/2017 [employer] Patient Education 2020 [employer] Follow Up Care 03/25/2022 13:35:31 With:SARAH ALANIS PA-C, URL Address: [place] [address] Business (1) When:6 weeks [facility] Evaluation + Plan note Note Date & Type Note Facility Evaluation + Plan note Future Appointments Appointment Date:05/30/2022 11:15:00 AM Scheduled Provider:SARAH ALANIS PA-C Location:[facility] Wing Appointment Type:URO Office Visit [facility] Evaluation note Note Date & Type Note Facility Evaluation note No assessment information availa ble [facility] Work Phone: Hospital course Narrative Note Date & Type Note Facility Hospital course Narrative No data available for this section [facility] Hospital Discharge instructions Note Date & Type Note Facility Hospital Discharge instructions Additional Instructions Come back to the infusion center twice on Friday and twice on Friday. Call dental surgeon and wound care center on Friday morning. Keep the wound clean dry and covered at all times. [facility] Work Phone: Progress note Note Date & Type Note Facility Progress note No data available for this section [facility] Summary Purpose Family History No Family History [...] section and content) DATE CREATED AUTHOR 12/08/2018 [facility] DATE CREATED AUTHOR AUTHOR'S ORGANIZ ATION 02/14/2021 [facility] DATE CREATED AUTHOR AUTHOR'S ORGANIZ ATION 06/05/2022 [facility] DATE CREATED AUTHOR AUTHOR'S ORGANIZ ATION 10/21/2022 [facility] DATE CREATED AUTHOR AUTHOR'S ORGANIZ ATION 05/26/2023 [facility] DATE CREATED AUTHOR AUTHOR'S ORGANIZ ATION 11/09/2023 [facility] DATE CREATED AUTHOR AUTHOR'S ORGANIZ ATION 12/02/2023 [facility] DATE CREATED AUTHOR AUTHOR'S ORGANIZ ATION 12/20/2023 [facility] [employer] Care Teams (unrecognized sec tion and content) [...] BE BASED ON THE PRIMARY CLINICAL RECORDS. [facility] [employer] [facility]. provides no warranty or guarantee of the accuracy or completeness of information in this document.
== END 2024-01-02 09:44 | disposition home or self-care (01) ==
LOC: WC 09:44
PROVIDERS: Visit Provider Podiatrist Foot & Ankle Surgery
DX: L89.623 Pressure ulcer of left heel, stage 3 (principal)
CPT/HCPCS: 11042; G0463

== ENCOUNTER 2024-01-28 15:59 | Outpatient (OUT) | payer MEDICARE, SELFPAY ==
--- NOTE | 2024-01-28 | VEIN_ITS ---
The [address] [address] Patient Name: WENDIE SMITH MRN: [id number] date: 1965 Sex: M Assigned Patient Location: Current Patient Location: Accession/Order Number: [id number] Exam Date: 01/28/2024 16:02 Report Date: 01/30/2024 06:52 At the request of: NON-STAFF PHYSICIAN Procedure: VC SEGMENTAL PRESSURES EXAM: VC SEGMENTAL PRESSURES HISTORY: Heel ulcer, left L97.422 COMPARISON: None. TECHNIQUE: Resting ABIs and segmental pressures were obtained. FINDINGS: Right resting DEAN normal at 1.29. Left resting DEAN normal at 1.08. No pressure gradients are noted. VEIN/VC SEGMENTAL PRESSURES IMPRESSION: Normal resting ABIs. No pressure gradients are noted. Electronically authenticated by: Dong SRINIVASAN Date: 01/30/2024 06:52
--- OUTSIDE RECORDS SUMMARY | 2024-01-28 16:03 | XMS_ITS | CCD ---
Author Organization [facility] Care Team Providers Care Treasury Director Name Role Phone MD Rebecca Workman Primary Care Provide r MD Rebecca Workman Attending Provider KRANTHI MCPHERSON Primary Care Physician [phone] MD Rebecca Workman Primary Care Provide r MD Rebecca Workman Attending Provider MD Rebecca Workman Primary Care Provide r MD Rebecca Workman Attending Provider IDA [facility] Emergency Provider [phone] SARAH ALANIS Attending Unavailable SARAH ALANIS Attending Unavailable BERTHA TEJADA Admitting Unavailable BERTHA TEJADA Attending Unavailable REQUEST, NONE LISTED Primary Care Unavaila BERTHA Baldwin Admitting Unavailable BERTHA TEJADA Attending Unavailable REQUEST, NONE LISTED Primary Care Unavaila BERTHA Baldwin Admitting Unavailable BERTHA TEJADA Attending Unavailable REQUEST, NONE LISTED Primary Care Unavaila ble DR PIPO MACK Consulting Unavailable BERTHA TEJADA Consulting Unavailable BERTHA [...] Primary Care Unavaila BERTHA Baldwin Admitting Unavailable HIGHLANDER, BERTHA Elias Attending Unavailable REQUEST, NONE LISTED Primary Care Unavaila ble MISC, DR BERNARD Attending Unavailable MISC, DR BERNARD Admitting Unavailable REQUEST, NONE LISTED Primary Care Unavaila ble REQUEST, NONE LISTED Primary Care Unavaila ble MISC, DOCTOR Attending Unavailable MISC, DR BERNARD Consulting Unavailable MISC, DOCTOR Admitting Unavailable MAGNO, YVONNE Attending Unavailable MAGNO, YVONNE Admitting Unavailable GRECHNY ., MARY ELLEN REYNAGA Consulting Unavailabl e REQUEST, NONE LISTED Primary Care Unavaila ble Hause-Wardega, Rebecca Primary Care Unavail able Leyda, Thom Attending Unavailable Leyda, Thom Admitting Unavailable MUTNAL, AMAR Admitting Unavailable MUTNAL, AMAR Attending Unavailable [facility] Primary Care Unavailable JOSE YIP Consulting Unavailable MUTNAL, AMAR Referring Unavailable [facility] Primary Care Unavailable MUTNAL, AMAR Attending Unavailable MUTNAL, AMAR Referring Unavailable [facility] Primary Care Unavailable SCULLIN MOHAMUD Admitting Unavailable SCULLIN, MOHAMUD Attending Unavailable [facility] Primary Care Unavailable AVIVA MCGINNIS Consulting Unavailable BURRELLDINESH Consulting Unavailable MUTNAL, AMAR Consulting Unavailable HAUSE-WARDEGA, REBECCA K Referring Unava ilable MUTNAL, AMAR B Attending Unavailable MUTNAL, AMAR B Attending Unavailable HAUSE-WARDEGA, REBECCA K Attending Unava ilable MUTNAL, AMAR B Referring Unavailable MUTNAL, AMAR B Attending Unavailable MUTNAL, AMAR B Attending Unavailable HAUSE-WARDSARAI, REBECCA K Attending Unava ilable MUTNAL, AMAR B Attending Unavailable MUTNAL, AMAR B Attending Unavailable MUTNAL, AMAR B Attending Unavailable Antonio MERAZ, Rudy Garcia Primary Care Provider BENJI CERON Referring Unava ilable RUDY LI Primary Care Unavailab BENJI Montalvo Attending Unava ilable RUDY LI Primary Care Unavailab BERTHA Nunez Referring Unavaila ble Allergies Allergy Classification Reported Allergen(s) Allergy Type Date of Onset Reaction(s) Facility Unclassified (1 source) ALLERGIES NOT ON FILE; Translations: [ALLERGIES NOT ON FILE] Propensity to adverse reactions (disorder) [facility] Repository (1 source) No Known Medication Allergies; Translations: [No Known Medication Allergies] Propensity to adverse reactions (disorder) [facility] Medications Current Medications Medication Drug Class(es) Dates Sig (Normalized) Sig (Original) acetaminophen 325 mg / HYDROcodone bitartrate 5 mg oral tablet (6 sources) Opioid Agonist Start: 11-19-2018 take 1 tablet by mouth once HYDROcodone-aceta minophen (NORCO) 5-325 mg per tablet Take 5-325 tablets by mouth. 11/19/2018 Active Start: 11-19-2018 take 1 tablet by renata th every six hours Hydrocodone-Acetaminophen Active 1 - 2 T AB PO Q6H November 18, 2018 11:00pm atorvastatin [...] Start upon completion of outpatient IV therapy econazole nitrate 10 mg/ml topical cream (2 sources) Azole Antifungal Start: 11-22-2009 ECONAZOLE 1 % TOPICAL CREAM bid between toes until rash resolved, then for 1 more week Largest 1 11/22/2009 Active gabapentin 600 mg oral tablet (2 sources) Anti-epileptic Agent Start: 11-23-2018 gabapentin (NEURONTIN) 600 mg tablet Indications: Acute bilateral low back pain with sciatica, sciatica laterality unspecified Take 1 tablet by mouth three times daily for 90 days. Take one at HS for 5 days, THEN bid FOR 5 DAYS , THEN three times a day 90 tablet 1 11/23/2018 Active ibuprofen 800 mg oral tablet (2 sources) Nonsteroidal Anti-inflammatory Drug Start: 11-23-2018 take 1 tablet by mouth every eight hours as needed ibuprofen (MOTRIN) 800 mg tablet Indications: Acute bilateral low back pain with sciatica, sciatica laterality unspecified Take 1 tablet by mouth every 8 hours as needed. 90 tablet 1 11/23/2018 Active lisinopril 20 mg oral tablet (1 source) [...] Weight Dosing Start Date: 04/02/22 Status: Ordered oxyCODONE hydrochloride 10 mg oral tablet (2 sources) Opioid Agonist Start: 11-22-2009 OXYCODONE 10 MG TAB 0 11/22/2009 Active predniSONE 10 mg oral tablet (14 sources) Start: 11-23-2018 predniSONE (DELTASONE) 10 mg tablet Indications: Acute bilateral low back pain with sciatica, sciatica laterality unspecified , Weakness of both lower extremities , Herniated lumbar intervertebral disc , Foraminal stenosis of lumbar region , Facet arthropathy, lumbar Take 40 mg for 3 days, then Take 30mg Qam for 3 days, then 20mg Qam for 3 days, then 10mg Qam for 3 days, then 5mg ( 1/2 tablet) Q am FOR 6 DAYS. 33 tablet 12/07/2018 Active Start: 11-19-2018 take 60 mg by mouth [...] MG PO Daily November 18, 2018 11:00pm Start: 11-17-2018 predniSONE (DE LTASONE) 5 mg tablet Take 5 mg by mouth. 0 11/17/2018 Active terbinafine 250 mg oral tablet (2 sources) Allylamine Antifungal Start: 11-23-2009 take 1 tablet by mouth once daily TERBINAFINE 250 MG TAB 1 po daily 30 0 11/23/2009 Active tiZANidine 4 mg oral tablet (2 sources) Central alpha-2 Adrenergic Agonist Start: 11-23-2018 take 1 tablet by mouth at bedtime as needed tiZANidine (ZANAFLEX) 4 mg tablet Indications: Acute bilateral low back pain with sciatica, sciatica laterality unspecified Take 1 tablet by mouth at bedtime as needed. 30 tablet 1 11/23/2018 Active urea 400 mg/ml topical cream (2 sources) Start: 11-22-2009 urea(CARMOL 40 40 % TOPICAL CREAM) bid to heels prn roughness Largest 3 11/22/2009 Active Problems Active Problems Problem Classification Problem Date Documented Da te Episodic/Chronic Administrative/social admission (2 sources) Other reduced mobility; Translations: [Other reduced mobility] Onset: 11-26-2023 Episodic Calculus of urinary tract (1 source) Kidney stone 2019 Episodic Chronic ulcer of skin (16 sources) Pressure ulcer of left heel, stage 3; Translations: [Non-pressure chronic ulcer of left heel and midfoot with fat layer exposed] Onset: 07-26-2022 Chronic Diabetes mellitus with complications (4 sources) Type 2 diabetes mellitus with foot ulcer; Translations: [TYPE 2 DM W/FOOT ULCER] Onset: 08-23-2022 Chronic Disorders of lipid metabolism (2 sources) Pure hypercholesterolemia , unspecified; Translations: [Pure hypercholesterolemia , unspecified] Onset: 11-04-2023 Chronic Essential hypertension (2 [...] disc disorders; other back problems (4 sources) Prolapsed lumbar intervertebral disc; Translations: [Other intervertebral disc displacement, lumbar region] Onset: 12-07-2018 12-07-2018 Chronic Unclassified (1 source) Patient encounter status 04-02-2022 Unclassified (1 source) Cellulitis of left lower limb; Translations: [Cellulitis of left lower limb] Onset: 05-20-2022 Past or Other Problems Problem Classification Problem Date Documented Date Episodic/Chronic Other connective tissue disease (2 sources) Other symptoms and signs involving the musculoskeletal system; Translations: [Other musculoskeletal symptoms referable to limbs] Onset: 11-23-2018 11-23-2018 Episodic Spondylosis; intervertebral disc disorders; other back problems (8 sources) Chronic low back pain; Translations: [Chronic bilateral low back pain] Onset: 11-23-2018 11-19-2018 Episodic Results Test Name Value Interpretation Reference Range Facility Urinalysis, reflex to cultur olivier 11-27-2023 Bilirubin Ql (U) Negative Normal Negative [facility] Comment on above: Performed By: #### U AR #### [facility] [address] [place] [address] Clarity (U) Clear Normal Clear [facility] Comment on above: Performed By: #### U AR #### [facility] [address] [place] [address] Color (U) Yellow Normal Straw/Bolivar [facility] Comment on above: Performed By: #### U AR #### [facility] [address] [place] [address] Glucose Ql (U) Negative Normal Negative [facility] Comment on above: Performed By: #### U AR #### [facility] [address] [place] [address] Hemoglobin Ql (U) Negative Normal Negative [facility] Comment on above: Performed By: #### U AR #### [facility] [address] [place] [address] Ketones Ql (U) Negative Normal Negative [facility] Comment on above: Performed By: #### U AR #### [facility] [address] [place] [address] Leukocyte esterase Test strip Ql (U) Negative Normal Negative [facility] Comment on above: Performed By: #### U AR #### [facility] [address] [place] [address] Nitrite Ql (U) Negative Normal Negative [facility] Comment on above: Performed By: #### U AR #### [facility] [address] [place] [address] pH (U) 5.5 [pH] Normal 5.0-9.0 [facility] Comment on above: Performed By: #### U AR #### [facility] [address] [place] [address] Protein Ql (U) Negative Normal Negative [facility] Comment on above: Performed By: #### U AR #### [facility] [address] [place] [address] Specific gravity (U) [Rel density] 1.014 Normal 1.005-1.03 [facility] Comment on above: Performed By: #### U AR #### [facility] [address] [place] [address] Urine Reflexed to Culture Not Indicated Normal [facility] Comment on above: Performed By: #### U AR #### [facility] [address] [place] [address] Urobilinogen Qn (U) 1.0 {Denisa'U}/dL Normal < 2.0 [facility] Comment on above: Performed By: #### U AR #### [facility] [address] [place] [address] Basic Metabolic Panel Reflex Mgon 11-26-2023 Anion gap [Moles/Vol] 11 mmol/L Normal 9-15 [facility] Comment on above: Performed By: #### B MPX #### [facility] [address] [place] [address] Calcium [Mass/Vol] 7.9 mg/dL Low 8.5-9.9 [facility] Comment on above: Performed By: #### B MPX #### [facility] [address] [place] [address] Chloride [Moles/Vol] 98 mmol/L Normal 95-107 [facility] Comment on above: Performed By: #### B MPX #### [facility] [address] [place] [address] CO2 [Moles/Vol] 23 mmol/L Normal 20-31 [facility] Comment on above: Performed By: #### B MPX #### [facility] [address] [place] [address] Creatinine [Mass/Vol] 1.16 mg/dL Normal 0.70-1.20 [facility] Comment on above: Performed By: #### B MPX #### [facility] [address] [place] [address] GFR 71.7 Normal >60 [facility] Comment on above: Result Comment: Pedi atric calculator link https://www.kidney.org/professionals/kdoqi/gfr_calculatorped Effective Feb 11, [...] secretion. Performed By: #### B MPX #### [facility] [address] [place] [address] Glucose [Mass/Vol] 128 mg/dL Critically high 70-99 [facility] Comment on above: Performed By: #### B MPX #### [facility] [address] [place] [address] Magnesium [Moles/Vol] 4.7 mmol/L Normal 3.4-4.9 [facility] Comment on above: Performed By: #### B MPX #### [facility] [address] [place] [address] Sodium [Moles/Vol] 132 mmol/L Low 135-144 [facility] Comment on above: Performed By: #### B MPX #### [facility] [address] [place] [address] Urea nitrogen [Mass/Vol] 28 mg/dL Critically high 8-23 [facility] Comment on above: Performed By: #### B MPX #### [facility] [address] [place] [address] CBC With Platelet No Differe ntialon 11-26-2023 Erythrocyte distribution width (RBC) [Ratio] 15.1 % Critically high 11.5-14.5 [facility] Comment on above: Performed By: #### C BCND #### [facility] [address] [place] [address] Hematocrit (Bld) [Volume fraction] 30.8 % Low 42.0-52.0 [facility] Comment on above: Performed By: #### C BCND #### [facility] [address] [place] [address] Hemoglobin (Bld) [Mass/Vol] 10.2 g/dL Low 14.0-18.0 [facility] Comment on above: Performed By: #### C BCND #### [facility] [address] [place] [address] MCH (RBC) [Entitic mass] 29.1 pg Normal 27.0-31.3 [facility] Comment on above: Performed By: #### C BCND #### [facility] [address] [place] [address] MCHC 33.1 % Normal 33.0-37.0 [facility] Comment on above: Performed By: #### C BCND #### [facility] [address] [place] [address] MCV (RBC) [Entitic vol] 88.0 fL Normal 79.0-92.2 [facility] Comment on above: Performed By: #### C BCND #### [facility] [address] [place] [address] Platelets (Bld) [#/Vol] 253 10*3/uL Normal 130-400 [facility] Comment on above: Performed By: #### C BCND #### [facility] [address] [place] [address] RBC (Bld) [#/Vol] 3.50 10*6/uL Low 4.70-6.10 [facility] Comment on above: Performed By: #### C BCND #### [facility] [address] [place] [address] WBC (Bld) [#/Vol] 14.9 10*3/uL Critically high 4.8-10.8 [facility] Comment on above: Performed By: #### C BCND #### [facility] [address] [place] [address] FLUORO FOR SURGICAL PROCEDUR ESon 11-25-2023 FLUORO [...] Kranthi Muñoz MD 11/25/23 Final result Normal [facility] XR PELVIS (1-2 VIEWS)on 11-09 XR [...] Kranthi Muñoz MD 11/25/23 Final result Normal [facility] Type and Screen Capture 3 sc rn cellon 11-18-2023 Type and Screen Capture 3 scrn cell PATIENT: LUIS PRESSLEY LOC: [facility] BILL# : [id number] : 1965 SEX: M ORDERED BY: YVETTE Akins ORDERED : 11/18/2023 16:16 COLLECTED: 11/18/2023 16:51 ORDER : [id number] RECEIVED : 11/18/2023 16:51 --- TEST NAME RESULT UNITS RANGES ABN FL ST ABORH Capture A POS F Antibody 3 Cell Scrn Captu NEG F -- Normal [facility] Comment on above: Performed By: #### T S3C #### [facility] [address] [facility] [address] XR CHEST (SINGLE VIEW FRONTA L)on 11-18-2023 [...] Ayana Espinoza MD 11/18/23 Final result Normal [facility] Basic metabolic 2000 panelon 11-04-2023 Anion gap [Moles/Vol] 8 mmol/L Low 10-20 [facility] Comment on above: Performed By: #### 2 4321-2 #### NUPUR LEWISI ([id number]) [facility] ([facility]) [address] [place] [address] Calcium [Mass/Vol] 8.9 mg/dL Normal 8.6-10.3 [facility] Comment on above: Performed By: #### 2 4321-2 #### NUPUR KELLYFRI ([id number]) [facility] ([facility]) [address] [place] [address] Chloride [Moles/Vol] 104 mmol/L Normal 98-107 [facility] Comment on above: Performed By: #### 2 4321-2 #### NUPUR KELLYFRI ([id number]) [facility] ([facility]) [address] [place] [address] CO2 [Moles/Vol] 29 mmol/L Normal 21-32 [facility] Comment on above: Performed By: #### 2 4321-2 #### NUPUR DEX ([id number]) [facility] ([facility]) [address] [place] [address] Creatinine [Mass/Vol] 0.98 mg/dL Normal 0.50-1.30 [facility] Comment on above: Performed By: #### 2 4321-2 #### NUPUR KELLYFRI ([id number]) [facility] ([facility]) [address] [place] [address] Glomerular filtration rate/1.73 sq M.predicted 88 mL/min/1.73m*2 Normal >60 [facility] Comment on above: Result Comment: Calc ulations of estimated GFR are performed using the 2020 CKD-EPI Study Refit equation without the race variable for the IDMS-Traceable creatinine methods. https://jasn.asnjournals.org/content//ASN.00218 03803 Performed By: #### 2 4321-2 #### NUPUR KOWALSKI ([id number]) [facility] ([facility]) [address] [place] [address] Glucose [Mass/Vol] 95 mg/dL Normal 74-99 [facility] Comment on above: Performed By: #### 2 4321-2 #### NUPUR KOWALSKI ([id number]) [facility] ([facility]) [address] [place] [address] Potassium [Moles/Vol] 4.8 mmol/L Normal 3.5-5.3 [facility] Comment on above: Performed By: #### 2 4321-2 #### NUPUR KOWALSKI ([id number]) [facility] ([facility]) [address] [place] [address] Sodium [Moles/Vol] 136 mmol/L Normal 136-145 [facility] Comment on above: Performed By: #### 2 4321-2 #### NUPUR KOWALSKI ([id number]) [facility] ([facility]) [address] [place] [address] Urea nitrogen [Mass/Vol] 15 mg/dL Normal 6-23 [facility] Comment on above: Performed By: #### 2 4321-2 #### NUPUR KOWALSKI ([id number]) [facility] ([facility]) [address] [place] [address] Blood type and Indirect anti body screen panel (Bld)on 11-04-2023 ABO group Nom (Bld) A Normal [facility] Comment on above: Performed By: #### 3 4532-2 #### ANNE-MARIE Crane ([id number]) [facility] ([facility]) [address] [place] [address] Blood group antibody screen Ql Negative Normal [facility] Comment on above: Performed By: #### 3 4532-2 #### ANNE-MARIE Crane ([id number]) [facility] ([facility]) [address] [place] [address] D Ag Ql (Bld) Positive Normal [facility] Comment on above: Result Comment: 2nd ABO test required. Order and Collect VERAB Performed By: #### 3 4532-2 #### ANNE-MARIE Crane ([id number]) [facility] ([facility]) [address] [place] [address] CBC W Auto Differential pane l (Bld)on 11-04-2023 Basophils (Bld) [#/Vol] 0.03 x10*3/uL Normal 0.00-0.10 [facility] Comment on above: Performed By: #### 5 7021-8 #### NUPUR KOWALSKI ([id number]) [facility] ([facility]) [address] [place] [address] Basophils/100 WBC (Bld) 0.3 % Normal 0.0-2.0 [facility] Comment on above: Performed By: #### 5 7021-8 #### NUPUR KOWALSKI ([id number]) [facility] ([facility]) [address] [place] [address] Eosinophils (Bld) [#/Vol] 0.12 x10*3/uL Normal 0.00-0.70 [facility] Comment on above: Performed By: #### 5 7021-8 #### NUPUR KOWALSKI ([id number]) [facility] ([facility]) [address] [place] [address] Eosinophils/100 WBC (Bld) 1.4 % Normal 0.0-6.0 [facility] Comment on above: Performed By: #### 5 7021-8 #### NUPUR KOWALSKI ([id number]) [facility] ([facility]) [address] [place] [address] Erythrocyte distribution width (RBC) [Ratio] 14.6 % High 11.5-14.5 [facility] Comment on above: Performed By: #### 5 7021-8 #### NUPUR KOWALSKI ([id number]) [facility] ([facility]) [address] [place] [address] Hematocrit (Bld) [Volume fraction] 41.8 % Normal 41.0-52.0 [facility] Comment on above: Performed By: #### 5 7021-8 #### NUPUR KOWALSKI ([id number]) [facility] ([facility]) [address] [place] [address] Hemoglobin (Bld) [Mass/Vol] 13.6 g/dL Normal 13.5-17.5 [facility] Comment on above: Performed By: #### 5 7021-8 #### NUPUR KOWALSKI ([id number]) [facility] ([facility]) [address] [place] [address] Immature granulocytes (Bld) [#/Vol] 0.04 x10*3/uL Normal 0.00-0.70 [facility] Comment on above: Performed By: #### 5 7021-8 #### NUPUR KOWALSKI ([id number]) [facility] ([facility]) [address] [place] [address] Immature granulocytes/100 WBC (Bld) 0.5 % Normal 0.0-0.9 [facility] Comment on above: Result Comment: Juany ture Granulocyte Count (IG) includes promyelocytes, myelocytes and metamyelocytes but does not include bands. Percent differential counts (%) should be interpreted in the context of the absolute cell counts (cells/UL). Performed By: #### 5 7021-8 #### NUPUR KOWALSKI ([id number]) [facility] ([facility]) [address] [place] [address] Lymphocytes (Bld) [#/Vol] 1.96 x10*3/uL Normal 1.20-4.80 [facility] Comment on above: Performed By: #### 5 7021-8 #### NUPUR KOWALSKI ([id number]) [facility] ([facility]) [address] [place] [address] Lymphocytes/100 WBC (Bld) 22.1 % Normal 13.0-44.0 [facility] Comment on above: Performed By: #### 5 7021-8 #### NUPUR KOWALSKI ([id number]) [facility] ([facility]) [address] [place] [address] MCH (RBC) [Entitic mass] 29.1 pg Normal 26.0-34.0 [facility] Comment on above: Performed By: #### 5 7021-8 #### NUPUR KOWALSKI ([id number]) [facility] ([facility]) [address] [place] [address] MCHC (RBC) [Mass/Vol] 32.5 g/dL Normal 32.0-36.0 [facility] Comment on above: Performed By: #### 5 7021-8 #### NUPUR KOWALSKI ([id number]) [facility] ([facility]) [address] [place] [address] MCV (RBC) [Entitic vol] 90 fL Normal 80-100 [facility] Comment on above: Performed By: #### 5 7021-8 #### NUPUR KOWALSKI ([id number]) [facility] ([facility]) [address] [place] [address] Monocytes (Bld) [#/Vol] 0.68 x10*3/uL Normal 0.10-1.00 [facility] Comment on above: Performed By: #### 5 7021-8 #### NUPUR KOWALSKI ([id number]) [facility] ([facility]) [address] [place] [address] Monocytes/100 WBC (Bld) 7.7 % Normal 2.0-10.0 [facility] Comment on above: Performed By: #### 5 7021-8 #### NUPUR KOWALSKI ([id number]) [facility] ([facility]) [address] [place] [address] Neutrophils (Bld) [#/Vol] 6.05 x10*3/uL Normal 1.20-7.70 [facility] Comment on above: Result Comment: Perc ent differential counts (%) should be interpreted in the context of the absolute cell counts (cells/uL). Performed By: #### 5 7021-8 #### NUPUR KOWALSKI ([id number]) [facility] [facility] ([facility]) [address] [place] [address] Neutrophils/100 WBC (Bld) 68.0 % Normal 40.0-80.0 [facility] Comment on above: Performed By: #### 5 7021-8 #### NUPUR KOWALSKI ([id number]) [facility] ([facility]) [address] [place] [address] Nucleated RBC/100 WBC (Bld) [Ratio] 0.0 /100 WBCs Normal 0.0-0.0 [facility] Comment on above: Performed By: #### 5 7021-8 #### NUPUR KOWALSKI ([id number]) [facility] ([facility]) [address] [place] [address] Platelets (Bld) [#/Vol] 296 x10*3/uL Normal 150-450 [facility] Comment on above: Performed By: #### 5 7021-8 #### NUPUR KOWALSKI ([id number]) [facility] ([facility]) [address] [place] [address] RBC (Bld) [#/Vol] 4.67 x10*6/uL Normal 4.50-5.90 [facility] Comment on above: Performed By: #### 5 7021-8 #### NUPUR KOWALSKI ([id number]) [facility] ([facility]) [address] [place] [address] WBC (Bld) [#/Vol] 8.9 x10*3/uL Normal 4.4-11.3 [facility] Comment on above: Performed By: #### 5 7021-8 #### NUPUR KOWALSKI ([id number]) [facility] ([facility]) [address] [place] [address] Coagulation tissue factor in ducedon 11-04-2023 PT Coag (PPP) [Time] 11.5 s Normal 9.8-12.8 [facility] Comment on above: Performed By: #### 5 902-2 #### NUPUR KOWALSKI ([id number]) [facility] ([facility]) [address] [place] [address] Hepatic function 2000 panelo n 11-04-2023 Albumin BCP dye [Mass/Vol] 4.0 g/dL Normal 3.4-5.0 [facility] Comment on above: Performed By: #### 2 4325-3 #### NUPUR KOWALSKI ([id number]) [facility] ([facility]) [address] [place] [place] [address] ALP [Catalytic activity/Vol] 91 U/L Normal 33-136 [facility] Comment on above: Performed By: #### 2 4325-3 #### NUPUR KOWALSKI ([id number]) [facility] ([facility]) [address] [place] [address] ALT With P-5'-P [Catalytic activity/Vol] 17 U/L Normal 10-52 [facility] Comment on above: Result Comment: Bettye ents treated with Sulfasalazine may generate falsely decreased results for ALT. Performed By: #### 2 4325-3 #### NUPUR KOWALSKI ([id number]) [facility] ([facility]) [address] [place] [address] AST With P-5'-P [Catalytic activity/Vol] 16 U/L Normal 9-39 [facility] Comment on above: Performed By: #### 2 4325-3 #### NUPUR KOWALSKI ([id number]) [facility] ([facility]) [address] [place] [address] Bilirubin [Mass/Vol] 0.6 mg/dL Normal 0.0-1.2 [facility] Comment on above: Performed By: #### 2 4325-3 #### NUPUR KOWALSKI ([id number]) [facility]) [address] [place] [address] Bilirubin.direct [Mass/Vol] 0.1 mg/dL Normal 0.0-0.3 [facility] Comment on above: Performed By: #### 2 4325-3 #### NUPUR KOWALSKI ([id number]) [facility] ([facility]) [address] [place] [address] Protein [Mass/Vol] 6.7 g/dL Normal 6.4-8.2 [facility] Comment on above: Performed By: #### 2 4325-3 #### NUPUR KOWALSKI ([id number]) [facility]) [address] [place] [address] Iron and Iron binding capaci ty panelon 11-04-2023 Iron [Mass/Vol] 47 ug/dL Normal 35-150 [facility] Comment on above: Performed By: #### 5 0190-8 #### NUPUR KOWALSKI ([id number]) [facility] ([facility]) [address] [place] [address] Iron binding capacity [Mass/Vol] 302 ug/dL Normal 240-445 [facility] Comment on above: Performed By: #### 5 0190-8 #### NUPUR KOWALSKI ([id number]) [facility] ([facility]) [address] [place] [address] Iron binding capacity.unsaturated [Mass/Vol] 255 ug/dL Normal 110-370 [facility] Comment on above: Performed By: #### 5 0190-8 #### NUPUR KOWALSKI ([id number]) [facility] ([facility]) [address] [place] [address] Iron saturation [Mass fraction] 16 % Low 25-45 [facility] Comment on above: Performed By: #### 5 0190-8 #### NUPUR KOWALSKI ([id number]) [facility] ([facility]) [address] [place] [address] Lipid 1996 panelon 4 Cholesterol [Mass/Vol] 135 mg/dL Normal 0-199 [facility] Comment on above: Result Comment: Age Desirable [...] By: #### 2 4331-1 #### NUPUR KOWALSKI ([id number]) [facility]) [address] [place] [address] Cholesterol in HDL [Mass/Vol] 34.6 mg/dL Normal [facility] Comment on above: Result Comment: Age Very Low Low Normal High 0-19 Y < 35 < 40 40-45 ---- 20-24 Y ---- < 40 >45 ---- >24 Y ---- < 40 40-60 >60 Performed By: #### 2 4331-1 #### NUPUR KOWALSKI ([id number]) [facility]) [address] [place] [address] Cholesterol in LDL [Mass/Vol] 65 mg/dL Normal <=99 [facility] Comment on above: Result Comment: Near Borderline AGE Desirable Optimal High High Very High 0-19 Y 0 - 109 --- 110-129 >/= 130 ---- 20-24 Y 0 - 119 --- 120-159 >/= 160 ---- >24 Y 0 - 99 100-129 130-159 160-189 >/=190 Performed By: #### 2 4331-1 #### NUPUR KOWALSKI ([id number]) [facility]) [address] [facility] [place] [address] Cholesterol in VLDL [Mass/Vol] 35 mg/dL Normal 0-40 [facility] Comment on above: Performed By: #### 2 4331-1 #### NUPUR KOWALSKI ([id number]) [facility]) [address] [place] [address] CHOLESTEROL/HDL RATIO 3.9 Normal [facility] Comment on above: Result Comment: Ref Values Desirable < 3.4 High Risk > 5.0 Performed By: #### 2 4331-1 #### NUPUR KOWALSKI ([id number]) [facility] ([facility]) [address] [place] [address] NON HDL CHOLESTEROL 100 mg/dL Normal 0-149 [facility] Comment on above: Result Comment: Age Desirable Borderline High High Very High 0-19 Y 0 - 119 120 - 144 >/= 145 >/= 160 20-24 Y 0 - 149 150 - 189 >/= 190 ---- >24 Y 30 mg/dL above LDL Cholesterol goal Performed By: #### 2 4331-1 #### NUPUR KOWALSKI ([id number]) [facility] ([facility]) [address] [place] [address] Triglyceride [Mass/Vol] 176 mg/dL High 0-149 [facility] Comment on above: Result Comment: Age [...] By: #### 2 4331-1 #### NUPUR KOWALSKI ([id number]) [facility] ([facility]) [address] [place] [address] PSA, TOTAL AND FREEon 2023 Free PSA [Mass/Vol] 0.2 ng/mL Normal [facility] Comment on above: Performed By: #### P SAFT #### INGA GABRIEL) ([id number]) [address] [place] [address] Free PSA/Total PSA [Mass fraction] 22 % Normal [facility] Comment on above: Result Comment: INTE RPRETIVE INFORMATION: Prostate Specific Antigen, Free Percentage [employer] uses the Nataliia Free PSA electrochemiluminescent immunoassay method in conjunction with the Nataliia PSA electrochemiluminescent immunoassay method to determine the [...] prostate cancer in individual patients. Performed By: [facility] [address] [place] [address] Desulfurizer Operator: Smooth Hallman MD, PhD CLIA Number: [id number] Performed By: #### P SAFT #### [employer]) ([id number]) [address] [place] [address] Prostate specific Ag IA [Mass/Vol] 0.9 ng/mL Normal 0.0-4.0 [facility] Comment on above: Result Comment: INTE RPRETIVE [...] carcinoma. Performed By: #### P SAFT #### [employer]) ([id number]) [address] [place] [address] PT Coag (PPP) [Time]on 11-03 INR Coag (PPP) [Relative time] 1.0 Normal 0.9-1.1 [facility] Comment on above: Performed By: #### 5 902-2 #### NUPUR KOWALSKI ([id number]) [facility] ([facility]) [address] [place] [address] Thyrotropinon 11-04-2023 TSH Qn 2.05 m[IU]/L Normal 0.44-3.98 [facility] Comment on above: Order Comment: TSH t esting is performed using different testing methodology at [facility] than at other [facility]. Direct result comparisons should only be made within the same method. Performed By: #### 3 016-3 #### NUPUR KOWALSKI ([id number]) [facility] ([facility]) [address] [place] [address] Urinalysis complete panel (U )on 11-04-2023 Appearance (U) Clear Normal Clear [facility] Comment on above: Performed By: #### 2 4356-8 #### NUPUR KOWALSKI ([id number]) [facility] ([facility]) [address] [place] [address] Bilirubin (U) [Mass/Vol] Negative Normal NEGATIVE [facility] Comment on above: Performed By: #### 2 4356-8 #### NUPUR KOWALSKI ([id number]) [facility] ([facility]) [address] [place] [address] Color (U) Light-Yellow Normal Light-Yello w, Yellow, Dark-Yellow [facility] Comment on above: Performed By: #### 2 4356-8 #### NUPUR KOWALSKI ([id number]) [facility] ([facility]) [address] [place] [address] Glucose Auto test strip (U) [Mass/Vol] Normal Normal Normal [facility] Comment on above: Performed By: #### 2 4356-8 #### NUPUR KOWALSKI ([id number]) [facility] ([facility]) [address] [place] [address] Ketones (U) [Mass/Vol] Negative Normal NEGATIVE [facility] on above: Performed By: #### 2 4356-8 #### NUPUR KOWALSKI ([id number]) [facility] ([facility]) [address] [place] [address] Leukocyte esterase Auto test strip Ql (U) Negative Normal NEGATIVE [facility] Comment on above: Performed By: #### 2 4356-8 #### NUPUR KOWALSKI ([id number]) [facility] ([facility]) [address] [place] [address] Nitrite Auto test strip Ql (U) Negative Normal NEGATIVE [facility] Comment on above: Performed By: #### 2 435-8 #### NUPUR KOWALSKI ([id number]) [facility] ([facility]) [address] [place] [address] pH (U) 6.5 [pH] Normal 5.0, 5.5, 6.0, 6.5, 7.0, 7.5, 8.0 [facility] Comment on above: Performed By: #### 2 4356-8 #### NUPUR KOWALSKI ([id number]) [facility] ([facility]) [address] [facility] [place] [address] Protein (U) [Mass/Vol] Negative Normal NEGAT EDDIE, 10 (TRACE), 20 (TRACE) [facility] Comment on above: Performed By: #### 2 4356-8 #### NUPUR KOWALSKI ([id number]) [facility] ([facility]) [address] [place] [address] RBC (U) [#/Vol] Negative Normal NEGATIVE [facility] Comment on above: Performed By: #### 2 4356-8 #### NUPUR KOWALSKI ([id number]) [facility] ([facility]) [address] [place] [address] Specific gravity (U) [Rel density] 1.012 Normal 1.005-1.035 [facility] Comment on above: Performed By: #### 2 4356-8 #### NUPUR KOWALSKI ([id number]) [facility] [address] [place] [address] Urobilinogen (U) [Mass/Vol] Normal Normal Normal [facility] Comment on above: Performed By: #### 2 4356-8 #### NUPUR DEX ([id number]) [facility] [address] [place] [address] XR HIP 4+ VW RIGHTon 024 XR [...] AYANA ZUÑIGA Date: 2022-10-09 20:00 Normal [facility] [place] [facility] CBC AUTO DIFFon 07-26-2022 BASO # 0.1 103/ul Normal 0.0-0.1 [facility] Comment on above: Performed By: #### C BC #### [facility] [place] [facility] [address] [address] [address] Darien Mason Basophils/100 WBC (Bld) 0.5 % Normal 0.2-2.0 [facility] Comment on above: Performed By: #### C BC #### [facility] [place] [facility] [address] [address] [address] Darien Mason EO # 0.2 103/ul Normal 0.0-0.7 [facility] Comment on above: Performed By: #### C BC #### [facility] [place] [facility] [address] [place] [address] Dr. Darien Mason Eosinophils/100 WBC (Bld) 2.2 % Normal 0.9-7.0 [facility] Comment on above: Performed By: #### C BC #### [facility] [place] [facility] [address] [place] [address] Dr. Darien aMson Erythrocyte distribution width (RBC) [Ratio] 15.9 % Critically high 11.0-15.0 [facility] Comment on above: Performed By: #### C BC #### [facility] [place] [facility] [address] [place] [address] Dr. Darien Mason Hematocrit (Bld) [Volume fraction] 37.7 % Critically low 42.0-54.0 [facility] Comment on above: Performed By: #### C BC #### [facility] [place] [facility] [address] [place] [address] Dr. Darien Mason Hemoglobin (Bld) [Mass/Vol] 11.3 g/dL Critically low 14.0-18.0 [facility] Comment on above: Performed By: #### C BC #### [facility] [place] [facility] [address] [place] [address] Dr. Darien Mason IG # 0.10 10e3/ul Critically high 0.00-0.03 [facility] Comment on above: Performed By: #### C BC #### [facility] [place] [facility] [address] [place] [address] Dr. Darien Mason IG % 0.9 % Critically high 0.0-0.5 [facility] [place] [facility] Comment on above: Performed By: #### C BC #### [facility] [place] [facility] [address] [place] [address] Dr. Darien Mason LYMPH # 2.7 103/ul Normal 1.2-3.8 [facility] [place] [facility] Comment on above: Performed By: #### C BC #### [facility] [place] [facility] [address] [place] [address] Dr. Darien Mason Lymphocytes/100 WBC (Bld) 24.0 % Normal 20.5-60.0 [facility] Comment on above: Performed By: #### C BC #### [facility] [place] [facility] [address] [place] [address] Dr. Darien Mason MANUAL DIFF REQ NO Normal [facility] Comment on above: Performed By: #### C BC #### [facility] [place] [facility] [address] [place] [address] Dr. Darien Mason MCH (RBC) [Entitic mass] 25.3 pg Critically low 25.9-34.0 [facility] Comment on above: Performed By: #### C BC #### [facility] [place] [facility] [address] [place] [address] Dr. Darien Mason MCHC (RBC) [Mass/Vol] 30.0 g/dL Normal 29.9-35.2 [facility] [place] [facility] Comment on above: Performed By: #### C BC #### [facility] [place] [facility] [address] [place] [address] Dr. Darien Mason MCV (RBC) [Entitic vol] 84.5 fL Normal 80.0-94.0 [facility] Comment on above: Performed By: #### C BC #### [facility] [place] [facility] [address] [place] [address] Dr. Darien Mason MONO # 0.7 103/ul Normal 0.3-0.8 [facility] Comment on above: Performed By: #### C BC #### [facility] [place] [facility] [address] [place] [address] Dr. Darien Mason Monocytes/100 WBC (Bld) 6.0 % Normal 1.7-12.0 [facility] Comment on above: Performed By: #### C BC #### [facility] [place] [facility] [address] [place] [address] Dr. Darien Mason NEUT # 7.4 103/ul Critically high 1.4-6.5 [facility] [place] [facility] Comment on above: Performed By: #### C BC #### [facility] [place] [facility] [address] [place] [address] Dr. Darien Mason Neutrophils/100 WBC (Bld) 66.4 % Normal 43.0-75.0 [facility] [place] [facility] Comment on above: Performed By: #### C BC #### [facility] [place] [facility] [address] [address] [address] Darien Mason Platelet mean volume (Bld) [Entitic vol] 8.8 fL Critically low 9.5-13.5 [facility] Comment on above: Performed By: #### C BC #### [facility] [place] [facility] [address] [address] [address] Darien Mason PLT 499 103/ul Critically high 150-450 [facility] [place] [facility] Comment on above: Performed By: #### C BC #### [facility] [place] [facility] [address] [address] [address] Darien Mason RBC 4.46 106/ul Critically low 4.70-6.10 [facility] Comment on above: Performed By: #### C BC #### [facility] [place] [facility] [address] [place] [address] Dr. Darien Mason WBC 11.1 103/ul Critically high 4.0-11.0 [facility] Comment on above: Performed By: #### C BC #### [facility] [place] [facility] [address] [place] [address] Dr. Darien Mason CRPon 07-26-2022 CRP 5.6 mg/dL Critically high <=1.0 [facility] Comment on above: Performed By: #### B MP, CRP #### [facility] [place] [facility] [address] [place] [address] Dr. Darien Mason PROF CHEM 8 (BAS METB)on Anion gap [Moles/Vol] 12.1 mmol/L Normal [facility] Comment on above: Performed By: #### B MP, CRP #### [facility] [place] [facility] [address] [place] [address] Dr. Darien Mason Calcium [Mass/Vol] 8.9 mg/dL Normal 8.5-10.1 [facility] [place] [facility] Comment on above: Performed By: #### B MP, CRP #### [facility] [place] [facility] [address] [place] [address] Dr. Darien Mason Chloride [Moles/Vol] 102 mmol/L Normal 98-107 [facility] [place] [facility] Comment on above: Performed By: #### B MP, CRP #### [facility] [place] [facility] [address] [address] [address] Darien Mason CO2 [Moles/Vol] 28.0 mmol/L Normal 21.0-32.0 [facility] [place] [facility] Comment on above: Performed By: #### B MP, CRP #### [facility] [facility] [address] [address] [address] Darien Mason Creatinine [Mass/Vol] 0.85 mg/dL Normal 0.70-1.30 [facility] [place] [facility] Comment on above: Performed By: #### B MP, CRP #### [facility] [place] [facility] [address] [address] [address] Darien Mason EGFR-AF HONDURAN >60 Normal >=60 [facility] [place] [facility] Comment on above: Performed By: #### B MP, CRP #### [facility] [facility] [address] [address] [address] Darien Mason EGFR-NON AF HONDURAN >60 Normal >=60 [facility] [place] [facility] Comment on above: Performed By: #### B MP, CRP #### [facility] [place] [facility] [address] [address] [address] Darien Mason Glucose [Mass/Vol] 83 mg/dL Normal 74-106 [facility] [place] [facility] Comment on above: Performed By: #### B MP, CRP #### [facility] [facility] [address] [address] [address] Darien Mason Potassium [Moles/Vol] 4.1 mmol/L Normal 3.5-5.1 [facility] [place] [facility] Comment on above: Performed By: #### B MP, CRP #### [facility] [address] [address] [address] Darien Mason Sodium [Moles/Vol] 138 mmol/L Normal 136-145 [facility] [facility] Comment on above: Performed By: #### B MP, CRP #### [facility] [address] [address] [address] Darien Mason Urea nitrogen [Mass/Vol] 9.0 mg/dL Normal 7.0-18.0 [facility] [facility] Comment on above: Performed By: #### B MP, CRP #### [facility] [address] [address] [address] Darien Mason Urea nitrogen/Creatinine [Mass ratio] 10.6 mg/mg Normal [facility] Comment on above: Performed By: #### B MP, CRP #### [facility] [id number] Darien Mason SED RATE WESTERGRENon 2022 SED RATE 86 mm/hr Critically high <=20 [facility] Comment on above: Performed By: #### S EDR #### [facility] [address] [address] [address] Darien Mason Patient Educationon 05-30-19 Patient Education Normal [facility] Provider Letteron 05-30-2022 Provider Letter (Inserted Image. Kay ble to display) May 30, 2022 WENDIE SORENSEN JR [address] [place] [id number] WENDIE SORENSEN JR 1965 Dear Wendie, You [...] do appreciate your understanding. Sincerely, [facility] [address] [place] [address] Normal [facility] Basophils Auto (Bld) [#/Vol] Ordered By: Thom Crabtree on 05-18-2022 Basophils (Bld) [#/Vol] 0.1 10*3/uL 0.0-0.2 [facility] Basophils/100 WBC Auto (Bld) Ordered By: Thom Crabtree on 05-18-2022 Basophils/100 WBC (Bld) 0.6 % . [facility] Bilirubin Test strip Ql (U)O rdered By: Thom Crabtree on 05-18-2022 Bilirubin Ql (U) Negative Negative [facility] Body fluid albumin measureme nt (mass/volume)Ordered By: Thom Crabtree on 05-18-2022 Albumin (Body fld) [Mass/Vol] 3.9 g/dL 3.2-5.5 [facility] Color Auto (U)Ordered By: Shiva Crabtree on 05-18-2022 Color (U) Yellow Yellow [facility] Creatinine and Glomerular fi ltration rate.predicted panel (S/P/Bld)Ordered By: Thom Crabtree on 05-18-2022 Creatinine [Mass/Vol] 0.93 mg/dL 0.64-1.27 [facility] Eosinophils Auto (Bld) [#/Vo l]Ordered By: Thom Crabtree on 05-18-2022 Eosinophils (Bld) [#/Vol] 0.1 10*3/uL 0.0-0.45 [facility] Eosinophils/100 WBC Auto (Bl d)Ordered By: Thom Crabtree on 05-18-2022 Eosinophils/100 WBC (Bld) 1.1 % . [facility] Erythrocyte distribution wid th Auto (RBC) [Ratio]Ordered By: Thom Crabtree on 05-18-2022 Erythrocyte distribution width (RBC) [Ratio] 15.8 % 12.0-14.8 [facility] Estimated glomerular filtrat ion rate (GFR) non- AmericanOrdered By: Thom Crabtree on 05-18-2022 GFR/1.73 sq M.predicted among non-blacks MDRD (S/P/Bld) [Vol rate/Area] > 60 mL/Min [facility] Globulin Calc (S) [Mass/Vol] Ordered By: Thom Crabtree on 05-18-2022 Globulin (S) [Mass/Vol] 3.8 g/dL [facility] Hematocrit Auto (Bld) [Volum e fraction]Ordered By: Thom Crabtree on 05-18-2022 Hematocrit (Bld) [Volume fraction] 40.5 % 38.8-50.0 [facility] Hemoglobin [Mass/volume] in BloodOrdered By: Thom Crabtree on 05-18-2022 Hemoglobin (Bld) [Mass/Vol] 13.4 g/dL 13.0-17.0 [facility] Ketones Auto test strip (U) [Mass/Vol]Ordered By: Thom Crabtree on 05-18-2022 Ketones (U) [Mass/Vol] Negative Negative [facility] Leukocytes [#/volume] correc susan for nucleated erythrocytes in Blood by Automated counOrdered By: Thom Crabtree on 05-18-2022 WBC corrected for nucl RBC Auto (Bld) [#/Vol] 13.7 10*3/uL 4.1-10.5 [facility] Lymphocytes Auto (Bld) [#/Vo l]Ordered By: Thom Crabtree on 05-18-2022 Lymphocytes (Bld) [#/Vol] 2.0 10*3/uL 1.00-4.8 [facility] Lymphocytes/100 WBC Auto (Bl d)Ordered By: Thom Crabtree on 05-18-2022 Lymphocytes/100 WBC (Bld) 14.4 % . [facility] MCH Auto (RBC) [Entitic mass ]Ordered By: Thom Crabtree on 05-18-2022 MCH (RBC) [Entitic mass] 28.2 pg 27.5-35.2 [facility] MCHC Auto (RBC) [Mass/Vol]Or dered By: Thom Crabtree on 05-18-2022 MCHC (RBC) [Mass/Vol] 33.0 g/dL 32.5-35.6 [facility] MCV Auto (RBC) [Entitic vol] Ordered By: Thom Crabtree on 05-18-2022 MCV (RBC) [Entitic vol] 85.4 fL 83.5-101 [facility] Monocyte distribution width [Entitic volume] in Blood by AutomatedOrdered By: Thom Crabtree on 05-18-2022 Monocyte distribution width Auto (Bld) [Entitic vol] 18.29 % 0.00-20.00 [facility] Monocytes Auto (Bld) [#/Vol] Ordered By: Thom Crabtree on 05-18-2022 Monocytes (Bld) [#/Vol] 1.0 10*3/uL 0.0-0.8 [facility] Monocytes/100 WBC Auto (Bld) Ordered By: Thom Crabtree on 05-18-2022 Monocytes/100 WBC (Bld) 7.3 % . [facility] Neutrophils Auto (Bld) [#/Vo l]Ordered By: Thom Carbtree on 05-18-2022 Neutrophils (Bld) [#/Vol] 10.5 10*3/uL 1.8-7.7 [facility] Neutrophils/100 WBC Auto (Bl d)Ordered By: Thom Crabtree on 05-18-2022 Neutrophils/100 WBC (Bld) 76.6 % . [facility] Nitrite Test strip Ql (U)Ord ered By: Thom Crabtree on 05-18-2022 Nitrite Ql (U) Negative Negative [facility] No Panel InformationOrdered By: Thom Crabtree on 05-18-2022 Estimated GFR () > 60 mL/Min [facility] Comment on above: GFR estimated refere nce range: According to KDOQI guidelines, <60 ml/min/1.73m2 is sufficient to diagnose a patient with chronic kidney disease. Pharmacy Creatinine Clearance (Chem 116.23 [facility] Nucleated erythrocytes [Pres ence] in Blood by Automated countOrdered By: Thom Crabtree on 05-18-2022 Nucleated RBC Auto Ql (Bld) 0.1 /100{WBC} 0-0.5 [facility] Platelet mean volume Auto (B ld) [Entitic vol]Ordered By: Thom Crabtree on 05-18-2022 Platelet mean volume (Bld) [Entitic vol] 7.4 fL 6.6-10.1 [facility] Platelets Auto (Bld) [#/Vol] Ordered By: Thom Crabtree on 05-18-2022 Platelets (Bld) [#/Vol] 370 10*3/uL 150-450 [facility] Protein Auto test strip (U) [Mass/Vol]Ordered By: Thom Crabtree on 05-18-2022 Protein (U) [Mass/Vol] Negative Negative [facility] Protein [Mass/volume] in Ser um or PlasmaOrdered By: Thom Crabtree on 05-18-2022 Protein [Mass/Vol] 7.7 g/dL 6.1-7.9 [facility] RBC Auto (Bld) [#/Vol]Ordere d By: Thom Crabtree on 05-18-2022 RBC (Bld) [#/Vol] 4.74 10*6/uL 3.90-5.60 [facility] Serum or plasma alanine shah otransferase measurement without P-5'-P (enzymatic activiOrdered By: Thom Crabtree on 05-18-2022 ALT No additional P-5'-P [Catalytic activity/Vol] 19 U/L 10-60 [facility] Serum or plasma albumin/glob ulin mass ratioOrdered By: Thom Crabtree on 05-18-2022 Albumin/Globulin [Mass ratio] 1.0 {ratio} [facility] Serum or plasma alkaline ric sphatase measurement (enzymatic activity/volume)Ordered By: Thom Crabtree on 05-18-2022 ALP [Catalytic activity/Vol] 95 U/L 32-92 [facility] Serum or plasma anion gap de terminationOrdered By: Thom Crabtree on 05-18-2022 Anion gap [Moles/Vol] 14.7 mmol/L 6.0-15.0 [facility] Serum or plasma aspartate am inotransferase measurement (enzymatic activity/volume)Ordered By: Thom Crabtree on 05-18-2022 AST [Catalytic activity/Vol] 20 U/L 10-42 [facility] Serum or plasma calcium ashley urement (mass/volume)Ordered By: Thom Crabtree on 05-18-2022 Calcium [Mass/Vol] 9.3 mg/dL 8.2-10.2 [facility] Serum or plasma chloride efraín surement (moles/volume)Ordered By: Thom Crabtree on 05-18-2022 Chloride [Moles/Vol] 100 mmol/L 95-114 [facility] Serum or plasma glucose ashley urement (mass/volume)Ordered By: Thom Crabtree on 05-18-2022 Glucose [Mass/Vol] 93 mg/dL 70-100 [facility] Comment on above: ADA recommended refe rence rangeRandom Glucose Reference Range is dependent on time and content of last meal. Glucose of more than 200 mg/dL in a nonstressed, ambulatory subject supports the diagnosis of Diabetes Mellitus. Serum or plasma potassium me asurement (moles/volume)Ordered By: Thom Crabtree on 05-18-2022 Potassium [Moles/Vol] 4.4 mmol/L 3.5-5.1 [facility] Serum or plasma sodium measu rement (moles/volume)Ordered By: Thom Crabtree on 05-18-2022 Sodium [Moles/Vol] 136 mmol/L 136-146 [facility] Serum or plasma total biliru bin measurement (mass/volume)Ordered By: Thom Crabtree on 05-18-2022 Bilirubin [Mass/Vol] 0.5 mg/dL 0.3-1.2 [facility] Serum or plasma total carbon dioxide measurement (moles/volume)Ordered By: Thom Crabtree on 05-18-2022 CO2 [Moles/Vol] 25.7 mmol/L 22.0-30.0 [facility] Serum or plasma urea nitroge n measurement (mass/volume)Ordered By: Thom Crabtree on 05-18-2022 Urea nitrogen [Mass/Vol] 12 mg/dL 9-23 [facility] Specific gravity Auto test s trip (U) [Rel density]Ordered By: Thom Crabtree on 05-18-2022 Specific gravity (U) [Rel density] 1.016 1.001-1.030 [facility] Urine clarity by refractomet ry automatedOrdered By: Thom Crabtree on 05-18-2022 Clarity Refractometry automated (U) Clear Clear [facility] Urine glucose measurement by automated test strip (mass/volume)Ordered By: Thom Crabtree on 05-18-2022 Glucose Auto test strip (U) [Mass/Vol] Normal mg/dL Normal [facility] Urine hemoglobin detection b y automated test stripOrdered By: Thom Crabtree on 05-18-2022 Hemoglobin Auto test strip Ql (U) Negative Negative [facility] Urine leukocyte esterase det ection by automated test stripOrdered By: Thom Crabtree on 05-18-2022 Leukocyte esterase Auto test strip Ql (U) Negative Negative [facility] Urobilinogen Auto test strip (U) [Mass/Vol]Ordered By: Thom Crabtree on 05-18-2022 Urobilinogen (U) [Mass/Vol] Normal mg/dL Normal [facility] WBC Auto (Bld) [#/Vol]Ordere d By: Thom Crabtree on 05-18-2022 WBC (Bld) [#/Vol] 13.7 10*3/uL 4.1-10.5 [facility] pH Auto test strip (U)Ordere d By: Thom Crabtree on 05-18-2022 pH (U) 5.5 [pH] 5.0-9.0 [facility] Ambulatory Visit Summaryon 1 06-02-2021 Ambulatory Visit Summary WENDIE SORENSEN JR :1965 Visit Date:04/02/2022 Ambulatory Visit Instructions Your Diagnosis Urinary frequency Erectile dysfunction Incomplete bladder emptying Prostate cancer screening Tests Performed Urnls Dip Stick Auto w/o Microscopy POC 66279 Your Care Team Attending Physician - SARAH [...] SARAH ALANIS PA-C Where: [facility] Patient Educationon 04-02-20 Patient Education Urology Erectile [...] these instructions at home: Medicines ? Take ljzs-lxc-gfznyrq and prescription medicines only as told by [...] of your (more content not included)... Normal [facility] Urology Office/Clinic Noteon 04-02-2022 Urology Office/Clinic [...] E&M of Est. Patient Moderate 30-39 Min 92932 2. Erectile dysfunction (N52.9: Male erectile dysfunction, [...] E&M of Est. Patient Moderate 30-39 Min 01880 3. Incomplete bladder emptying (R33.9: Retention of urine, unspecified) PVR >350ml in office 2018. PVR 178ml uros May 2019. PVR today 146ml. discussed risks of retention. will need to monitor closely as we are starting anticholinergic for nocturia. PVR next visit. Ordered: E&M of Est. Patient Moderate 30-39 Min 37690 4. Prostate cancer screening (Z12.5: Encounter for screening for malignant neoplasm of prostate) Current PSA 0.600 done on 01/24/22. Ordered: E&M of Est. Patient Moderate 30-39 Min 75173 5. Fecal incontinence (R15.9: Full incontinence of feces) recommended he discuss w PCP. may need increased fiber or bulking agents. may need GI referral. Orders: oxybutynin, = 1 tab(s), Oral, Bedtime, # 30 tab(s), Refills(s) 11, called to pharmacy (Rx), 177, cm, 04/02/22 10:20:00 EST, Height/Length Dosing, 113, kg, 04/02/22 10:20:00 EST, Weight Dosing Urnls Dip Stick Auto w/o Microscopy POC 15569 f/u 6 weeks Follow-up With When Contact Information SARAH ALANIS PA-C, URL Within 6 weeks [address] [place] [address] [facility] (1) Additional Instructions: Patient Education Erectile Dysfunction Problem List/Past Medical History Ongoing Erectile dysfunction Fecal incontinence Hesitancy Incomplete bladder emptying Kidney stone Neurogenic bladder Nocturia Prostate cancer screening Urinary frequency Weak urine stream Historical BPH with urinar (more content not included)... Normal [facility] Comment on above: Result Comment: Elec tronically Signed By: SARAH ALANIS PA-C\.br\Date and Time Signed: 04/02/22 11:27 EST Albumin [Mass/volume] in Ser um or PlasmaOrdered By: Rebecca Workman on 2022 Albumin [Mass/Vol] 3.7 g/dL 3.2-5.5 [facility] Basophils Auto (Bld) [#/Vol] Ordered By: Rebecca Workman on 2022 Basophils (Bld) [#/Vol] 0.0 10*3/uL 0.0-0.2 [facility] Basophils/100 WBC Auto (Bld) Ordered By: Rebecca Workman on 2022 Basophils/100 WBC (Bld) 0.5 % . [facility] Blood hemoglobin measurement (mass/volume)Ordered By: Rebecca Workman on 2022 Hemoglobin (Bld) [Mass/Vol] 13.4 g/dL 13.0-17.0 [facility] Blood leukocytes automated c ount (number/volume)Ordered By: Rebecca Rosales on 2022 WBC (Bld) [#/Vol] 8.5 10*3/uL 4.5-11.0 [facility] Cholesterol [Mass/volume] in Serum or PlasmaOrdered By: Rebecca Workman on 2022 Cholesterol [Mass/Vol] 151 mg/dL 140-200 [facility] Comment on above: Chol less than 200 m g/dl low risk Chol 201-239 mg/dl borderline risk Chol 240 mg/dl and greater high risk Chol less than 200 m g/dl low riskChol 201-239 mg/dl borderline riskChol 240 mg/dl and greater high risk Cholesterol in LDL Calc [Mas s/Vol]Ordered By: Rebecca Workman on 2022 Cholesterol in LDL [Mass/Vol] 89 mg/dL 0-100 [facility] Comment on above: LDL ATP III CLASSIFI [...] 2022 Cholesterol in VLDL [Mass/Vol] 27 mg/dL [facility] Creatinine and Glomerular fi ltration rate.predicted panel (S/P/Bld)Ordered By: Rebecca Workman on 2022 Creatinine [Mass/Vol] 0.94 mg/dL 0.64-1.27 [facility] Eosinophils Auto (Bld) [#/Vo l]Ordered By: Rebecca Workman on 2022 Eosinophils (Bld) [#/Vol] 0.2 10*3/uL 0.0-0.45 [facility] Eosinophils/100 WBC Auto (Bl d)Ordered By: Rebecca Workman on 2022 Eosinophils/100 WBC (Bld) 2.9 % . [facility] Erythrocyte distribution wid th Auto (RBC) [Ratio]Ordered By: Rebecca Rosales on 2022 Erythrocyte distribution width (RBC) [Ratio] 15.5 % 12.0-14.8 [facility] Estimated glomerular filtrat ion rate (GFR) non- AmericanOrdered By: Rebecca Workman on 2022 GFR/1.73 sq M.predicted among non-blacks MDRD (S/P/Bld) [Vol rate/Area] > 60 mL/Min [facility] Globulin Calc (S) [Mass/Vol] Ordered By: Rebecca Workman on 2022 Globulin (S) [Mass/Vol] 3.0 g/dL [facility] Glucose mean value [Mass/vol ume] in Blood Estimated from glycated hemoglobinOrdered By: Rebecca Workman on 2022 Average glucose Estimated from glycated hemoglobin (Bld) [Mass/Vol] 114 mg/dL [facility] Hematocrit Auto (Bld) [Volum e fraction]Ordered By: Rebecca Workman on 2022 Hematocrit (Bld) [Volume fraction] 40.6 % 38.8-50.0 [facility] Hemoglobin A1c percentageOrd ered By: Rebecca Workman on 2022 HbA1c (Bld) [Mass fraction] 5.6 % 4.3-5.6 [facility] Comment on above: Increased risk for d iabetes: 5.7 - 6.4 diabetes: >6.4 glycemic control for adults with diabetes: <7.0 Increased risk for d iabetes: 5.7 - 6.4diabetes: >6.4glycemic control for adults with diabetes: <7.0 Laboratory - Hematology and Cell countsOrdered By: Rebecca Workman on 2022 Nucleated RBC/100 WBC (Bld) [Ratio] 0.0 % 0-0.5 [facility] Lymphocytes Auto (Bld) [#/Vo l]Ordered By: Rebecca Workman on 2022 Lymphocytes (Bld) [#/Vol] 2.0 10*3/uL 1.00-4.8 [facility] Lymphocytes/100 WBC Auto (Bl d)Ordered By: Rebecca Workman on 2022 Lymphocytes/100 WBC (Bld) 24.2 % . [facility] MCH Auto (RBC) [Entitic mass ]Ordered By: Rebecca Workman on 2022 MCH (RBC) [Entitic mass] 28.5 pg 27.5-35.2 [facility] MCHC Auto (RBC) [Mass/Vol]Or dered By: Rebecca Workman on 2022 MCHC (RBC) [Mass/Vol] 32.9 g/dL 32.5-35.6 [facility] MCV Auto (RBC) [Entitic vol] Ordered By: Rebecca Workman on 2022 MCV (RBC) [Entitic vol] 86.8 fL 83.5-101 [facility] Monocytes Auto (Bld) [#/Vol] Ordered By: Rebecca Workman on 2022 Monocytes (Bld) [#/Vol] 0.7 10*3/uL 0.0-0.8 [facility] Monocytes/100 WBC Auto (Bld) Ordered By: Rebecca Workman on 2022 Monocytes/100 WBC (Bld) 8.2 % . [facility] Neutrophils Auto (Bld) [#/Vo l]Ordered By: Rebecca Workman on 2022 Neutrophils (Bld) [#/Vol] 5.4 10*3/uL 1.8-7.7 [facility] Neutrophils/100 WBC Auto (Bl d)Ordered By: Rebecca Workman on 2022 Neutrophils/100 WBC (Bld) 64.2 % . [facility] No Panel InformationOrdered By: Rebecca Workman on 2022 Estimated GFR () > 60 mL/Min [facility] Comment on above: GFR estimated refere nce range: According to KDOQI guidelines, <60 ml/min/1.73m2 is sufficient to diagnose a patient with chronic kidney disease. Pharmacy Creatinine Clearance (Chem N/A [facility] Prostate Specific Antigen Screen 0.600 ng/mL 0.000-4.000 [facility] Platelet mean volume Auto (B ld) [Entitic vol]Ordered By: Rebecca Workman on 2022 Platelet mean volume (Bld) [Entitic vol] 7.6 fL 6.6-10.1 [facility] Platelets Auto (Bld) [#/Vol] Ordered By: Rebecca Workman on 2022 Platelets (Bld) [#/Vol] 296 10*3/uL 150-450 [facility] Protein [Mass/volume] in Ser um or PlasmaOrdered By: Rebecca Workman on 2022 Protein [Mass/Vol] 6.7 g/dL 6.1-7.9 [facility] RBC Auto (Bld) [#/Vol]Ordere d By: Rebecca Workman on 2022 RBC (Bld) [#/Vol] 4.68 10*6/uL 3.90-5.60 [facility] Serum or plasma alanine shah otransferase measurement without P-5'-P (enzymatic activiOrdered By: Rebecca Workman on 2022 ALT No additional P-5'-P [Catalytic activity/Vol] 22 U/L 10-60 [facility] Serum or plasma albumin/glob ulin mass ratioOrdered By: Rebecca Workman on 2022 Albumin/Globulin [Mass ratio] 1.2 {ratio} [facility] Serum or plasma alkaline ric sphatase measurement (enzymatic activity/volume)Ordered By: Rebecca Workman on 2022 ALP [Catalytic activity/Vol] 103 U/L 32-92 [facility] Serum or plasma anion gap de terminationOrdered By: Rebecca Workman on 2022 Anion gap [Moles/Vol] 12.1 mmol/L 6.0-15.0 [facility] Serum or plasma aspartate am inotransferase measurement (enzymatic activity/volume)Ordered By: Rebecca Workman on 2022 AST [Catalytic activity/Vol] 18 U/L 10-42 [facility] Serum or plasma calcium ashley urement (mass/volume)Ordered By: Rebecca Rosales on 2022 Calcium [Mass/Vol] 9.5 mg/dL 8.2-10.2 [facility] Serum or plasma chloride efraín surement (moles/volume)Ordered By: Rebecca Workman on 2022 Chloride [Moles/Vol] 102 mmol/L 95-114 [facility] Serum or plasma glucose ashley urement (mass/volume)Ordered By: Rebecca Rosales on 2022 Glucose [Mass/Vol] 90 mg/dL 70-100 [facility] Comment on above: ADA recommended refe [...] Cholesterol in HDL [Mass/Vol] 34 mg/dL 29-71 [facility] Comment on above: HDL CHOL ATP-III CLA SSIFICATION Cardiovascular Risk HDL > or equal to 60 mg/dL LOW HDL < 40 mg/dL HIGH HDL CHOL ATP-III CLA SSIFICATION Cardiovascular RiskHDL > or equal to 60 mg/dL LOWHDL < 40 mg/dL HIGH Serum or plasma potassium me asurement (moles/volume)Ordered By: Rebecca Workman on 2022 Potassium [Moles/Vol] 4.5 mmol/L 3.5-5.1 [facility] Serum or plasma sodium measu rement (moles/volume)Ordered By: Rebecca Rosales on 2022 Sodium [Moles/Vol] 134 mmol/L 136-146 [facility] Serum or plasma total biliru bin measurement (mass/volume)Ordered By: Rebecca Workman on 2022 Bilirubin [Mass/Vol] 0.7 mg/dL 0.3-1.2 [facility] Serum or plasma total carbon dioxide measurement (moles/volume)Ordered By: Rebecca Workman on 2022 CO2 [Moles/Vol] 24.4 mmol/L 22.0-30.0 [facility] Serum or plasma total choles terol/high density lipoprotein (HDL) cholesterol mass ratOrdered By: Rebecca Workman on 2022 Cholesterol.total/Chol esterol in HDL [Mass ratio] 4.4 {ratio} <5.0 [facility] Serum or plasma urea nitroge n measurement (mass/volume)Ordered By: Rebecca Workman on 2022 Urea nitrogen [Mass/Vol] 11 mg/dL 9-23 [facility] TSH DL <= 0.005 mIU/L QnOrde red By: Rebecca Workman on 2022 TSH Qn 2.95 m[IU]/L 0.45-5.33 [facility] Triglyceride [Mass/volume] i n Serum or PlasmaOrdered By: Rebecca Workman on 2022 Triglyceride [Mass/Vol] 139 mg/dL 35-149 [facility] Comment on above: TRIG ATP III CLASSIF [...] HbA1c (Bld) [Mass fraction] 5.4 % Normal [facility] Comment on above: Result Comment: Gaby hwangjada Diagnosis HbA1c (%) --------- Diabetic > 6.4 Prediabetes 5.7-6.4 Normal < 5.7 Performed By: #### L 500.07191 #### Test performed at: [address] [address] B12on 2021 Cobalamin (Vitamin B12) [Mass/Vol] 649 pg/mL Normal 193-986 [facility] Comment on above: Order Comment: Is pa tient fasting? NO Performed By: #### L 500.58370, L500.23324, L500.20161, L500.17775, L500.37840, L500.80404 #### Test performed at: [place] [id number] CBCon 2021 Erythrocyte distribution width (RBC) [Ratio] 14.1 % Normal 11.5-14.5 [facility] Comment on above: Performed By: #### L 200.79946 #### Test performed at: [address] [address] Hematocrit (Bld) [Volume fraction] 43.9 % Normal 39.0-55.0 [facility] Comment on above: Performed By: #### L 200.20966 #### Test performed at: [address] [address] Hemoglobin (Bld) [Mass/Vol] 14.4 g/dL Normal 14.0-16.5 [facility] Comment on above: Performed By: #### L 200.73541 #### Test performed at: [address] [address] MCH (RBC) [Entitic mass] 28.7 pg Normal 25.4-34.6 [facility] Comment on above: Performed By: #### L 200.59665 #### Test performed at: [address] [address] MCHC (RBC) [Mass/Vol] 32.8 g/dL Normal 31.5-36.5 [facility] Comment on above: Performed By: #### L 200.97708 #### Test performed at: [address] [address] MCV (RBC) [Entitic vol] 87.6 fL Normal 80.0-100.0 [facility] Comment on above: Performed By: #### L 200.75773 #### Test performed at: [address] [address] NRBC # 0.000 K/uL Normal 0-0.012 [facility] Comment on above: Performed By: #### L 200.02828 #### Test performed at: [address] [address] NRBC % 0.0 /100 WBC Normal 0-0.2 [facility] Comment on above: Performed By: #### L 200.45384 #### Test performed at: [address] [address] Platelet mean volume (Bld) [Entitic vol] 9.9 fL Normal 8.7-12.4 [facility] Comment on above: Performed By: #### L 200.38768 #### Test performed at: [address] [address] Platelets (Bld) [#/Vol] 303 10*3/uL Normal 140-440 [facility] Comment on above: Performed By: #### L 200.29755 #### Test performed at: [address] [address] RBC (Bld) [#/Vol] 5.01 10*6/uL Normal 3.5-5.5 [facility] Comment on above: Performed By: #### L 200.66787 #### Test performed at: [address] [address] WBC (Bld) [#/Vol] 9.6 10*3/uL Normal 3.9-11.0 [facility] Comment on above: Performed By: #### L 200.72196 #### Test performed at: [address] [address] COMP META PANELon 2021 Albumin [Mass/Vol] 4.0 g/dL Normal 3.4-5.0 [facility] Comment on above: Order Comment: Is pa tient fasting? NO Performed By: #### L 500.77219, L500.91359, L500.41678, L500.13137, L500.24638, L500.70608 #### Test performed at: [address] [address] ALK PHOS TOTAL 116 U/L Normal 45-117 [facility] Comment on above: Order Comment: Is pa tient fasting? NO Performed By: #### L 500.94725, L500.87886, L500.62744, L500.16234, L500.34171, L500.89520 #### Test performed at: [address] [address] ALT [Catalytic activity/Vol] 28 U/L Normal 13-61 [facility] Comment on above: Order Comment: Is pa tient fasting? NO Performed By: #### L 500.54679, L500.53803, L500.90365, L500.79843, L500.57245, L500.18063 #### Test performed at: [address] [address] AST [Catalytic activity/Vol] 23 U/L Normal 15-37 [facility] Comment on above: Order Comment: Is pa tient fasting? NO Performed By: #### L 500.98994, L500.83043, L500.87039, L500.52903, L500.92078, L500.17166 #### Test performed at: [address] [address] BILI TOTAL 0.6 mg/dL Normal 0.2-1.0 [facility] Comment on above: Order Comment: Is pa tient fasting? NO Performed By: #### L 500.09147, L500.79703, L500.12966, L500.53989, L500.71107, L500.03909 #### Test performed at: [address] [address] Calcium [Mass/Vol] 8.7 mg/dL Normal 8.5-10.1 [facility] Comment on above: Order Comment: Is pa tient fasting? NO Performed By: #### L 500.97282, L500.59338, L500.31530, L500.21641, L500.07224, L500.34210 #### Test performed at: [address] [address] Chloride [Moles/Vol] 106 mmol/L Normal 98-107 [facility] Comment on above: Order Comment: Is pa tient fasting? NO Performed By: #### L 500.24363, L500.47002, L500.87128, L500.68560, L500.90081, L500.54987 #### Test performed at: [address] [address] CO2 [Moles/Vol] 24 mmol/L Normal 21-32 [facility] Comment on above: Order Comment: Is pa tient fasting? NO Performed By: #### L 500.18806, L500.80739, L500.92762, L500.63223, L500.87963, L500.78252 #### Test performed at: [address] [address] Creatinine [Mass/Vol] 0.894 mg/dL Normal 0.700-1.300 [facility] Comment on above: Order Comment: Is pa tient fasting? NO Performed By: #### L 500.88327, L500.68742, L500.14266, L500.19013, L500.99310, L500.01109 #### Test performed at: [address] [address] Glucose [Mass/Vol] 85 mg/dL Normal 70-99 [facility] Comment on above: Order Comment: Is pa tient fasting? NO Result Comment: Fast ing GLUCOSE reference range has been updated per (ADA) [place] [employer]'s recommendation. 08/04/2018 Performed By: #### L 500.04982, L500.28236, L500.38671, L500.18771, L500.89692, L500.98316 #### Test performed at: [address] [address] Potassium [Moles/Vol] 4.4 mmol/L Normal 3.5-5.1 [facility] Comment on above: Order Comment: Is pa tient fasting? NO Performed By: #### L 500.83069, L500.03707, L500.50485, L500.80618, L500.29362, L500.89273 #### Test performed at: [address] [address] Protein [Mass/Vol] 7.8 g/dL Normal 6.4-8.2 [facility] Comment on above: Order Comment: Is pa tient fasting? NO Performed By: #### L 500.35569, L500.62377, L500.26952, L500.93542, L500.84116, L500.35195 #### Test performed at: [place] [address] [place] [address] Sodium [Moles/Vol] 136 mmol/L Normal 136-145 [facility] Comment on above: Order Comment: Is pa tient fasting? NO Performed By: #### L 500.74570, L500.72156, L500.45393, L500.30092, L500.10070, L500.24215 #### Test performed at: [place] [id number] Urea nitrogen [Mass/Vol] 10 mg/dL Normal 7-18 [facility] Comment on above: Order Comment: Is pa tient fasting? NO Performed By: #### L 500.61601, L500.87507, L500.04550, L500.77604, L500.47502, L500.68007 #### Test performed at: [place] [id number] GFR ESTIMATEon 2021 IF AMER > 60 Normal > 60 [facility] Comment on above: Order Comment: Is pa [...] for clinical interpretation. Performed By: #### L 500.59566, L500.73604, L500.14411, L500.84738, L500.52931, L500.80600 #### Test performed at: [place] [address] IF non-AFR AMER > 60 Normal > 60 [facility] Comment on above: Order Comment: Is pa tient fasting? NO Performed By: #### L 500.11361, L500.92116, L500.12774, L500.09550, L500.44101, L500.53006 #### Test performed at: [address] [address] LIPID PROFILEon 2021 Cholesterol [Mass/Vol] 186 mg/dL Normal <200 [facility] Comment on above: Order Comment: Is pa tient fasting? NO Result Comment: <200 mg/dL (Desirable) 200-240 mg/dL (Borderline) >240 mg/dL (High Risk) Performed By: #### L 500.16218, L500.67980, L500.17066, L500.27239, L500.44597, L500.38428 #### Test performed at: [place] [id number] Cholesterol in HDL [Mass/Vol] 39 mg/dL Low 40-60 [facility] Comment on above: Order Comment: Is pa tient fasting? NO Performed By: #### L 500.85970, L500.65784, L500.58176, L500.87390, L500.40993, L500.51079 #### Test performed at: [address] [address] Cholesterol in LDL [Mass/Vol] 108 mg/dL Normal 60-130 [facility] Comment on above: Order Comment: Is pa tient fasting? NO Performed By: #### L 500.42800, L500.10043, L500.62492, L500.10100, L500.66245, L500.51772 #### Test performed at: [address] [address] Triglyceride [Mass/Vol] 241 mg/dL High <150 [facility] Comment on above: Order Comment: Is pa tient fasting? NO Result Comment: <150 mg/dL (Normal) 150-199 mg/dL (Borderline) 200-499 mg/dL (High) >500 mg/dL (Very High) Performed By: #### L 500.49662, L500.79769, L500.32954, L500.23329, L500.49387, L500.06037 #### Test performed at: [place] [id number] PROS SPEC AGon 2021 PROS SPEC AG 0.712 ng/mL Normal 0-4.0 [facility] Comment on above: Order Comment: Is pa tient fasting? NO Performed By: #### L 500.29481, L500.19828, L500.10118, L500.26911, L500.59278, L500.77322 #### Test performed at: [place] [id number] TSH ULTRA SENSon 2021 TSH ULTRA SENS 2.770 uIU/mL Normal 0.358-3.74 [facility] Comment on above: Order Comment: Is pa tient fasting? NO Performed By: #### L 500.39448, L500.11605, L500.28481, L500.39158, L500.58922, L500.17532 #### Test performed at: [place] [id number] LUMB SP COMP W FLEX/EXT 6 VW Son 02-22-2020 LUMB SP COMP W FLEX/EXT 6 VWS STUDY: LUMB SP COMP W FLEX/EXT 6 VWS ; 02/22/2020 9:06 am INDICATION: PAIN. COMPARISON: None. ACCESSION NUMBER(S): [id number] ORDERING CLINICIAN: Kranthi Mcpherson FINDINGS: No fracture or subluxation of the lumbar spine. Mild disc height loss at L4-5. Scattered small endplate osteophytes. Multilevel facet arthropathy. 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 No spondylolisthesis. No spondylolysis. No instability on flexion or extension. IMPRESSION: Degenerative changes of the lumbar spine without instability. Normal [facility] Vital Signs Date Time Vital Sign Value Performing Clinician Amanda delgado 05-18-2022 18:00-0500 Diastolic blood pressure 80 mm[Hg] MD Rebecca Workman Work Phone: [facility] 05-18-2022 18:00-0500 Heart rate 77 /min MD Rebecca Workman Work Phone: [facility] 05-18-2022 18:00-0500 Respiratory rate 18 /min MD Rebecca Workman Work Phone: [facility] 05-18-2022 18:00-0500 SaO2% (BldA) [Mass fraction] 99 % MD Rebecca Workman Work Phone: [facility] 05-18-2022 18:00-0500 Systolic blood pressure 133 mm[Hg] MD Rebecca Workman Work Phone: [facility] 05-18-2022 14:01-0500 Body height 177.8 cm MD Rebecca Workman Work Phone: [facility] 05-18-2022 14:01-0500 Body temperature 98.6 [degF] MD Rebecca Workman Work Phone: [facility] 05-18-2022 14:01-0500 Body weight 130.7 kg MD Rebecca Workman Work Phone: [facility] 04-02-2022 10:15-0500 Blood Pressure Location SARAH ALANIS [facility] 04-02-2022 10:15-0500 Diastolic blood pressure 80 mm[Hg] SARAH ALANIS [facility] 04-02-2022 10:15-0500 Heart rate 68 /min SARAH ALANIS [facility] Jose Luis 04-02-2022 10:15-0500 Systolic blood pressure 122 mm[Hg] SARAH ALANIS [facility] [place] Encounters Encounter Date Encounter Type Care Provider Facility Start: 01-22-2024 End: 01-22-2024 ambulatory BENJI CERON Facility:[facility] Start: 01-22-2024 End: 01-22-2024 Subsequent hospital visit by physician Flaco Herron Work Phone: Radiology Comment on above: Heel ulcer, left, wi th fat layer exposed (HCC) [L97.422] Start: 01-15-2024 End: 01-15-2024 Orders Only Benji Ceron DPM Work Phone: [facility] Comment on above: Heel ulcer, left, wi th fat layer exposed (HCC) (Primary Dx) Start: 01-07-2024 End: 01-07-2024 ambulatory AMAR B MUTNAL Not Available Start: 12-17-2023 End: 12-17-2023 ambulatory AMAR B MUTNAL Not Available Start: 12-10-2023 End: 12-10-2023 ambulatory AMAR B MUTNAL Not Available Start: 12-04-2023 End: 12-04-2023 ambulatory REBECCA WORKMAN Not Available Start: 11-26-2023 End: 11-30-2023 Evaluation and management of inpatient MOHAMUD [facility] Start: 11-25-2023 End: 11-25-2023 ambulatory AMAR B MUTNAL Not Available Start: 11-25-2023 End: 11-26-2023 ambulatory AMAR MUTNAL [facility] Start: 11-18-2023 End: 11-22-2023 ambulatory AMAR MUTNAL [facility] Start: 11-12-2023 End: 11-12-2023 ambulatory AMAR B MUTNAL Not Available Start: 11-04-2023 End: 11-04-2023 ambulatory REBECCA WORKMAN [facility] Start: 10-15-2023 End: 10-15-2023 ambulatory CAROLYNE CRAWFORD Not Available Start: 09-17-2023 End: 09-17-2023 ambulatory REBECCA WORKMAN Not Available Start: 10-09-2022 ambulatory YVONNE KIRAN Facility:H 1 Start: 10-08-2022 ambulatory BERTHA TEJADA Faci lity:[facility]1 Start: 09-17-2022 End: 09-18-2022 ambulatory PETER D HIGHLANDER Facility:[facility]1 Start: 08-30-2022 End: 08-31-2022 ambulatory BERTHA D TERRELL Facility:[facility] Start: 08-23-2022 End: 08-24-2022 ambulatory BERTHA D TERRELL Facility:[facility] Start: 08-09-2022 End: 08-10-2022 ambulatory BERTHA TEJADA Facility:[facility] Start: 07-30-2022 End: 07-31-2022 ambulatory BERTHA Elias [facility] Facility:[facility]1 Start: 07-26-2022 End: 07-26-[address] ASHU SUN Facility:[facility] Start: 07-23-2022 End: 07-24-2022 ambulatory [facility] Start: 07-08-2022 End: 07-23-[address] DOCTOR PEREZ Facility:[facility]1 Start: 05-30-2022 End: 05-31-2022 ambulatory SARAH ALANIS Facility:[facility] [place] Start: 05-20-2022 End: 05-21-2022 ambulatory Rebecca Workman Facility:[facility] Start: 05-18-2022 End: 05-18-2022 Emergency department patient visit MD Rebecca Workman Work Phone: [facility] Work Phone: Start: 04-24-2022 End: 04-24-2022 ambulatory MD Rebecca Workman Work Phone: [facility] Work Phone: Start: 04-24-2022 End: 04-24-2022 Patient encounter procedure MD Rebecca Workman Work Phone: [facility]Ultrasound [facility] [place] Start: 04-02-2022 End: 04-03-2022 ambulatory SARAH ALANIS Facility:[facility] [place] Start: 04-02-2022 End: 04-02-2022 Patient encounter procedure SARAH ALANIS [facility] Start: 2022 End: 2022 Patient encounter procedure MD Rebecca Workman Work Phone: [facility]Electrodiagnostics Procedures Date Procedure Procedure Detail Performing Clinician Start: 11-04-2023 Lipid 1996 panel - S jeffy or Plasma [facility] [place] Work Phone: Start: 05-18-2022 X-ray of left foot MD Maggy Workman Work Phone: Start: 04-24-2022 Duplex scan of lower limb veins MD Rebecca Workman Work Phone: Start: 12-22-2018 Back structure, excl uding neck (body structure) SARAH INFANTERY Plan of Treatment Date Care Activity Detail Author Start: 11-03-2028 Lipid panel Lipid Screening [facility] Start: 11-25-2026 Diabetes Screening Diabetes Screenin g [facility] Start: 01-22-2024 End: 01-22-2024 Patient encounter procedure Radiology Comment on above: XR FOOT GENERAL 3V A P/LAT/OBL LEFT left heel pressure u lcer Start: 01-11-2024 Covid-19 Vaccine ( season) Covid-19 Vaccine ( season) [facility] Start: 01-11-2024 Influenza vaccination Influenza Vacc ine (#1) [facility] Start: 2023 RSV Vaccine (1 - 1-d ose 60+ series) RSV Vaccine (1 - 1-dose 60+ series) [facility] Start: 05-18-2022 Duplex scan of lower limb veins US venous duplex LE LT [facility] Start: 05-18-2022 US Lower extremity v ein - left [facility] Start: 05-18-2022 Bacteria identified in Blood by Culture Blood Culture [facility] Start: 04-24-2022 Duplex scan of lower limb veins US venous duplex LE BI [facility] Start: 04-24-2022 US Lower extremity v ein - bilateral [facility] Start: 2018 Prostate specific antigen measurement Prostate Cancer Screening Discussion [facility] Start: 2013 Shingrix Vaccine (1 of 2) Shingrix Vaccine (1 of 2) [facility] Start: 11-22-2012 Diabetes Screening Diabetes Screenin g [facility] Start: 01-26-2008 Screening for malign ant neoplasm of colon [facility] Start: 1998 Lipid panel Lipid Screening [facility] Start: 1982 Urine microalbumin profile DTaP,Tdap,Td Vaccine (1 - Tdap) [facility] Start: 1981 Anxiety Screening Anxiety Screening [facility] Start: 1981 Depression Screening Depression Scre ening [facility] Start: 1981 Hepatitis C screening Hepatitis C Sc reening [facility] Start: 1981 HIV screening HIV Screening [facility] Patient Education Cellulitis (Sk in Infection), Adult (DC) [facility] Work Phone: Patient referral [facility] Work Phone: End: 02-13-2025 XR Foot - left AP and Lateral and oblique XR FOOT GENERAL 3V AP/LAT/OBL LEFT Radiology Routine Heel ulcer, left, with fat layer exposed (HCC) 1 Occurrences starting 01/15/2024 until 02/13/2025 [facility] Work Phone: Comment on above: 1 Occurrences starti ng 01/15/2024 until 02/13/2025 XR Foot - left AP an d Lateral and oblique XR FOOT GENERAL 3V AP/LAT/OBL LEFT Radiology Routine Heel ulcer, left, with fat layer exposed (HCC) 01/22/2024 1:19 PM EDT [facility] Work Phone: Payers Date Payer Category Payer Medicare [id number] 2022 Self-pay [id number] 2014 Unknown MMO MMO [employer]PER[employer] PPO [id number] 2014-Present [phone] [address] [place] [address] PPO [id number] 1963 Unknown [id number] 2.16.840.1.645918.3.579.2.7 27 1963 Unknown [id number] 2.16.840.1.775442.3.579.2.7 27 1963 Unknown [id number] 2.16.840.1.700927.3.579.2.5 93 1963 Unknown [id number] 2.16.840.1.844203.3.579.2.5 93 1963 Unknown [id number] 2.16.840.1.633739.3.579.2.5 93 1963 Unknown [id number] 2.16.840.1.524033.3.579.2.5 93 1963 Unknown [id number] 2.16.840.1.568967.3.579.2.5 93 1963 Unknown [id number] 2.16.840.1.493803.3.579.2.5 93 1963 Unknown [id number] 2.16.840.1.442017.3.579.2.5 93 1963 Unknown [id number] 2.16.840.1.037096.3.579.2.5 93 1963 Unknown [id number] 2.16.840.1.951414.3.579.2.5 93 1963 Unknown [id number] 2.16.840.1.331768.3.579.2.5 93 1963 Unknown [id number] 2.16.840.1.391217.3.579.2.5 93 1963 Unknown [id number] 2.16.840.1.435646.3.579.2.1 245 1963 Unknown [id number] 2.16.840.1.662546.3.579.2.1 82 1963 Unknown [id number] 2.16.840.1.841876.3.579.2.1 82 1963 Unknown [id number] 2.16.840.1.730360.3.579.2.1 82 1963 Unknown [id number] 2.16.840.1.536623.3.579.2.1 82 1963 Unknown [id number] 2.16.840.1.525472.3.579.2.1 259 1963 Unknown [id number] 2.16.840.1.786764.3.579.2.1 259 1963 Unknown [id number] 2.16.840.1.955629.3.579.2.1 259 1963 Unknown [id number] 2.16.840.1.836323.3.579.2.1 259 1963 Unknown [id number] 2.16.840.1.244887.3.579.2.1 259 1963 Unknown [id number] 2.16.840.1.242950.3.579.2.1 259 1963 Unknown [id number] 2.16.840.1.005098.3.579.2.1 259 1963 Unknown [id number] 2.16.840.1.616509.3.579.2.1 259 1963 Unknown [id number] 2.16.840.1.775213.3.579.2.1 259 1963 Unknown [id number] 2.16.840.1.712406.3.579.2.1 259 1963 Unknown [id number] 2.16.840.1.847465.3.579.2.1 259 1959 Unknown [id number] Unknown [id number] 2.16.840.1.099414.3.579.2.[address] [facility] [id number] Social History Date Type Detail Facility Start: 11-19-2018 End: 11-23-2018 Tobacco smoking status NHIS Never smoked tobacco (finding) [facility] Start: 1965 Sex Assigned At Male [facility] Tobacco smoking status Never [facility] Start: 12-07-2018 End: 01-22-2024 Sex Assigned At Male [facility] Start: 11-23-2018 Tobacco use and exposure Smokeless tobacco non-user [facility] Start: 12-07-2018 Alcoholic beverage intake Not Asked [facility] Start: 12-07-2018 End: 01-22-2024 History of Social function [facility] Start: 1965 Sex assigned at Not on file [facility] Functional Status Date Assessment Result Facility 04-02-2022 Functional Status N/A [facility] [place] Clinical Notes 04-02-2022 to 01-22-2024 Note Date & Type Note Facility 01-22-2024 Note HNO ID: [id number] Author: ETELVINA TILLEY RT(R) Service: ? Author Type: Technologist Type: Progress Notes Filed: 01/22/2024 13:20 Note Text: Radiology Service Progress Note PATIENT NAME: Wendie Sorensen DATE OF SERVICE: January 22, 2024 TIME: 1:20 PM PATIENT IDENTITY VERIFICATION COMPLETED USING TWO (2) IDENTIFIERS: Name and Date of confirmed by patient verbally. FALL SCREENING: Has the patient had 2 falls in the last year or 1 fall with injury or currently using an Ambulatory Assistive Device (Walker, Cane, Wheelchair, Crutches, etc.)? No PATIENT GENDER DATA: Male PATIENT RELEVANT IMPLANT DATA REVIEWED: Not Applicable PATIENT PRESENTS WITH AN IMPLANTABLE OR ATTACHED TRIAL MANAGEMENT ASSOCIATE: No RADIOLOGY DEPARTMENT: General X-ray: Exam(s) Completed: Lower Extremity X-Ray(s): Foot, Left and Wt. Bearing PERIPHERAL IV DATA: Not applicable SIGNED BY: RT Renetta(R) January 22, 2024 1:20 PM [facility] 11-12-2023 Note FINDINGS: Severe right hip arthritis, minimal progression from September 17, 2023 for presurgical planning. IMPRESSION: Presurgical planning severe right hip arthritis. TRANSCRIBED BY: ELECTRONICALLY SIGNED BY: Jose Arias MD Not Available 07-23-2022 Note PROCEDURE: XR FOOT L T [...] authenticated by: PIPO MACK Date: 2022-07-23 12:08 [facility] 04-02-2022 Hospital Discharg e instructions Patient Education [...] Follow these instructions at home: Medicines Take [id number]-wruibwk and prescription medicines only as told by [...] 04/25/2001 Document Revised: 04/10/2018 Document Reviewed: 05/14/2017 [employer] Patient Education 2020 [employer]. Follow Up Care 03/25/2022 13:35:31 With:ANNABELLE SIMON, SARAH Ford, URL Address: [address] [place] [id number] Business (1) When:6 weeks [facility] Evaluation + Plan note Future Appointments Appointment Date:05/30/2022 11:15:00 AM Scheduled Provider:SARAH ALANIS PA-C Location:[facility] Appointment Type:URO Office Visit [facility] Evaluation note No assessment inform ation available [facility] [employer] Work Phone: Evaluation note Diagnosis Heel ulcer, left, with fat layer exposed (HCC)- Primary [facility] Heel ulcer, left, with fat layer exposed (HCC) [facility] Narrative No data available for this section [facility] Hospital Discharge instructions Additional Instructions Come back to the infusion center twice on Friday and twice on Friday. Call alterations supervisor and wound care center on Friday morning. Keep the wound clean dry and covered at all times.[facility] [employer] Work Phone: Progress note No data available for this section [facility] Reason for referral (narrative)* Diagnostic Procedure Only (Routine) - Authorized Specialty Diagnoses / Procedures Referred By Contian t Referred To Contact XR IMAGING Diagnoses Heel ulcer, left, with fat layer exposed (HCC) Procedures XR FOOT GENERAL 3V AP/LAT/OBL LEFT RADEX FOOT COMPLETE MINIMUM 3 VIEWS Benji Ceron DPM [id number] [place] [address] [place] [address] Referral ID Status Reason Start Date Expiration Date Visits Requested Visits Authorized [id number] Authorized Auto-Generat ed Referral 01/15/2024 02/13/2025 1 1 [facility] N[facility]* Diagnostic Procedure Only (Routine) - Authorized Specialty Diagnoses / Procedures Referred By Contac t Referred To Contact XR IMAGING Diagnoses Heel ulcer, left, with fat layer exposed (HCC) Procedures XR FOOT GENERAL 3V AP/LAT/OBL LEFT RADEX FOOT COMPLETE MINIMUM 3 VIEWS Benji Ceron DPM [id number] [place] [address] [place] [address] Referral ID Status Reason Start Date Expiration Date Visits Requested Visits Authorized [id number] Authorized Auto-Generate d Referral Patient Cleared - Qualified 100% FAS 01/20/2024 04/19/2024 99 99 [facility] Summary Purpose Family History No Family History [...] ized section and content) DATE CREATED AUTHOR 02/14/2021 [facility] DATE CREATED AUTHOR AUTHOR'S ORGANIZ ATION 06/05/2022 [facility] DATE CREATED AUTHOR AUTHOR'S ORGANIZ ATION 10/21/2022 [facility] DATE CREATED AUTHOR AUTHOR'S ORGANIZ ATION 05/26/2023 [facility] DATE CREATED AUTHOR AUTHOR'S ORGANIZ ATION 11/09/2023 [facility] DATE CREATED AUTHOR AUTHOR'S ORGANIZ ATION 12/02/2023 [facility] DATE CREATED AUTHOR AUTHOR'S ORGANIZ ATION 01/09/2024 [facility] DATE CREATED AUTHOR AUTHOR'S ORGANIZ ATION 01/24/2024 [facility] Care Teams (unrecognized sec tion and content) Team Status: Inactive Member Role Status Dates Rebecca Workman MD Primary Care Provider, At tending Provider Active Team Status: Active Member Role Status Dates Rebecca Workman MD Primary Care Provider Act eddie Team Status: Inactive Member Role Status Dates Rebecca Workman MD Primary Care Provider Act eddie Thom Crabtree APRN Emergency Provider Active Treasury Director Relationship Specialty Start Date End Date Rudy Li MD [address] [place] [address] PCP - General 03/06/09 Treasury Director Relationship Specialty Start Date End Date Rudy Li MD [address] [place] [address] (Fax) PCP - General 03/06/09 Goals (unrecognized section and content) Goals may be documented in a n alternate section No data available for this sectionGoals may be documented in an alternate sectionGoals may be documented in an alternate sectionGoals may be documented in an alternate section Source Comments (unrecognize d section and content) In the event this informatio n is protected by the Federal Confidentiality of Alcohol and Drug Abuse Patient Records regulations: The Federal rules restrict any use of the information to criminally investigate or prosecute any alcohol or drug abuse patient.[facility] the event this information is protected by the Federal Confidentiality of Alcohol and Drug Abuse Patient Records regulations: The Federal rules restrict any use of the information to criminally investigate or prosecute any alcohol or drug abuse patient.[facility] FOR RECORDS PERTAINING TO PATIENTS WHO ARE [...] BE BASED ON THE PRIMARY CLINICAL RECORDS. [facility] [employer] [facility]. provides no warranty or guarantee of the accuracy or completeness of information in this document.
== END 2024-01-28 16:00 | disposition home or self-care (01) ==
LOC: VC 16:00
DX: L97.422 Non-pressure chronic ulcer of left heel and midfoot with fat layer exposed (principal)
CPT/HCPCS: 93923